=== PATIENT | male | born 1940 | race Caucasian/White ===

== ENCOUNTER → 2016-10-07 | Outpatient (CLI) | payer MEDICARE, OTHER | END | disposition home or self-care (01) | LOC: LAB.O 12:03 | PROVIDERS: ATTEND Internal Medicine Nephrology | DX: N18.4 Chronic kidney disease, stage 4 (severe) (principal) ==

== ENCOUNTER → 2016-12-08 | Outpatient (CLI) | payer MEDICARE, OTHER | END | disposition home or self-care (01) | LOC: GMAB 10:22 | PROVIDERS: ATTEND Family Medicine | DX: Z12.5 Encounter for screening for malignant neoplasm of prostate (principal); I10 Essential (primary) hypertension; E11.8 Type 2 diabetes mellitus with unspecified complications | CPT/HCPCS: 84443; G0103 ==

== ENCOUNTER → 2017-02-24 | Outpatient (CLI) | payer MEDICARE, OTHER | END | disposition home or self-care (01) | LOC: LAB.O 09:24 | PROVIDERS: ATTEND Internal Medicine Nephrology | DX: N18.4 Chronic kidney disease, stage 4 (severe) (principal) ==

== ENCOUNTER → 2017-10-14 | Outpatient (CLI) | payer MEDICARE, OTHER | LOC: LAB.O 08:26 | PROVIDERS: ATTEND Internal Medicine Nephrology | DX: N18.4 Chronic kidney disease, stage 4 (severe) (principal) ==

== ENCOUNTER → 2017-10-15 | Outpatient (CLI) | payer MEDICARE, OTHER ==
--- NOTE | 2017-10-15 13:51 | US ---
EXAM DESCRIPTION: Carotid Duplex CLINICAL HISTORY: CAROTID ARTERY STENOSIS history of prior right carotid surgery COMPARISON: November 08, 2014 TECHNIQUE: Bilateral duplex carotid sonography with grayscale, spectral, and color Doppler imaging. FINDINGS: On the right, intimal thickening in the common carotid artery with either postsurgical or poststenting changes in the distal common carotid artery and origin of the ICA is present without significant stenosis. The peak right CCA velocities are 105/13 cm/s with peak ICA velocities present proximally at 99/14 cm/s. Antegrade flow in the external carotid and vertebral is demonstrated with an ICA/CCA ratio of 0.9. On the left, intimal thickening in the common carotid artery is present with patent ECA origin and modest echogenic plaque at the origin of the ICA. Peak left CCA velocities are 112/17 cm/s and peak ICA velocities are 121/25 cm/s. The ICA/CCA ratio is 1.1 and antegrade flow in the external carotid and vertebral artery is present. IMPRESSION: Postsurgical changes at with widely patent vessel in the right carotid bifurcation region and modest plaque estimated at 30-40% stenotic at the origin of the left ICA without significant flow changes. Antegrade flow both vertebral arteries. Electronically signed by: Von Bustos MD 10/15/2017 1:50 PM CDT
== END ==
LOC: US 09:00
PROVIDERS: ATTEND Family Medicine
DX: I65.23 Occlusion and stenosis of bilateral carotid arteries (principal)

== ENCOUNTER → 2018-02-28 | Outpatient (CLI) | payer MEDICARE, OTHER | LOC: LAB.O 07:51 | PROVIDERS: ATTEND Internal Medicine Nephrology | DX: E11.21 Type 2 diabetes mellitus with diabetic nephropathy (principal); N18.4 Chronic kidney disease, stage 4 (severe); I12.9 Hypertensive chronic kidney disease with stage 1 through stage 4 chronic kidney disease, or unspecified chronic kidney disease; D64.9 Anemia, unspecified ==

== ENCOUNTER → 2018-04-13 | Outpatient (CLI) | payer MEDICARE, OTHER | LOC: GMAE 14:48 | PROVIDERS: ATTEND Family Medicine | DX: G60.3 Idiopathic progressive neuropathy (principal); E83.52 Hypercalcemia; R53.82 Chronic fatigue, unspecified ==

== ENCOUNTER → 2018-07-11 | Outpatient (CLI) | payer MEDICARE, OTHER | LOC: GMAE 10:59 | PROVIDERS: ATTEND Family Medicine | DX: N18.4 Chronic kidney disease, stage 4 (severe) (principal) ==

== ENCOUNTER 2018-09-16 14:10 | Emergency (ER) | payer MEDICARE, OTHER ==
--- NOTE | 2018-09-16 14:29 | ED.PDOC ---
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 PHYSICAL ALERT ORIENTED X 3 PAIN IS BETTER AFTER THE NARCOTIC HIS LEFT KNEE EDEMA AND BRUISING NOTED ON THE PATELLA THERE IS TENDERNESS AND SWELLING OVER THE DISTAL FEMUR NO OPEN WOUNDS NO DISTAL NEURO VASCULAR DEFICIT - History of Present Illness Timing/Duration: 1 hour Severity: moderate Improving Factors: immobilization, medication Worsening Factors: movement Associated Symptoms: denies symptoms Allergies/Adverse Reactions: Allergies Morphine Allergy (Verified 03/24/16 16:19) Home Medications: Ambulatory Orders Duloxetine HCl [Cymbalta] 60 mg PO BID #0 05/01/13 Cetirizine HCl [Zyrtec] 10 mg PO BEDTIME 08/28/14 Clopidogrel Bisulfate [Plavix] 75 mg PO QD 06/25/15 Furosemide [Lasix] 40 mg PO DAILY #10 tab 06/25/15 Magnesium Oxide 800 mg PO BID 06/25/15 Metoprolol Tartrate [Lopressor] 12.5 mg PO QAM 06/25/15 Nitroglycerin 0.4 mg Tab [Nitrostat] 1 ea SL .Q5M PRN 06/25/15 Tamsulosin [Flomax] 0.4 mg PO QD 06/25/15 Dulaglutide [Trulicity] 0.75 mg SC WKLY 09/22/15 HYDROcodone 10MG/APAP 325MG [[place] 10/325] 1 tab PO Q6HR PRN 12/23/15 Insulin Lispro [Humalog] 4 unit SC .QAC/HS 12/23/15 Insulin Glargine [Toujeo Solostar] 60 unit SC DAILY #0 12/24/15 Clonazepam 1 mg PO BID PRN #6 tab 03/24/16 Pregabalin [Lyrica] 75 mg PO BID 03/24/16 Review of Systems - Review of Systems Constitutional: States: no symptoms reported EENTM: States: no symptoms reported Respiratory: States: no symptoms reported Cardiology: States: no symptoms reported Gastrointestinal/Abdominal: States: no symptoms reported Genitourinary: States: no symptoms reported Musculoskeletal: States: no symptoms reported, see HPI Skin: States: no symptoms reported Neurological: States: no symptoms reported Endocrine: States: no symptoms reported Hematologic/Lymphatic: States: no symptoms reported Past Medical History (General) - Patient Medical History Hx Seizures: No Hx Stroke: Yes - "mini" Hx Dementia: No Hx Asthma: No Hx of COPD: No Hx Cardiac Disorders: Yes Hx Congestive Heart Failure: Yes Hx Pacemaker: No Hx Hypertension: Yes Hx Thyroid Disease: No Hx Diabetes: Yes Hx Gastroesophageal Reflux: Yes Hx Renal Disease: Yes Hx Cancer: No Hx of HIV: No Hx Hepatitis C: No Hx MRSA: No - Vaccination History Hx Tetanus, Diphtheria Vaccination: Yes Hx Influenza Vaccination: Yes Hx Pneumococcal Vaccination: Yes - Social History Hx Tobacco Use: No Hx Chewing Tobacco Use: No Hx Alcohol Use: No Hx Substance Use: No Hx Substance Use Treatment: No Hx Depression: Yes Hx Physical Abuse: No Hx Emotional Abuse: No Hx Suspected Abuse: No - Female History Patient : No Family Medical History - Family History Father Family History: Unknown Living Status: Hx Family Hypertension: Yes Hx Cardiac Disease: Yes Physical Exam - Physical Exam General Appearance: Alert, Comfortable Eye Exam: bilateral normal, bilateral abnormal EOM Ears, Nose, Throat: hearing grossly normal, normal ENT inspection, normal pharynx Neck: non-tender, full range of motion, supple Respiratory: chest non-tender, lungs clear, normal breath sounds, no respiratory distress Cardiovascular/Chest: normal peripheral pulses, regular rate, rhythm, no edema, no gallop Peripheral Pulses: femoral,right: 2+, femoral,left: 2+, popliteal,right: 2+, popliteal,left: 2+ Gastrointestinal/Abdominal: normal bowel sounds, non tender, soft, no organomegaly, no pulsatile mass, abnormal bowel sounds 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 Copy, Patient Portal Self Enrollment Instructions: DI for Trauma Referrals: MANASA REES MD [Primary Care Provider] - 1-2 Weeks Home Medications: Ambulatory Orders Duloxetine HCl [Cymbalta] 60 mg PO BID #0 05/01/13 Cetirizine HCl [Zyrtec] 10 mg PO BEDTIME 08/28/14 Clopidogrel Bisulfate [Plavix] 75 mg PO QD 06/25/15 Furosemide [Lasix] 40 mg PO DAILY #10 tab 06/25/15 Magnesium Oxide 800 mg PO BID 06/25/15 Metoprolol Tartrate [Lopressor] 12.5 mg PO QAM 06/25/15 Nitroglycerin 0.4 mg Tab [Nitrostat] 1 ea SL .Q5M PRN 06/25/15 Tamsulosin [Flomax] 0.4 mg PO QD 06/25/15 Dulaglutide [Trulicity] 0.75 mg SC WKLY 09/22/15 HYDROcodone 10MG/APAP 325MG [[place] 10/325] 1 tab PO Q6HR PRN 12/23/15 Insulin Lispro [Humalog] 4 unit SC .QAC/HS 12/23/15 Insulin Glargine [Toujeo Solostar] 60 unit SC DAILY #0 12/24/15 Clonazepam 1 mg PO BID PRN #6 tab 03/24/16 Pregabalin [Lyrica] 75 mg PO BID 03/24/16 Transfer to Outside Facility - Transfer Information Accepting Provider:: DR JANETTE NICHOLS MD Accepting Facility: [facility]
[2018-09-16] MEDS ORDERED: fentaNYL CITRATE INJ 50 MCG/ML AMP ONE (15:47)
[2018-09-16] MEDS ORDERED: fentaNYL CITRATE INJ 50 MCG/ML AMP IV ONE ×2 (15:49→17:25)
[2018-09-16 17:03] VITALS: BP 100/59; O2SAT 93
--- NOTE | 2018-09-16 17:07 | RAD ---
EXAM DESCRIPTION: Knee,Left 2 or More Views CLINICAL HISTORY: injury, fall, pain COMPARISON: None. TECHNIQUE: 2 views left FINDINGS: A comminuted fracture of the distal shaft of the left femur is observed. There is slight impaction. There is one shaft width of posterior displacement of the distal fracture fragment. 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 No significant joint effusion is detected. Marked loss of medial joint space is observed in the knee. IMPRESSION: 1. A comminuted fracture of the distal shaft of the left femur is observed. 2. Degenerative changes are observed in the left knee most pronounced the medial joint compartment. Electronically signed by: Oleg Jean MD 09/16/2018 5:05 PM [facility]
[2018-09-16 17:34] VITALS: TEMP 97.8
== END 2018-09-16 17:35 | disposition short-term general hospital (02) ==
LOC: ER 14:10
DX: S72.452A Displaced supracondylar fracture without intracondylar extension of lower end of left femur, initial encounter for closed fracture (principal); I25.10 Atherosclerotic heart disease of native coronary artery without angina pectoris; N18.9 Chronic kidney disease, unspecified; I13.0 Hypertensive heart and chronic kidney disease with heart failure and stage 1 through stage 4 chronic kidney disease, or unspecified chronic kidney disease; F32.9 Major depressive disorder, single episode, unspecified; I50.9 Heart failure, unspecified; E11.22 Type 2 diabetes mellitus with diabetic chronic kidney disease; K21.9 Gastro-esophageal reflux disease without esophagitis; Z79.02 Long term (current) use of antithrombotics/antiplatelets; Z95.5 Presence of coronary angioplasty implant and graft; Z88.5 Allergy status to narcotic agent; Z86.73 Personal history of transient ischemic attack (TIA), and cerebral infarction without residual deficits; Z79.899 Other long term (current) drug therapy; Z79.4 Long term (current) use of insulin; W19.XXXA Unspecified fall, initial encounter; Y92.000 Kitchen of unspecified non-institutional (private) residence as the place of occurrence of the external cause
CPT/HCPCS: 36415; 73560; 80053; 85025; 85610; 85730; J3010

== ENCOUNTER 2018-10-12 13:48 | Emergency (ER) | payer MEDICARE, OTHER ==
--- NOTE | 2018-10-12 14:22 | ED.PDOC ---
History of Present Illness - General Chief Complaint: Syncope/Near Syncope Stated Complaint: Pt had near syncopal event while at PT Time Seen by Provider: 10/12/18 14:13 Source: patient, family, EMS Exam Limitations: clinical condition - History of Present Illness Initial Comments: Patient presents after being found unresponsive at [facility]. He is there for rehabilitation for a left femur fracture one week ago that was surgically repaired. He was on Plavix before that because he has two cardiac stents but was taken off for the surgery. He has been on Lovenox for post-surgical DVT prophylaxis. He presents to the E.D. alert to name and place. His GCS is 15. His says that he is at his baseline. No history of dementia. Has IDDM and has had renal insufficiency due to that. Denies dyspnea or chest pain. His systolic blood pressure was in the 60s when EMS arrived but it went to the low 100s after 250 ml IV NS. No history of DVT or PE. No other complaints. Timing/Duration: unsure Severity: moderate Improving Factors: nothing, eating Associated Symptoms: denies symptoms Allergies/Adverse Reactions: Allergies Morphine Allergy (Verified 10/12/18 14:22) Home Medications: Ambulatory Orders Duloxetine HCl [Cymbalta] 60 mg PO BID #0 05/01/13 Clopidogrel Bisulfate [Plavix] 75 mg PO QD 06/25/15 Furosemide [Lasix] 40 mg PO DAILY #10 tab 06/25/15 Magnesium Oxide 800 mg PO BID 06/25/15 Metoprolol Tartrate [Lopressor] 12.5 mg PO QAM 06/25/15 Nitroglycerin 0.4 mg Tab [Nitrostat] 1 ea SL .Q5M PRN 06/25/15 Tamsulosin [Flomax] 0.4 mg PO QD 06/25/15 Dulaglutide [Trulicity] 0.75 mg SC WKLY 09/22/15 HYDROcodone 10MG/APAP 325MG [[place] [address]] 1 tab PO Q6HR PRN 12/23/15 Insulin Glargine [Toujeo Solostar] 60 unit SC DAILY #0 12/24/15 Pregabalin [Lyrica] 75 mg PO BID 03/24/16 Review of Systems - Review of Systems Constitutional: States: see HPI EENTM: States: no symptoms reported Respiratory: States: no symptoms reported Cardiology: States: no symptoms reported Gastrointestinal/Abdominal: States: no symptoms reported Genitourinary: States: no symptoms reported Musculoskeletal: States: no symptoms reported Skin: States: no symptoms reported Neurological: States: see HPI Endocrine: States: see HPI Hematologic/Lymphatic: States: no symptoms reported Past Medical History (General) - Patient Medical History Hx Seizures: No Hx Stroke: Yes - "mini" Hx Dementia: No Hx Asthma: No Hx of COPD: No Hx Cardiac Disorders: Yes Hx Congestive Heart Failure: Yes Hx Pacemaker: No Hx Hypertension: Yes Hx Thyroid Disease: No Hx Diabetes: Yes Hx Gastroesophageal Reflux: Yes Hx Renal Disease: Yes Hx Cancer: No Hx of HIV: No Hx Hepatitis C: No Hx MRSA: No - Vaccination History Hx Tetanus, Diphtheria Vaccination: Yes Hx Influenza Vaccination: Yes Hx Pneumococcal Vaccination: Yes - Social History Hx Tobacco Use: No Hx Chewing Tobacco Use: No Hx Alcohol Use: No Hx Substance Use: No Hx Substance Use Treatment: No Hx Depression: Yes Hx Physical Abuse: No Hx Emotional Abuse: No Hx Suspected Abuse: No - Female History Patient : No Family Medical History - Family History Father Family History: Unknown Living Status: Hx Family Hypertension: Yes Hx Cardiac Disease: Yes Physical Exam - Physical Exam General Appearance: Alert Eye Exam: bilateral normal Ears, Nose, Throat: normal ENT inspection Neck: non-tender, full range of motion, supple Respiratory: lungs clear, normal breath sounds Cardiovascular/Chest: normal peripheral pulses, regular rate, rhythm, no edema Gastrointestinal/Abdominal: normal bowel sounds, non tender, soft Back Exam: normal inspection, no CVA tenderness Extremity: normal range of motion, non-tender, normal inspection 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, no motor/sensory deficits, alert, normal mood/affect, oriented x 3 Skin Exam: normal color Lymphatic: no adenopathy Progress - Progress Progress: 10/12/18 18:25 Laboratory Tests 10/12/18 10/12/18 10/12/18 14:26 14:26 14:26 WBC 7.2 RBC 3.34 L Hgb 9.8 L Hct 30.3 L MCV 90.9 MCH 29.3 MCHC 32.3 L RDW 16.4 H Plt Count 187 MPV 8.7 Absolute Neuts (auto) 4.20 Absolute Lymphs (auto) 1.80 Absolute Monos (auto) 0.60 Absolute Eos (auto) 0.60 H Absolute Basos (auto) 0.00 Neutrophils % 58.0 Lymphocytes % 25.1 Monocytes % 8.2 Eosinophils % 8.2 H Basophils % 0.5 PT 10.2 INR 1.02 PTT (SP) 24.7 D-Dimer, Quantitative Sodium 141 Potassium 5.0 Chloride 105 Carbon Dioxide 23 Anion Gap 18.0 BUN 70 H Creatinine 4.09 H BUN/Creatinine Ratio 17.1 Random Glucose 243 H Serum Osmolality 309.8 H Calcium 7.7 L Total Bilirubin 0.7 AST 21 ALT 15 Alkaline Phosphatase 164 H Creatine Kinase 33 L CK-MB (CK-2) 2.8 CK-MB (CK-2) % 8.48 H Troponin I 0.04 B-Natriuretic Peptide 490.0 H* Serum Total Protein 6.0 L Albumin 2.7 L Globulin 3.3 Albumin/Globulin Ratio 0.8 L 10/12/18 14:26 WBC RBC Hgb Hct MCV MCH MCHC RDW Plt Count MPV Absolute Neuts (auto) Absolute Lymphs (auto) Absolute Monos (auto) Absolute Eos (auto) Absolute Basos (auto) Neutrophils % Lymphocytes % Monocytes % Eosinophils % Basophils % PT INR PTT (SP) D-Dimer, Quantitative 7.96 H* Sodium Potassium Chloride Carbon Dioxide Anion Gap BUN Creatinine BUN/Creatinine Ratio Random Glucose Serum Osmolality Calcium Total Bilirubin AST ALT Alkaline Phosphatase Creatine Kinase CK-MB (CK-2) CK-MB (CK-2) % Troponin I B-Natriuretic Peptide Serum Total Protein Albumin Globulin Albumin/Globulin Ratio CT head showed an area of left parietal and posterior frontal low density but nothing clearly acute. D-dimer was 7.96 which is not suprising considering the patient's CRI. However, the recent LLE orthopedic surgery and the sudden drop in blood pressure were risk factors for PE. CTA chest was attempted but was non-diagnostic due to the low amount of contrast used because of the CRI. The patient responded well to fluid therapy but a PE could still not be ruled out. I discussed this with the and it was agreed to transfer the patient to [facility] for a V/Q scan. 10/12/18 18:26 10/12/18 18:27 Departure - Departure Clinical Impression: Hypovolemia, Elevated d-dimer, Unresponsive episode Disposition: Transfer to Hospital Condition: Fair Departure Forms: ED Discharge - Pt. Copy, Patient Portal Self Enrollment Diet: other - NPO Activity: other - as per hospitalist Referrals: MANASA REES MD [Primary Care Provider] - 1-2 Weeks Home Medications: Ambulatory Orders Duloxetine HCl [Cymbalta] 60 mg PO BID #0 05/01/13 Clopidogrel Bisulfate [Plavix] 75 mg PO QD 06/25/15 Furosemide [Lasix] 40 mg PO DAILY #10 tab 06/25/15 Magnesium Oxide 800 mg PO BID 06/25/15 Metoprolol Tartrate [Lopressor] 12.5 mg PO QAM 06/25/15 Nitroglycerin 0.4 mg Tab [Nitrostat] 1 ea SL .Q5M PRN 06/25/15 Tamsulosin [Flomax] 0.4 mg PO QD 06/25/15 Dulaglutide [Trulicity] 0.75 mg SC WKLY 09/22/15 HYDROcodone 10MG/APAP 325MG [[place] 10/325] 1 tab PO Q6HR PRN 12/23/15 Insulin Glargine [Toujeo Solostar] 60 unit SC DAILY #0 12/24/15 Pregabalin [Lyrica] 75 mg PO BID 03/24/16 Critical Care Note - Critical Care Note Total Time (mins): 90 Transfer to Outside Facility - Transfer Information Accepting Facility: [facility] Reason for Transfer: specialized care not available - V/Q scan
--- NOTE | 2018-10-12 14:52 | CT ---
EXAM DESCRIPTION: Head CT without contrast CLINICAL HISTORY: unresponsive episode COMPARISON: Previous CT head September 18, 2015 TECHNIQUE: Noncontrast head CT was performed with routine protocol. FINDINGS: There is moderate motion degradation. Low density of the white matter of the left posterior frontal and left parietal lobe is seen with sparing of the greer matter. Vasogenic edema surrounding nonvisualized brain lesion must be considered with this finding. However there is minimal evidence of sulcal effacement. If the patient has a primary malignancy, occult metastasis might be considered. Otherwise, infarct of a nonacute nature would be more likely than an acute infarct. This finding is new compared to the previous study. MRI of the brain without and with contrast or postcontrast CT imaging of the brain may be helpful. In other areas there is normal greer-white matter differentiation. Ventricles and sulci are prominent consistent with age-related cerebral volume loss. No high density hemorrhage or shift of the midline. No significant sulcal effacement. Normal orbital contents. Basilar cisterns appear clear. Intact calvarium with no fracture or lytic lesion. Normal aeration of tympanic cavities and mastoid air cells. No fluid levels in the paranasal sinuses. Skull base appears intact. Symmetrical internal auditory canals. IMPRESSION: Low density left parietal and posterior frontal white matter with differential considerations including vasogenic edema or nonacute infarction. Further evaluation is recommended as discussed above. This exam was performed according to our departmental dose-optimization program, which includes automated exposure control, adjustment of the mA and/or kV according to patient size and/or use of iterative reconstruction technique. Total DLP equals 752.48 mGycm. Electronically signed by: Edwin Guerra MD 10/12/2018 2:49 PM CDT
--- NOTE | 2018-10-12 14:53 | RAD ---
EXAM DESCRIPTION: Chest,1 View CLINICAL HISTORY: 78 years Male, unresponsive COMPARISON: None. TECHNIQUE: AP portable chest. FINDINGS: Heart size is large with prominent pulmonary vascularity. Wide mediastinum may be vascular although mass or adenopathy cannot be excluded. Upright PA and lateral x-ray is recommended for further evaluation when patient is stable. Otherwise chest CT could be performed. No consolidating infiltrate. TENS unit electrode leads in the lower T-spine. No pulmonary mass or worrisome nodule. No pneumothorax or pleural effusion. Bones are unremarkable. IMPRESSION: Large heart with mild vascular congestion. Widened mediastinum. See above. Electronically signed by: Edwin Guerra MD 10/12/2018 2:50 PM CDT
[2018-10-12] MEDS ORDERED: SODIUM CHLORIDE 0.9% 1000ML 1,000 ML IVS PRN (15:13)
--- NOTE | 2018-10-12 17:47 | CT ---
EXAM: CTA chest with contrast CLINICAL INDICATION: Syncope, abnormal D-dimer test COMPARISON: None. TECHNIQUE: CTA of the chest was performed using contiguous axial 2.5mm postcontrast sections through the chest including IV contrast with 3-D reconstructions. This exam was performed according to our departmental dose-optimization program, which includes automated exposure control, adjustment of the mA and/or kV according to patient size and/or use of iterative reconstruction technique. FINDINGS: This exam is nondiagnostic for PE evaluation due to poor contrast opacification of the pulmonary arteries. There are no findings to suggest aortic dissection. There are no enlarged mediastinal or hilar lymph nodes. The visualized portions of the upper abdominal structures are unremarkable. Mild areas of subsegmental atelectasis are noted in both lung bases. The lungs are otherwise clear. There is no pneumothorax or pleural effusion. IMPRESSION: 1. Nondiagnostic for PE evaluation due to suboptimal contrast opacification of the pulmonary arteries. Repeat CTA versus VQ scan is recommended for further evaluation. 2. Otherwise unremarkable CT appearance of the chest. Electronically signed by: Chintan Dave MD 10/12/2018 5:44 PM CDT
[2018-10-12 17:59] VITALS: TEMP 97.4
[2018-10-12 18:42] VITALS: BP 128/82
[2018-10-12 18:47] VITALS: O2SAT 94
== END 2018-10-12 18:47 | disposition short-term general hospital (02) ==
LOC: ER 13:48
DX: R55 Syncope and collapse (principal); R79.89 Other specified abnormal findings of blood chemistry; E86.1 Hypovolemia; I50.9 Heart failure, unspecified; N18.9 Chronic kidney disease, unspecified; I13.10 Hypertensive heart and chronic kidney disease without heart failure, with stage 1 through stage 4 chronic kidney disease, or unspecified chronic kidney disease; E11.22 Type 2 diabetes mellitus with diabetic chronic kidney disease; F32.9 Major depressive disorder, single episode, unspecified; K21.9 Gastro-esophageal reflux disease without esophagitis; Z86.73 Personal history of transient ischemic attack (TIA), and cerebral infarction without residual deficits; Z79.4 Long term (current) use of insulin; Z79.899 Other long term (current) drug therapy; Z88.5 Allergy status to narcotic agent; Z87.81 Personal history of (healed) traumatic fracture; Z98.890 Other specified postprocedural states; Z95.5 Presence of coronary angioplasty implant and graft
CPT/HCPCS: 36415; 70450; 71045; 71275; 80048; 80053; 82550; 82553; 83880; 84484; 85025; 85379; 85610; 85730; 93005; J7030

== ENCOUNTER 2018-12-05 14:35 | Observation (INO) | payer MEDICARE, OTHER ==
--- NOTE | 2018-12-05 15:19 | RAD ---
EXAM DESCRIPTION: Chest,1 View CLINICAL HISTORY: 78 years Male, shortness of breath COMPARISON: October 12, 2018 TECHNIQUE: AP portable chest. FINDINGS: A fair inspiration is noted with clear lung weller. Moderate cardiomegaly is little changed from prior study. Vascularity is slightly prominent but felt to be within the upper range of normal. No effusions or alveolar edema or masses noted. IMPRESSION: Cardiomegaly without congestive failure. Electronically signed by: Von Bustos MD 12/05/2018 3:17 PM CDT
[2018-12-05] MEDS: cloNIDine HCL 0.1 MG TAB PO ONE (16:10)
[2018-12-05] MEDS: SODIUM CHLORIDE 0.9% 500ML 500 ML IVS ONE (16:57)
--- NOTE | 2018-12-05 16:59 | ED.PDOC ---
History of Present Illness - General Chief Complaint: Respiratory Problem Stated Complaint: shortness of breath prior to arrival Time Seen by Provider: 12/05/18 16:42 Source: patient Exam Limitations: no limitations - History of Present Illness Initial Comments: Angel Sung 78 y/o male brought by EMS with worsening SOB started this morning;Denies chest pains,N/V,cough. Timing/Duration: 1-3 hours Severity: moderate Activities at Onset: rest Possible Cause: occasional episodes Improving Factors: nothing Worsening Factors: nothing Associated Symptoms: other - see hpi Respiratory Risk Factors: no cause identified Allergies/Adverse Reactions: Allergies Morphine Allergy (Verified 12/05/18 15:00) Home Medications: Ambulatory Orders Duloxetine HCl [Cymbalta] 60 mg PO BID #0 05/01/13 Clopidogrel Bisulfate [Plavix] 75 mg PO QD 06/25/15 Furosemide [Lasix] 40 mg PO DAILY #10 tab 06/25/15 Magnesium Oxide 800 mg PO BID 06/25/15 Metoprolol Tartrate [Lopressor] 12.5 mg PO QAM 06/25/15 Nitroglycerin 0.4 mg Tab [Nitrostat] 1 ea SL .Q5M PRN 06/25/15 Tamsulosin [Flomax] 0.4 mg PO QD 06/25/15 Dulaglutide [Trulicity] 0.75 mg SC WKLY 09/22/15 HYDROcodone 10MG/APAP 325MG [Odin 10/325] 1 tab PO Q6HR PRN 12/23/15 Insulin Glargine [Toujeo Solostar] 60 unit SC DAILY #0 12/24/15 Pregabalin [Lyrica] 75 mg PO BID 03/24/16 Review of Systems - Review of Systems Constitutional: States: no symptoms reported EENTM: States: no symptoms reported Respiratory: States: see HPI Cardiology: States: no symptoms reported Gastrointestinal/Abdominal: States: no symptoms reported Genitourinary: States: no symptoms reported Musculoskeletal: States: no symptoms reported Skin: States: no symptoms reported Neurological: States: no symptoms reported All other Systems: Reviewed and Negative, No Change from Baseline Past Medical History (General) - Patient Medical History Hx Seizures: No Hx Stroke: No Hx Dementia: No Hx Asthma: No Hx of COPD: Yes Hx Cardiac Disorders: Yes Hx Congestive Heart Failure: Yes Hx Pacemaker: No Hx Hypertension: Yes Hx Thyroid Disease: No Hx Diabetes: Yes Hx Gastroesophageal Reflux: No Hx Renal Disease: No Hx Cancer: No Hx of HIV: No Hx Hepatitis C: No Hx MRSA: No Surgical History: angioplasty, cholecystectomy, pacemaker, other - cardiac stent;left knee surgery - Vaccination History Hx Tetanus, Diphtheria Vaccination: Yes Hx Influenza Vaccination: Yes Hx Pneumococcal Vaccination: Yes Immunizations Up to Date: Yes - Social History Hx Tobacco Use: No Hx Chewing Tobacco Use: No Hx Alcohol Use: No Hx Substance Use: No Hx Substance Use Treatment: No Hx Depression: No Feels Threatened In Home Enviroment: No Feels Threatened In a Relationship: No Hx Physical Abuse: No Hx Emotional Abuse: No Hx Suspected Abuse: No - Female History Patient is a Female of Child Bearing Age (10 -59 yrs old): No Patient : No Family Medical History - Family History Father Family History: Unknown Living Status: Hx Family Asthma: No Hx Family Congestive Heart Failure: No Hx Family Hypertension: Yes Hx Cardiac Disease: Yes Physical Exam - Physical Exam General Appearance: Alert, Comfortable, No apparent distress Neck: supple, normal inspection Respiratory: decreased breath sounds Cardiovascular/Chest: normal peripheral pulses, regular rate, rhythm, no murmur Peripheral Pulses: radial,right: 2+, radial,left: 2+ Gastrointestinal/Abdominal: normal bowel sounds, non tender, soft Extremity: no pedal edema, no calf tenderness Neurologic: alert Skin Exam: normal color, warm/dry Progress - Progress Progress: 12/05/18 17:01 Vital Signs - 8 hr 12/05/18 12/05/18 12/05/18 14:40 15:01 16:00 Temperature 98.1 F 97.9 F Pulse Rate [ 61 68 Left Radial] Respiratory 20 20 164 H Rate Blood Pressure 165/97 191/94 [Left Arm] O2 Sat by Pulse 98 97 Oximetry - Results/Orders Results/Orders: 12/05/18 14:55 CARDIAC PANEL,ER Stat 12/05/18 15:00 EKG STAT Laboratory Results - last 24 hr 12/05/18 14:55 WBC 8.3 RBC 4.03 L Hgb 11.7 L Hct 35.8 L MCV 88.9 MCH 28.9 MCHC 32.5 L RDW 16.7 H Plt Count 207 MPV 8.3 Absolute Neuts (auto) 5.30 Absolute Lymphs (auto) 1.70 Absolute Monos (auto) 0.70 Absolute Eos (auto) 0.50 H Absolute Basos (auto) 0.10 Neutrophils % 63.6 Lymphocytes % 21.0 Monocytes % 8.8 Eosinophils % 5.8 H Basophils % 0.8 PT 9.4 INR 0.94 PTT (SP) 23.0 Sodium 138 Potassium 5.4 H Chloride 99 L Carbon Dioxide 27 Anion Gap 17.4 BUN 58 H Creatinine 3.29 H BUN/Creatinine Ratio 17.6 Random Glucose 125 H Serum Osmolality 293.3 Calcium 8.6 Magnesium 2.9 H Creatine Kinase 40 CK-MB (CK-2) 2.0 Troponin I 0.02 Given oral Clonidine 0.1 mg andHydralazine 10 mg but unable to get blood pressure down so D/W Carlitos Graves ANP/Hospitalist for admit Departure - Departure Clinical Impression: Hypertension, uncontrolled, CKD (chronic kidney disease) stage 4, GFR 15-29 ml/min Time of Disposition: 19:05 Disposition: Admit Patient Condition: Fair Departure Forms: Patient Portal Self Enrollment Referrals: MANASA REES MD [Primary Care Provider] - 1-2 Weeks Home Medications: Ambulatory Orders Duloxetine HCl [Cymbalta] 60 mg PO BID #0 05/01/13 Clopidogrel Bisulfate [Plavix] 75 mg PO QD 06/25/15 Furosemide [Lasix] 40 mg PO DAILY #10 tab 06/25/15 Magnesium Oxide 800 mg PO BID 06/25/15 Metoprolol Tartrate [Lopressor] 12.5 mg PO QAM 06/25/15 Nitroglycerin 0.4 mg Tab [Nitrostat] 1 ea SL .Q5M PRN 06/25/15 Tamsulosin [Flomax] 0.4 mg PO QD 06/25/15 Dulaglutide [Trulicity] 0.75 mg SC WKLY 09/22/15 HYDROcodone 10MG/APAP 325MG [Odin 10] 1 tab PO Q6HR PRN 12/23/15 Insulin Glargine [Toujeo Solostar] 60 unit SC DAILY #0 12/24/15 Pregabalin [Lyrica] 75 mg PO BID 03/24/16 Decision To Admit - Decistion To Admit Decision to Admit Reason: Admit from ER Decision to Admit Date: 12/05/18 - D/W Carlitos Graves-ANP/Hospitalist Decision to Admit Time: 19:02
[2018-12-05] MEDS: SOD POLYSTYRENE SULFONATE 15 GM/60 ML BTTL PO ONE (17:28)
[2018-12-05] MEDS: hydrALAZINE HCl 20 MG/ML VIAL IV ONE (17:28)
[2018-12-05] MEDS: SODIUM CHLORIDE 0.9% 250ML 250 ML IVS ONE (18:52)
[2018-12-05] MEDS ORDERED: MAGNESIUM HYDROXIDE 30 ML UD PO PRN (20:26)
[2018-12-05] MEDS ORDERED: SODIUM CHLORIDE 0.9% (FLUSH) 10 ML SYG IV PRN (20:26)
[2018-12-05] MEDS ORDERED: ACETAMINOPHEN 325 MG TAB PO PRN (20:26)
[2018-12-05] MEDS ORDERED: ALUM & MAG HYDROX-SIMETHICONE 30 ML UD PO PRN (20:26)
[2018-12-05] MEDS ORDERED: GLUCAGON INJ 1 MG VIAL SUBCU PRN (20:28)
[2018-12-05] MEDS ORDERED: DEXTROSE 50% 25 GM/50 ML SYG IV PRN (20:28)
[2018-12-05] MEDS ORDERED: IV SET AND CAP CHANGE INJ INJ SCH (20:30)
[2018-12-05 20:52] VITALS: BP 191/89; TEMP 98.2; O2SAT 94
[2018-12-05] MEDS ORDERED: INSULIN LISPRO 100 UNITS/ML PEN SUBCU SCH (21:00)
--- NOTE | 2018-12-06 08:13 | SSS ---
SUPERVISING PHYSICIAN: Leslie Fernandez MD CHIEF COMPLAINT: Uncontrolled hypertension. HISTORY OF PRESENT ILLNESS: Mr. Sorto is a 78-year-old, male patient that presented to the Emergency Department on 12/05/18 complaining of some mild shortness of breath and anxiety. He was seen in the Emergency Room and found to be hypertensive with initial vital signs showing a blood pressure of maximum of 203/97. He was treated with clonidine and hydralazine. He denied any chest pains, vision changes, nausea or vomiting. He does have a history of chronic renal failure and hypertension which is normally controlled. He also has some issues of anxiety and felt that maybe he was having a panic attack and had taken some Xanax several hours prior to presenting to the Emergency Department. His laboratory studies showed he had a normal white count of 8,300 with hemoglobin 11.7, hematocrit 35.8, platelet count 207,000. Differential was without a left shift. Chemistries showed potassium 5.4, BUN 58, creatinine 3.29. Troponin was less than 0.02. He was given a dose of Kayexalate in the Emergency Room for the hyperkalemia. His blood pressure was fairly well controlled at 182/[address] Woods, Emergency Room physician, requested the patient be placed in observation for further monitoring of his blood pressure overnight to ensure it stabilizes. The patient was placed in observation in stable condition. His blood pressure at time of admission was 154/70, heart rate 82, saturation 97% on room air. Shortly after admission, within less than probably an hour, the patient became very upset, expressed that he was not going to stay overnight and that he wanted to go home. Therefore, warnings were given after being told it would be beneficial for him to stay at least overnight. Again, the patient refused to stay and requested to leave and agreed to leave against medical advice. PAST MEDICAL HISTORY: 1. Hyperlipidemia. 2. Hypertension, normally controlled. 3. Osteoarthritis. 4. Renal insufficiency. 5. Benign prostatic hypertrophy. 6. Type 2 diabetes mellitus, poorly controlled. 7. Anxiety and depression on Cymbalta. PAST SURGICAL HISTORY: 1. Cholecystectomy. 2. Right total hip replacement. 3. Bilateral knee arthroscopies. 4. Bilateral shoulder arthroscopies. 5. Pain stimulator for pain control which is not working and is not currently in service. 6. Low back surgery. 7. Bilateral cataracts. 8. Open reduction and internal fixation of a closed femur fracture of the left femur in 2018. HOME MEDICATIONS: Please list of updated and verified medications by nurses in electronic medical record. ALLERGIES: MORPHINE. FAMILY HISTORY: Noncontributory. SOCIAL HISTORY: The patient is retired and lives in [place]. He is . He did smoke cigars, but quit 30 yeas previously. He does not drink alcohol or use illicit drugs. REVIEW OF SYSTEMS: CONSTITUTIONAL: Denied fevers, chills, general malaise, body aches, unintentional weight loss or weight gain. HEENT: Negative for headaches, sore throats, earaches, nasal congestion, vision changes. RESPIRATORY: As noted in history of present illness, some mild shortness of breath. CARDIOVASCULAR: Negative for chest pain, palpitations or syncopal episodes. GASTROINTESTINAL: Negative for nausea, vomiting, diarrhea, constipation or abdominal pain. GENITOURINARY: Negative for dysuria, hematuria, polyuria. MUSCULOSKELETAL: As noted, recent left femur fracture with open reduction and internal fixation ongoing therapy. No other complaints. SKIN: Positive for candidal rash to the groin. NEUROLOGIC: Negative for any vision changes, ataxia, syncopal episodes, headaches, migraines or any other acute neurologic symptoms. PHYSICAL EXAMINATION: VITAL SIGNS: Blood pressure 203/97. Heart rate 73. Temperature 97.6. Respirations 22. Saturation 99% on room air. After clonidine and hydralazine and on admission to the Medical/Surgical Floor, blood pressure was 154/70. Prior to discharge, blood pressure was 162/89 with heart rate 79, saturation 97% on room air, respirations 18, temperature 99.1. GENERAL: The patient appeared to be in no acute distress, but was quite upset, anxious and voiced to go home. HEENT: Tympanic membranes clear bilaterally. Oropharynx is pink, moist without any lesions. NECK: Supple, nontender with full range of motion. No jugular venous distention noted. RESPIRATORY: Lungs clear to auscultation bilaterally without any rhonchi, wheezes or rales. CARDIOVASCULAR: Regular rate and rhythm without any appreciable murmurs, gallops, or rubs. ABDOMEN: Soft, obese, but nontender. Positive bowel sounds. GENITOURINARY: Candidal intertrigo to the groin area and scrotum. No other lesions or rashes. RECTAL: Deferred. BACK: Nontender. No CVA tenderness. EXTREMITIES: There is no cyanosis, clubbing or edema. There is an old surgical scar on the left leg which appears to be healing without any complications. NEUROLOGIC: The patient is alert and oriented times three. Cranial nerves II- XII are grossly intact. Facial features are symmetrical. There is no nystagmus noted. LABORATORY: White count 8,300, hemoglobin 11.7, hematocrit 35.8, platelet count 207,000, differential without a left shift. Coagulation studies showed a normal PT and PTT. Chemistries showed a mildly elevated potassium at 5.4, sodium 138, BUN 58, creatinine 3.29, glucose 125, magnesium 2.9. Liver functions within normal limits. CPK normal at 40. Troponin 0.02. EKG: Normal sinus rhythm with left fascicular block with no acute changes compared to previous EKG on 06/15/18. RADIOLOGY: Chest x-ray of single-view chest per radiologic interpretation shows cardiomegaly without congestive failure. ADMISSION DIAGNOSIS: 1. Uncontrolled hypertension with urgency, showing good control with clonidine and hydralazine. 2. Acute on chronic renal failure with creatinine appearing to be at baseline levels compared to labs on past medical records. 3. Diabetes mellitus, type 2, poorly controlled. DISCHARGE DIAGNOSIS: 1. Uncontrolled hypertension with urgency, showing good control with clonidine and hydralazine. 2. Acute on chronic renal failure with creatinine appearing to be at baseline levels compared to labs on past medical records. 3. Diabetes mellitus, type 2, poorly controlled. HOSPITAL COURSE: Mr. Sorto was placed in observation initially from the Emergency Room for further monitoring of his blood pressure for the treatment of hypertensive urgency. His blood pressure had good control prior to admission to the Medical/Surgical Floor as noted above. On admission to the Medical/Surgical Floor, the patient became very angry and upset and expressed that he was not going to stay overnight and told his to go get his wheelchair. After explaining at length to the patient the possible bad outcomes, the patient still refused to stay and was given advice that he was going to be discharged leaving against medical advice. The patient agreed to sign paperwork. Again, he was given warnings to return to the Emergency Room or call 911 should he have any worsening symptoms. It was also explained to his that if she had any concerns, she should call 911 and have the patient return to the Emergency Room. He was advised to go see Dr. Fernandez in the morning or at minimum to call his office. I did touch base with Dr. Fernandez to let him know that the patient had opted to leave against medical advice and Dr. Fernandez agreed that he would have his nurse call in the morning to check on the patient. PLAN: The patient was discharged against medical advice. He was given instructions to followup with Dr. Fernandez in the morning. He was told to take his home medications once he got home tonight and, again, to return to the Emergency Room should he have any worsening of his symptoms to include anything concerning such as shortness of breath, chest pain, headaches, vision problems, dizziness or other worsening symptoms. All medications prior to hospitalization were continued as is. Diet was diabetic diet as tolerated. Activity as per physical therapy and per Dr. Fernandez. CONDITION AT DISCHARGE: Stable and improved. DISPOSITION: The patient was discharged against medical advice to the care of his and to home. #[id number] MTDD
== END 2018-12-05 21:30 | disposition left against medical advice (07) ==
LOC: ER 14:35 → UNDOADMOB 19:45 → MS 19:45
PROVIDERS: ADMIT Nurse Practitioner Family; ATTEND Nurse Practitioner Family
DX: I16.0 Hypertensive urgency (principal); I13.10 Hypertensive heart and chronic kidney disease without heart failure, with stage 1 through stage 4 chronic kidney disease, or unspecified chronic kidney disease; E11.22 Type 2 diabetes mellitus with diabetic chronic kidney disease; N18.4 Chronic kidney disease, stage 4 (severe); N17.9 Acute kidney failure, unspecified; F41.9 Anxiety disorder, unspecified; F32.9 Major depressive disorder, single episode, unspecified; E78.5 Hyperlipidemia, unspecified; N40.0 Benign prostatic hyperplasia without lower urinary tract symptoms; M19.90 Unspecified osteoarthritis, unspecified site; I44.60 Unspecified fascicular block; Z79.4 Long term (current) use of insulin; Z79.02 Long term (current) use of antithrombotics/antiplatelets; Z79.899 Other long term (current) drug therapy; Z88.6 Allergy status to analgesic agent; Z87.891 Personal history of nicotine dependence; Z96.641 Presence of right artificial hip joint; Z95.0 Presence of cardiac pacemaker; Z95.5 Presence of coronary angioplasty implant and graft
CPT/HCPCS: 96374; J0360; J7040; J7050; 82948; 82550; 80048; 82553; 85025; 85730; 85610; 84484; 36416; 71045; 99285; 93005

== ENCOUNTER 2019-02-27 15:21 | Emergency (ER) | payer MEDICARE, OTHER ==
--- NOTE | 2019-02-27 17:01 | RAD ---
EXAM DESCRIPTION: Chest,1 View CLINICAL HISTORY: 78 years Male, cough, low O2 sat COMPARISON: Previous study December 05, 2018 TECHNIQUE: AP portable chest. FINDINGS: Heart size is large with normal pulmonary vascularity. Correlate with echocardiographic findings. No consolidating infiltrate. No pulmonary mass or worrisome nodule. No pneumothorax or pleural effusion. Bones are unremarkable. IMPRESSION: Large heart without congestive failure. Electronically signed by: Edwin Guerra MD 02/27/2019 5:00 PM CDT
[2019-02-27 18:55] VITALS: TEMP 97.9
--- NOTE | 2019-02-27 18:59 | ED.PDOC ---
History of Present Illness - General Chief Complaint: Respiratory Problem Stated Complaint: SOB Time Seen by Provider: 02/27/19 18:33 Source: patient, EMS Exam Limitations: no limitations - History of Present Illness Initial Comments: Angel Sorto 78 y/o male brought to [facility] with SOB after HHN caled up that patient had low SAO2.patient stated that he uses home 02 as needed.Denies chest pains,dizziness or headaches. Timing/Duration: 1-3 hours Severity: moderate Activities at Onset: activity Possible Cause: occasional episodes Improving Factors: rest Worsening Factors: movement Associated Symptoms: denies symptoms Respiratory Risk Factors: other - history of CHF Allergies/Adverse Reactions: Allergies Morphine Allergy (Verified 12/05/18 15:00) Home Medications: Ambulatory Orders Duloxetine HCl [Cymbalta] 60 mg PO BID #0 05/01/13 Clopidogrel Bisulfate [Plavix] 75 mg PO QD 06/25/15 Furosemide [Lasix] 40 mg PO DAILY #10 tab 06/25/15 Magnesium Oxide 800 mg PO BID 06/25/15 Metoprolol Tartrate [Lopressor] 12.5 mg PO QAM 06/25/15 Nitroglycerin 0.4 mg Tab [Nitrostat] 1 ea SL .Q5M PRN 06/25/15 Tamsulosin [Flomax] 0.4 mg PO QD 06/25/15 Dulaglutide [Trulicity] 0.75 mg SC WKLY 09/22/15 HYDROcodone 10MG/APAP 325MG [[place] 10/325] 1 tab PO Q6HR PRN 12/23/15 Insulin Glargine [Toujeo Solostar] 60 unit SC DAILY #0 12/24/15 Pregabalin [Lyrica] 75 mg PO BID 03/24/16 Review of Systems - Review of Systems Constitutional: States: no symptoms reported EENTM: States: no symptoms reported Respiratory: States: see HPI Cardiology: States: no symptoms reported Gastrointestinal/Abdominal: States: no symptoms reported Genitourinary: States: no symptoms reported Musculoskeletal: States: no symptoms reported Skin: States: no symptoms reported Neurological: States: no symptoms reported All other Systems: Reviewed and Negative, No Change from Baseline Past Medical History (General) - Patient Medical History Hx Seizures: No Hx Stroke: No Hx Dementia: No Hx Asthma: No Hx of COPD: Yes Hx Cardiac Disorders: Yes Hx Congestive Heart Failure: Yes Hx Pacemaker: No Hx Hypertension: Yes Hx Thyroid Disease: No Hx Diabetes: Yes Hx Gastroesophageal Reflux: No Hx Renal Disease: No Hx Cancer: No Hx of HIV: No Hx Hepatitis C: No Hx MRSA: No Surgical History: appendectomy, cholecystectomy, pacemaker, other - cardiac stent,left knee - Vaccination History Hx Tetanus, Diphtheria Vaccination: Yes Hx Influenza Vaccination: Yes Hx Pneumococcal Vaccination: Yes - Social History Hx Tobacco Use: No Hx Chewing Tobacco Use: No Hx Alcohol Use: No Hx Substance Use: No Hx Substance Use Treatment: No Hx Depression: No Hx Physical Abuse: No Hx Emotional Abuse: No Hx Suspected Abuse: No - Female History Patient : No Family Medical History - Family History Father Family History: Unknown Living Status: Hx Family Asthma: No Hx Family Congestive Heart Failure: No Hx Family Hypertension: Yes Hx Cardiac Disease: Yes Physical Exam - Physical Exam General Appearance: Alert, Comfortable, No apparent distress Eyes, Ears, Nose, Throat Exam: normal ENT inspection Neck: normal inspection Respiratory: chest non-tender, lungs clear, normal breath sounds Cardiovascular/Chest: normal peripheral pulses, regular rate, rhythm, no murmur Peripheral Pulses: radial,right: 2+, radial,left: 2+, dorsalis pedis,right: 1+, dorsalis pedis,left: 1+ Gastrointestinal/Abdominal: soft, no organomegaly Extremity: no pedal edema, no calf tenderness Neurologic: alert, oriented x 3 Skin Exam: normal color, warm/dry Progress - Progress Progress: 02/27/19 19:14 Vital Signs - 8 hr 02/27/19 02/27/19 02/27/19 15:40 16:32 17:40 Temperature 97.9 F 97.9 F Pulse Rate [ 92 H 92 H 82 Pulse Ox] Respiratory 20 20 18 Rate Blood Pressure 169/79 165/90 160/60 [R Arm] O2 Sat by Pulse 92 L 95 92 L Oximetry 02/27/19 18:45 Temperature Pulse Rate [ 97 H Pulse Ox] Respiratory 18 Rate Blood Pressure 148/63 [R Arm] O2 Sat by Pulse 98 Oximetry - Results/Orders Results/Orders: Laboratory Results - last 24 hr 02/27/19 02/27/19 02/27/19 17:00 17:08 17:08 WBC 9.0 RBC 4.30 L Hgb 12.6 L Hct 37.9 L MCV 88.0 MCH 29.3 MCHC 33.3 RDW 16.7 H Plt Count 142 MPV 8.1 Absolute Neuts (auto) 8.00 H Absolute Lymphs (auto) 0.60 L Absolute Monos (auto) 0.20 Absolute Eos (auto) 0.10 Absolute Basos (auto) 0.10 Neutrophils % 89.1 H Lymphocytes % 6.9 L Monocytes % 2.7 Eosinophils % 0.6 L Basophils % 0.7 Sodium 136 Potassium 4.5 Chloride 95 L Carbon Dioxide 28 Anion Gap 17.5 BUN 45 H Creatinine 3.68 H BUN/Creatinine Ratio 12.2 Random Glucose 113 H Serum Osmolality 284.3 Calcium 8.3 L Total Bilirubin 1.1 H AST 18 ALT 13 Alkaline Phosphatase 111 Serum Total Protein 7.9 Albumin 4.0 Globulin 3.9 H Albumin/Globulin Ratio 1.0 L Urine Color Yellow Urine Appearance Clear Urine pH 8.0 H Ur Specific [place] 1.020 Urine Protein 100 H Urine Glucose (UA) Negative Urine Ketones Negative Urine Blood Small H Urine Nitrite Negative Urine Bilirubin Negative Urine Urobilinogen 0.2 Ur Leukocyte Esterase Negative Urine RBC 1-3 Urine WBC 0-1 Ur Epithelial Cells 0 Urine Bacteria 0 - EKG/XRAY/CT XRAY: chest - cardiomegaly no CHF Departure - Departure Clinical Impression: CKD (chronic kidney disease) stage 4, GFR 15-29 ml/min, Diabetes 1.5, managed as type 1 Dyspnea Qualifiers: Dyspnea type: unspecified Qualified Code(s): R06.00 - Dyspnea, unspecified Hypertensive heart disease Qualifiers: Heart failure presence: unspecified whether heart failure present Qualified Code(s): I11.9 - Hypertensive heart disease without heart failure Time of Disposition: 19:35 Disposition: Discharge to Home or Self Care Condition: Fair Departure Forms: ED Discharge - Pt. Copy, Patient Portal Self Enrollment Referrals: MANASA REES MD [Primary Care Provider] - 1-2 Weeks Home Medications: Ambulatory Orders Duloxetine HCl [Cymbalta] 60 mg PO BID #0 05/01/13 Clopidogrel Bisulfate [Plavix] 75 mg PO QD 06/25/15 Furosemide [Lasix] 40 mg PO DAILY #10 tab 06/25/15 Magnesium Oxide 800 mg PO BID 06/25/15 Metoprolol Tartrate [Lopressor] 12.5 mg PO QAM 06/25/15 Nitroglycerin 0.4 mg Tab [Nitrostat] 1 ea SL .Q5M PRN 06/25/15 Tamsulosin [Flomax] 0.4 mg PO QD 06/25/15 Dulaglutide [Trulicity] 0.75 mg SC WKLY 09/22/15 HYDROcodone 10MG/APAP 325MG [[place]el 10/325] 1 tab PO Q6HR PRN 12/23/15 Insulin Glargine [Toujeo Solostar] 60 unit SC DAILY #0 12/24/15 Pregabalin [Lyrica] 75 mg PO BID 03/24/16 Additional Instructions: continue with home O2 at 2-21/2 L/NC and all home medications;Return to Emergency room as needed
[2019-02-27 19:43] VITALS: BP 167/62; O2SAT 96
== END 2019-02-27 19:55 | disposition home or self-care (01) ==
LOC: ER 15:21
DX: R06.02 Shortness of breath (principal); N18.4 Chronic kidney disease, stage 4 (severe); E10.22 Type 1 diabetes mellitus with diabetic chronic kidney disease; I13.0 Hypertensive heart and chronic kidney disease with heart failure and stage 1 through stage 4 chronic kidney disease, or unspecified chronic kidney disease; I50.9 Heart failure, unspecified; J44.9 Chronic obstructive pulmonary disease, unspecified; Z99.81 Dependence on supplemental oxygen; Z95.0 Presence of cardiac pacemaker; Z95.5 Presence of coronary angioplasty implant and graft; Z79.899 Other long term (current) drug therapy; Z79.4 Long term (current) use of insulin; Z88.5 Allergy status to narcotic agent

== ENCOUNTER 2019-03-25 09:20 | Emergency (ER) | payer MEDICARE, OTHER ==
[2019-03-25] MEDS ORDERED: SODIUM CHLORIDE 0.9% 1000ML 1,000 ML IVS ONE (10:32)
--- NOTE | 2019-03-25 10:57 | ED.PDOC ---
History of Present Illness - General Chief Complaint: Neuro Symptoms/Deficits Stated Complaint: hallucination,confusion Time Seen by Provider: 03/25/19 10:31 Source: patient, family Exam Limitations: no limitations - History of Present Illness Initial Comments: Patient presents after waking up with "hallucinations" this morning. They are auditory and visual. He cannot describe them. He has had tremors for about one year that consist of his limbs twitching or extending intermittently. Also has an area of red tenderness in his right axilla for an unknown length of time. He has a history of IDDM. No other complaints. Timing/Duration: intermittent Severity: moderate Improving Factors: nothing Worsening Factors: nothing Associated Symptoms: denies symptoms Allergies/Adverse Reactions: Allergies Morphine Allergy (Verified 12/05/18 15:00) Home Medications: Ambulatory Orders Duloxetine HCl [Cymbalta] 60 mg PO BID #0 05/01/13 Clopidogrel Bisulfate [Plavix] 75 mg PO QD 06/25/15 Furosemide [Lasix] 40 mg PO DAILY #10 tab 06/25/15 Metoprolol Tartrate [Lopressor] 25 mg PO BID 06/25/15 Tamsulosin [Flomax] 0.4 mg PO BEDTIME 06/25/15 Dulaglutide [Trulicity] 0.75 mg SC WKLY 09/22/15 HYDROcodone 10MG/APAP 325MG [[place] 10/325] 1 tab PO Q6HR PRN 12/23/15 Pregabalin [Lyrica] 75 mg PO BEDTIME 03/24/16 Atorvastatin Calcium [Lipitor] 40 mg PO BEDTIME 03/25/19 Insulin Glargine [Toujeo Solostar] 80 unit SC DAILY 03/25/19 Review of Systems - Review of Systems Constitutional: States: no symptoms reported EENTM: States: no symptoms reported Respiratory: States: no symptoms reported Cardiology: States: no symptoms reported Gastrointestinal/Abdominal: States: no symptoms reported Genitourinary: States: no symptoms reported Musculoskeletal: States: see HPI Skin: States: no symptoms reported Neurological: States: see HPI Endocrine: States: no symptoms reported Hematologic/Lymphatic: States: no symptoms reported Past Medical History (General) - Patient Medical History Hx Seizures: No Hx Stroke: No Hx Dementia: No Hx Asthma: No Hx of COPD: Yes Hx Cardiac Disorders: Yes - [place] Hx Congestive Heart Failure: Yes Hx Pacemaker: No Hx Hypertension: Yes Hx Thyroid Disease: No Hx Diabetes: Yes Hx Gastroesophageal Reflux: No Hx Renal Disease: No Hx Cancer: No Hx of HIV: No Hx Hepatitis C: No Hx MRSA: No Surgical History: cholecystectomy - Vaccination History Hx Tetanus, Diphtheria Vaccination: Yes Hx Influenza Vaccination: No Hx Pneumococcal Vaccination: Yes - Social History Hx Tobacco Use: Yes Hx Chewing Tobacco Use: No Hx Alcohol Use: No Hx Substance Use: No Hx Substance Use Treatment: No Hx Depression: No Hx Physical Abuse: No Hx Emotional Abuse: No Hx Suspected Abuse: No - Female History Patient : No Family Medical History - Family History Father Family History: Unknown Living Status: Hx Family Asthma: No Hx Family Congestive Heart Failure: No Hx Family Hypertension: Yes Hx Cardiac Disease: Yes Physical Exam - Physical Exam General Appearance: Alert Eye Exam: bilateral normal Ears, Nose, Throat: normal ENT inspection Neck: non-tender, full range of motion, supple Respiratory: lungs clear, normal breath sounds Cardiovascular/Chest: normal peripheral pulses, regular rate, rhythm, no edema Gastrointestinal/Abdominal: normal bowel sounds, non tender, soft Back Exam: normal inspection, no CVA tenderness Extremity: normal range of motion, non-tender, normal inspection Neurologic: handle turner II-XII nml as tested, no motor/sensory deficits, other - intermittent tremors of upper extremities Skin Exam: other - erythmatic, tender, blanching, raised rash under right axilla. No exudates. Lymphatic: no adenopathy Progress - Progress Progress: 03/25/19 12:49 Laboratory Tests 03/25/19 03/25/19 09:49 09:49 WBC 11.7 H RBC 3.70 L Hgb 11.0 L Hct 33.0 L MCV 89.3 MCH 29.6 MCHC 33.2 RDW 16.6 H Plt Count 184 MPV 8.2 Absolute Neuts (auto) 8.90 H Absolute Lymphs (auto) 1.30 Absolute Monos (auto) 1.30 H Absolute Eos (auto) 0.10 Absolute Basos (auto) 0.10 Neutrophils % 76.3 Lymphocytes % 11.2 L Monocytes % 10.7 H Eosinophils % 1.0 Basophils % 0.8 Sodium 138 Potassium 4.5 Chloride 97 L Carbon Dioxide 30 Anion Gap 15.5 BUN 54 H Creatinine 3.50 H BUN/Creatinine Ratio 15.4 Random Glucose 92 Serum Osmolality 290.1 Calcium 8.5 Total Bilirubin 1.0 AST 15 ALT 12 Alkaline Phosphatase 111 Serum Total Protein 7.8 Albumin 3.9 Globulin 3.9 H Albumin/Globulin Ratio 1.[address] head showed 1.5 to 2 cm area of hypoattenuation in the left parietal lobe. It was there previously but the edema has improved. Question metastasis. Patient transferred to inpatient at [facility] to Dr. Palmer. Departure - Departure Clinical Impression: Tremor, Hallucinations Disposition: Transfer to Hospital Condition: Good Departure Forms: ED Discharge - Pt. Copy, Patient Portal Self Enrollment Diet: other - NPO Activity: as per physical therapy Referrals: MANASA REES MD [Primary Care Provider] - 1-2 Weeks Home Medications: Ambulatory Orders Duloxetine HCl [Cymbalta] 60 mg PO BID #0 05/01/13 Clopidogrel Bisulfate [Plavix] 75 mg PO QD 06/25/15 Furosemide [Lasix] 40 mg PO DAILY #10 tab 06/25/15 Metoprolol Tartrate [Lopressor] 25 mg PO BID 06/25/15 Tamsulosin [Flomax] 0.4 mg PO BEDTIME 06/25/15 Dulaglutide [Trulicity] 0.75 mg SC WKLY 09/22/15 HYDROcodone 10MG/APAP 325MG [[place] 10/325] 1 tab PO Q6HR PRN 12/23/15 Pregabalin [Lyrica] 75 mg PO BEDTIME 03/24/16 Atorvastatin Calcium [Lipitor] 40 mg PO BEDTIME 03/25/19 Insulin Glargine [Toujeo Solostar] 80 unit SC DAILY 03/25/19 Critical Care Note - Critical Care Note Total Time (mins): 60 Transfer to Outside Facility - Transfer Information [facility]
--- NOTE | 2019-03-25 11:58 | CT ---
EXAM DESCRIPTION: CT Head CLINICAL HISTORY: 78 years Male hallucinations, confusion COMPARISON: October 12, 2018. TECHNIQUE: Noncontrast axial scans of the brain were obtained. Sagittal and coronal reformatted images were performed. There are scanning artifacts on mid-level and lower slices and slight positional asymmetry. This exam was performed according to our departmental dose-optimization program, which includes automated exposure control, adjustment of the mA and/or kV according to patient size and/or use of iterative reconstruction technique. FINDINGS: There is no evidence of acute intracranial hemorrhage, extracerebral fluid collection, significant hydrocephalus, midline shift, or major territorial infarction. Ventricular size is in keeping with the patient's age, as is slight prominence of the sylvian fissures and some of the cortical sulci. There is a small area of hypodensity in the region of the head of the right caudate nucleus, consistent with an old lacunar infarct. This has been present previously. Another slightly larger area of hypoattenuation measuring 1.5-2 cm is seen in the left parietal lobe. This is smaller than on the last examination, presumably due to decreased edema. It could represent evolution of a small white matter infarct or possibly reduced edema about a small space-occupying lesion, either a treated small primary neoplasm or metastatic lesion. The possibility of the latter should be apparent by clinical history. There are vascular calcifications at the base of the brain. The bony calvarium appears intact. Questionable minimal posterior right parietal scalp swelling. The paranasal sinuses and mastoid air cells appear clear except for minimal mucosal thickening in the maxillary and sphenoid sinuses and left frontal sinus. IMPRESSION: 1. No evidence of acute intracranial hemorrhage. 2. 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 3. Small hypodense area in the left parietal white matter, consistent with evolution of a small infarct or possibly reduced edema about a space-occupying lesion, if there is a clinical history of such. Please see comments above. Electronically signed by: López Nettles MD 03/25/2019 11:56 AM CDT
[2019-03-25 12:22] VITALS: BP 151/76
[2019-03-25 13:42] VITALS: TEMP 99.9; O2SAT 96
== END 2019-03-25 13:46 | disposition short-term general hospital (02) ==
LOC: ER 09:20
DX: R44.0 Auditory hallucinations (principal); R44.1 Visual hallucinations; R25.1 Tremor, unspecified; J44.9 Chronic obstructive pulmonary disease, unspecified; I25.2 Old myocardial infarction; I50.9 Heart failure, unspecified; I11.0 Hypertensive heart disease with heart failure; E11.9 Type 2 diabetes mellitus without complications; Z79.4 Long term (current) use of insulin; Z79.899 Other long term (current) drug therapy; Z88.5 Allergy status to narcotic agent
CPT/HCPCS: 36415; 70450; 80053; 81001; 85025; J2060; J7030

== ENCOUNTER 2019-04-19 05:23 | Emergency (ER) | payer MEDICARE, OTHER ==
[2019-04-19] MEDS ORDERED: ACETAMINOPHEN 325 MG TAB PO ONE (05:58)
--- NOTE | 2019-04-19 06:06 | ED.PDOC ---
History of Present Illness - History of Present Illness Initial Comments: 78 yo M PMH CAD [place] Stents x 2 HTN DM on Plavix presents to ED c/o chest pain and left leg pain tonight. Chest pain free in ED but h/o left femur fracture and 'brain lesions' per at bedside. Per pt had some jerks this morning causing him to fall out of bed. Pt. and are generally poor historians and patient appears to have fragmented care. Denies chest pain sob at this time. Denies fever chills nausea vomiting diarrhea. Not diaphoretic, reports he is resting poorly denies urinary complaints. Reports only left leg pain at this time, but offers not much more. Follows commands and oriented. No other c/o today. <Amadou Sandoval - Last Filed: 04/19/19 05:59> - General Source: patient, RN notes reviewed, Vital Signs reviewed, family - - History of Present Illness Severity/Quality: moderate, aching Location: substernal Chest Pain Radiation: no radiation Activities at Onset: sleep - Pt was sleeping in bed when he started jerking, per the , and then fell out of bed. Pt was c/o cp. Improving Factors: medication - ntg x1 Worsening Factors: nothing Nitro Today/Relief: 0.4 mg x 1, complete relief Aspirin Treatment Today: unknown Associated Symptoms: denies symptoms <Ming Smith - Last Filed: 04/19/19 09:47> - General Chief Complaint: Chest Pain/[place] Stated Complaint: chest pain, [employer]ING Time Seen by Provider: 04/19/19 05:55 - History of Present Illness Allergies/Adverse Reactions: Allergies Morphine Allergy (Verified 12/05/18 15:00) Home Medications: Ambulatory Orders Duloxetine HCl [Cymbalta] 60 mg PO BID #0 05/01/13 Clopidogrel Bisulfate [Plavix] 75 mg PO QD 06/25/15 Furosemide [Lasix] 40 mg PO DAILY #10 tab 06/25/15 Metoprolol Tartrate [Lopressor] 25 mg PO BID 06/25/15 Tamsulosin [Flomax] 0.4 mg PO BEDTIME 06/25/15 Dulaglutide [Trulicity] 0.75 mg SC WKLY 09/22/15 HYDROcodone 10MG/APAP 325MG [[place] 10/325] 1 tab PO Q6HR PRN 12/23/15 Pregabalin [Lyrica] 75 mg PO BEDTIME 03/24/16 Atorvastatin Calcium [Lipitor] 40 mg PO BEDTIME 03/25/19 Insulin Glargine [Toujeo Solostar] 80 unit SC DAILY 03/25/19 Review of Systems - Review of Systems Constitutional: States: see HPI EENTM: States: see HPI Respiratory: States: see HPI Cardiology: States: chest pain Gastrointestinal/Abdominal: States: see HPI Genitourinary: States: see HPI Musculoskeletal: States: other - left thigh pain Skin: States: other - bruising at insulin injection site Neurological: States: seizure Endocrine: States: no symptoms reported All other Systems: Reviewed and Negative <Amadou Sandoval - Last Filed: 04/19/19 05:59> Past Medical History (General) - Patient Medical History Hx Seizures: No Hx Stroke: No Hx Dementia: No Hx Asthma: No Hx of COPD: Yes Hx Cardiac Disorders: Yes - [place] Hx Congestive Heart Failure: Yes Hx Pacemaker: No Hx Hypertension: Yes Hx Thyroid Disease: No Hx Diabetes: Yes Hx Gastroesophageal Reflux: No Hx Renal Disease: No Hx Cancer: No Hx of HIV: No Hx Hepatitis C: No Hx MRSA: No Surgical History: appendectomy, cholecystectomy - Vaccination History Hx Tetanus, Diphtheria Vaccination: Yes Hx Influenza Vaccination: No Hx Pneumococcal Vaccination: Yes Immunizations Up to Date: Yes - Social History Hx Tobacco Use: Yes Hx Chewing Tobacco Use: No Hx Alcohol Use: No Hx Substance Use: No Hx Substance Use Treatment: No Hx Depression: No Hx Physical Abuse: No Hx Emotional Abuse: No Hx Suspected Abuse: No - Female History Patient : No <Amadou Sandoval - Last Filed: 04/19/19 05:59> Family Medical History - Family History Father Family History: Unknown Living Status: Hx Family Asthma: No Hx Family Congestive Heart Failure: No Hx Family Hypertension: Yes Hx Cardiac Disease: Yes <Amadou Sandoval - Last Filed: 04/19/19 05:59> Physical Exam - Physical Exam General Appearance: Comfortable Eyes, Ears, Nose, Throat Exam: normal ENT inspection Neck: non-tender Respiratory: no respiratory distress Cardiovascular/Chest: regular rate, rhythm Gastrointestinal/Abdominal: non tender, soft, hernia Extremity: normal range of motion Neurologic: normal mood/affect Skin Exam: normal color <Amadou Sandoval - Last Filed: 04/19/19 05:59> - Physical Exam Neck: full range of motion Respiratory: chest non-tender, normal breath sounds Cardiovascular/Chest: no murmur Neurologic: oriented x 3 Skin Exam: warm/dry Lymphatic: no adenopathy <Ming Smith - Last Filed: 04/19/19 09:47> Progress - Progress Progress: 04/19/19 06:08 A/P-Chest Pain, Fall 1.fall precautions IV cbc cmp trop cxr xr l femur pelvis urinalysis ct head ct c spine tylenol reassess, signed out to oncoming physician <Amadou Sandoval - Last Filed: 04/19/19 05:59> - Progress Progress: 04/19/19 09:41 Pt w/o cp. Negative w/u. Plan d/c home. D/w /pt and they voice understanding and agreement with poc. Ming Smith M.D. #[id number] - Results/Orders Results/Orders: 04/19/19 05:56 Fall Prevention ONCE IV:Start .ONCE 04/19/19 06:00 EKG STAT Laboratory Results - last 24 hr 04/19/19 04/19/19 04/19/19 06:00 06:00 06:00 WBC 7.3 RBC 3.08 L Hgb 8.9 L Hct 27.5 L MCV 89.2 MCH 28.9 MCHC 32.4 L RDW 16.9 H Plt Count 148 MPV 9.4 Absolute Neuts (auto) 4.30 Absolute Lymphs (auto) 1.50 Absolute Monos (auto) 0.60 Absolute Eos (auto) 0.90 H Absolute Basos (auto) 0.10 Neutrophils % 57.9 Lymphocytes % 20.8 Monocytes % 8.4 Eosinophils % 12.1 H Basophils % 0.8 Sodium 139 Potassium 4.9 Chloride 97 L Carbon Dioxide 29 Anion Gap 17.9 BUN 72 H Creatinine 3.67 H BUN/Creatinine Ratio 19.6 Random Glucose 68 L Serum Osmolality 297.0 H Calcium 8.1 L Total Bilirubin 0.6 AST 18 ALT 13 Alkaline Phosphatase 108 Troponin I 0.02 Serum Total Protein 7.1 Albumin 3.5 Globulin 3.6 H Albumin/Globulin Ratio 1.0 L Urine Color Urine Appearance Urine pH Ur Specific [place] Urine Protein Urine Glucose (UA) Urine Ketones Urine Blood Urine Nitrite Urine Bilirubin Urine Urobilinogen Ur Leukocyte Esterase Urine RBC Urine WBC Ur Epithelial Cells Urine Bacteria 04/19/19 04/19/19 07:15 09:00 WBC RBC Hgb Hct MCV MCH MCHC RDW Plt Count MPV Absolute Neuts (auto) Absolute Lymphs (auto) Absolute Monos (auto) Absolute Eos (auto) Absolute Basos (auto) Neutrophils % Lymphocytes % Monocytes % Eosinophils % Basophils % Sodium Potassium Chloride Carbon Dioxide Anion Gap BUN Creatinine BUN/Creatinine Ratio Random Glucose Serum Osmolality Calcium Total Bilirubin AST ALT Alkaline Phosphatase Troponin I 0.02 Serum Total Protein Albumin Globulin Albumin/Globulin Ratio Urine Color Yellow Urine Appearance Clear Urine pH 7.5 Ur Specific [place] 1.015 Urine Protein 100 H Urine Glucose (UA) Negative Urine Ketones Negative Urine Blood Negative Urine Nitrite Negative Urine Bilirubin Negative Urine Urobilinogen 0.2 Ur Leukocyte Esterase Negative Urine RBC 0 Urine WBC 0-1 Ur Epithelial Cells 0 Urine Bacteria 0 - EKG/XRAY/CT Comments: NSR @ 62 bpm, LAD, RBBB, LVH, abnormal ekg. No acute ischemia <Ming Smith - Last Filed: 04/19/19 09:47> Departure <Amadou Sandoval - Last Filed: 04/19/19 05:59> - Departure Time of Disposition: 09:46 <Ming Smith - Last Filed: 04/19/19 09:47> - Departure Clinical Impression: Chest pain Qualifiers: Chest pain type: unspecified Qualified Code(s): R07.9 - Chest pain, unspecified Chronic kidney disease (CKD) Qualifiers: Chronic kidney disease stage: unspecified stage Qualified Code(s): N18.9 - Chronic kidney disease, unspecified Abrasion of left arm Qualifiers: Encounter type: initial encounter Qualified Code(s): S40.812A - Abrasion of left upper arm, initial encounter Disposition: Discharge to Home or Self Care Condition: Good Departure Forms: ED Discharge - Pt. Copy, Patient Portal Self Enrollment Instructions: DI for Chest Pain Referrals: MANASA REES MD [Primary Care Provider] - 1-2 Weeks Home Medications: Ambulatory Orders Duloxetine HCl [Cymbalta] 60 mg PO BID #0 05/01/13 Clopidogrel Bisulfate [Plavix] 75 mg PO QD 06/25/15 Furosemide [Lasix] 40 mg PO DAILY #10 tab 06/25/15 Metoprolol Tartrate [Lopressor] 25 mg PO BID 06/25/15 Tamsulosin [Flomax] 0.4 mg PO BEDTIME 06/25/15 Dulaglutide [Trulicity] 0.75 mg SC WKLY 09/22/15 HYDROcodone 10MG/APAP 325MG [[place] 10/325] 1 tab PO Q6HR PRN 12/23/15 Pregabalin [Lyrica] 75 mg PO BEDTIME 03/24/16 Atorvastatin Calcium [Lipitor] 40 mg PO BEDTIME 03/25/19 Insulin Glargine [Toujeo Solostar] 80 unit SC DAILY 03/25/19 Addendum entered and electronically signed by Ming Smith MD 04/19/19 10:23: ED Addendum - ED Addendum Addendum: Pt d/c home Departure - Departure Clinical Impression: Chest pain Qualifiers: Chest pain type: unspecified Qualified Code(s): R07.9 - Chest pain, unspecified Chronic kidney disease (CKD) Qualifiers: Chronic kidney disease stage: unspecified stage Qualified Code(s): N18.9 - Chronic kidney disease, unspecified Abrasion of left arm Qualifiers: Encounter type: initial encounter Qualified Code(s): S40.812A - Abrasion of left upper arm, initial encounter Disposition: Discharge to Home or Self Care Condition: Good Departure Forms: ED Discharge - Pt. Copy, Patient Portal Self Enrollment Instructions: DI for Chest Pain Referrals: MANASA REES MD [Primary Care Provider] - 1-2 Weeks Home Medications: Ambulatory Orders Duloxetine HCl [Cymbalta] 60 mg PO BID #0 05/01/13 Clopidogrel Bisulfate [Plavix] 75 mg PO QD 06/25/15 Furosemide [Lasix] 40 mg PO DAILY #10 tab 06/25/15 Metoprolol Tartrate [Lopressor] 25 mg PO BID 06/25/15 Tamsulosin [Flomax] 0.4 mg PO BEDTIME 06/25/15 Dulaglutide [Trulicity] 0.75 mg SC WKLY 09/22/15 HYDROcodone 10MG/APAP 325MG [[place] 10/325] 1 tab PO Q6HR PRN 12/23/15 Pregabalin [Lyrica] 75 mg PO BEDTIME 03/24/16 Atorvastatin Calcium [Lipitor] 40 mg PO BEDTIME 03/25/19 Insulin Glargine [Toujeo Solostar] 80 unit SC DAILY 03/25/19 Addendum entered and electronically signed by Ming Smith MD 04/19/19 10:29: Departure - Departure Clinical Impression: Chest pain Qualifiers: Chest pain type: unspecified Qualified Code(s): R07.9 - Chest pain, unspecified Chronic kidney disease (CKD) Qualifiers: Chronic kidney disease stage: unspecified stage Qualified Code(s): N18.9 - Chronic kidney disease, unspecified Abrasion of left arm Qualifiers: Encounter type: initial encounter Qualified Code(s): S40.812A - Abrasion of left upper arm, initial encounter Disposition: Discharge to Home or Self Care Condition: Good Departure Forms: ED Discharge - Pt. Copy, Patient Portal Self Enrollment Instructions: DI for Chest Pain Referrals: MANASA REES MD [Primary Care Provider] - 1-2 Weeks Home Medications: Ambulatory Orders Duloxetine HCl [Cymbalta] 60 mg PO BID #0 05/01/13 Clopidogrel Bisulfate [Plavix] 75 mg PO QD 06/25/15 Furosemide [Lasix] 40 mg PO DAILY #10 tab 06/25/15 Metoprolol Tartrate [Lopressor] 25 mg PO BID 06/25/15 Tamsulosin [Flomax] 0.4 mg PO BEDTIME 06/25/15 Dulaglutide [Trulicity] 0.75 mg SC WKLY 09/22/15 HYDROcodone 10MG/APAP 325MG [[place] 10/325] 1 tab PO Q6HR PRN 12/23/15 Pregabalin [Lyrica] 75 mg PO BEDTIME 03/24/16 Atorvastatin Calcium [Lipitor] 40 mg PO BEDTIME 03/25/19 Insulin Glargine [Toujeo Solostar] 80 unit SC DAILY 03/25/19
--- NOTE | 2019-04-19 06:54 | RAD ---
PROCEDURE: XR Left Femur, 2 Views CLINICAL INDICATION: The patient is 78 years old and is Male; fall h/o fracture MAIN TECHNIQUE: Frontal and lateral views of the left femur. COMPARISON: Prior study from 08/17/2018. Prior knee x-ray from 09/16/2018 FINDINGS: BONES/JOINTS: In the interim, there has been placement of a long plate with interlocking screws transfixing a distal femoral comminuted fracture which appears to be subacute and healing. The long plate is not apposed against the bony interface. Femoral head is well seated in its respective acetabulum. SOFT TISSUES: Unremarkable.No radiopaque foreign body. No significant soft tissue swelling noted. OTHER FINDINGS: There is an old proximal 2nd screw tract. IMPRESSION: 1. In the interim, there has been placement of a long plate with interlocking screws transfixing a distal femoral comminuted fracture which appears to be subacute and healing. 2. The long plate is not apposed against the bony interface. Electronically signed by: Rian Fung MD 04/19/2019 6:52 AM CDT
--- NOTE | 2019-04-19 06:57 | CT ---
PROCEDURE: CT Cervical Spine Without Intravenous Contrast CLINICAL INDICATION: The patient is 78 years old and is Male; fall MAIN TECHNIQUE: Axial computed tomography images of the cervical spine without intravenous contrast. Sagittal and coronal reformatted images were created and reviewed. This CT exam was performed using one or more of the following dose reduction techniques: automated exposure control, adjustment of the mA and/or kV according to patient size, and/or use of iterative reconstruction technique. COMPARISON: No relevant prior studies available. FINDINGS: VERTEBRAE: No fracture identified in the cervical spine. There is multilevel cervical spondylosis and discogenic degenerative change. The lateral masses of C1 are normal with respect to C2. There is grade 1 anterolisthesis of C4 on C5. It appears to be degenerative in nature. There is minimal anterolisthesis of C6 on C7. There is minimal anterolisthesis of C7 on T1. These areas also appear to be degenerative in nature. The dens is intact. DISCS/SPINAL CANAL/NEURAL FORAMINA: Cervical straightening is present, which may be due to degenerative changes, cervical collar placement, positioning, muscular spasm or ligamentous injury. There is degenerative zygoapophyseal and uncovertebral hypertrophy at multiple levels. There is marked disc space narrowing at C5-C6 with posterior osteophytosis. OTHER BONES/JOINTS: The visualized skull base is without fracture. SOFT TISSUES: No prevertebral soft tissue hematoma identified. MASTOID AIR CELLS: The inferior mastoid air cells are clear. LUNG APICES: The lung apices are clear. IMPRESSION: No fracture identified in the cervical spine. Multilevel spondylolisthesis appears to be degenerative in nature. Spondylotic changes and degenerative changes as noted. Electronically signed by: Rian Fung MD 04/19/2019 6:55 AM CDT
--- NOTE | 2019-04-19 07:04 | CT ---
PROCEDURE: CT Head Without Intravenous Contrast CLINICAL INDICATION: The patient is 78 years old and is Male; fall MAIN TECHNIQUE: Axial computed tomography images of the head/brain without intravenous contrast. Sagittal and coronal reformatted images were created and reviewed. This CT exam was performed using one or more of the following dose reduction techniques: automated exposure control, adjustment of the mA and/or kV according to patient size, and/or use of iterative reconstruction technique. COMPARISON: Prior study from 03/25/2019 FINDINGS: Artifacts: The study is mildly compromised by image degradation from motion artifact.. BRAIN: There are mild stable areas of hypodensity in the periventricular white matter, extending into the centrum semiovale and ellis radiata bilaterally, which are felt to represent the sequela of small vessel ischemic disease (microangiopathy). Early infarcts within the first 12 hours may not be visible on noncontrast CT. The greer/white matter differentiation is intact. NO intra-or extra-axial fluid collections are seen. There is a stable old focal region of hypodensity in the LEFT posterior parietal white matter on image 42. It is not typical for infarction. Etiology is unknown. There is stable encephalomalacia in the RIGHT occipital lobe from prior infarct. There is an old lacunar infarct in the head of the RIGHT caudate nucleus. No hemorrhage. MIDLINE SHIFT: There is NO midline shift. VENTRICLES: There is mild global atrophy with prominence of the ventricles, sulci and basilar cisterns. BONES/JOINTS: There is hyperostosis frontalis interna. No acute fracture. SOFT TISSUES: The soft tissues of the scalp are unremarkable. There is an area of stable scarring in the high RIGHT posterior parietal scalp. VASCULATURE: Intracranial vascular calcifications are noted. SINUSES: The visualized paranasal sinuses are clear. MASTOID AIR CELLS: Unremarkable as visualized. No mastoid effusion. ORBITS: There has been bilateral cataract surgery. IMPRESSION: No acute intracranial abnormality is identified. Electronically signed by: Rian Fung MD 04/19/2019 7:03 AM CDT
--- NOTE | 2019-04-19 07:06 | RAD ---
PROCEDURE: XR Chest, 1 View CLINICAL INDICATION: The patient is 78 years old and is Male; pain MAIN TECHNIQUE: Frontal view of the chest. COMPARISON: Prior study from 02/27/2019 FINDINGS: LIMITATIONS: The study is compromised by patient body habitus. The patient's chin overlies the lung apices causing partial obscuration. LUNGS: There are mild diffusely prominent interstitial markings. This could be related to interstitial edema. No focal pulmonary consolidation. PLEURAL SPACE: There is NO pneumothorax. There are no pleural effusions noted. HEART: The heart size is enlarged. MEDIASTINUM: The mediastinal contour is unremarkable. BONES/JOINTS: No acute abnormality. TUBES, LINES AND DEVICES: There are electrocardiogram leads present. IMPRESSION: There are mild diffusely prominent interstitial markings. This could be related to interstitial edema. Electronically signed by: Rian Fung MD 04/19/2019 7:04 AM CDT
--- NOTE | 2019-04-19 07:09 | RAD ---
PROCEDURE: XR Pelvis, 1 or 2 Views CLINICAL INDICATION: The patient is 78 years old and is Male; fall MAIN TECHNIQUE: Frontal view of the pelvis. COMPARISON: Prior study from 05/12/2013 and 08/17/2018. FINDINGS: BONES/JOINTS: There is NO fracture or dislocation the pelvis. The sacral neural arches are intact. The sacroiliac joints are unremarkable. Both femoral heads are well-seated in their respective acetabula. There are postsurgical changes in the lower lumbar spine. Bone mineral density is normal. The pubic symphysis is intact. There is a total RIGHT hip arthroplasty in place. SOFT TISSUES: Unremarkable. TUBES, LINES AND DEVICES: Hardware is noted over the RIGHT lower quadrant. This is probably a spinal stimulator. OTHER FINDINGS: The pelvic brim is smooth. IMPRESSION: No acute findings. No change from the prior studies. Electronically signed by: Rian Fung MD 04/19/2019 7:08 AM CDT
[2019-04-19 10:57] VITALS: BP 161/67; TEMP 96; O2SAT 99
== END 2019-04-19 10:33 | disposition home or self-care (01) ==
LOC: ER 05:23
DX: R07.9 Chest pain, unspecified (principal); N18.9 Chronic kidney disease, unspecified; S40.812A Abrasion of left upper arm, initial encounter; M79.605 Pain in left leg; I45.10 Unspecified right bundle-branch block; I25.10 Atherosclerotic heart disease of native coronary artery without angina pectoris; I25.2 Old myocardial infarction; E11.22 Type 2 diabetes mellitus with diabetic chronic kidney disease; I13.0 Hypertensive heart and chronic kidney disease with heart failure and stage 1 through stage 4 chronic kidney disease, or unspecified chronic kidney disease; I50.9 Heart failure, unspecified; J44.9 Chronic obstructive pulmonary disease, unspecified; Z79.02 Long term (current) use of antithrombotics/antiplatelets; Z95.5 Presence of coronary angioplasty implant and graft; Z87.81 Personal history of (healed) traumatic fracture; W06.XXXA Fall from bed, initial encounter; Y92.9 Unspecified place or not applicable; Z87.891 Personal history of nicotine dependence

== ENCOUNTER 2019-04-22 09:58 | Emergency (ER) | payer MEDICARE, OTHER ==
[2019-04-22] MEDS ORDERED: ASPIRIN (CHEWABLE) 81 MG TAB PO ONE (10:12)
[2019-04-22] MEDS ORDERED: FUROSEMIDE INJ 40 MG/4 ML VIAL IV ONE (10:12)
[2019-04-22] MEDS ORDERED: PIPERACILLIN/TAZOBACTAM 3.375 GM in SODIUM CHLORIDE 0.9% 100ML 100 ML IVPB ONE (10:12)
[2019-04-22] MEDS ORDERED: VANCOMYCIN HCL INJ 1,000 MG in SODIUM CHLORIDE 0.9% 250ML 250 ML IVPB ONE (10:12)
[2019-04-22] MEDS ORDERED: DEXAMETHASONE INJ 10 MG/ML VIAL IV ONE (10:17)
[2019-04-22] MEDS ORDERED: IPRATROPIUM/ALBUTEROL 3 ML VIAL NEB ONE (10:17)
[2019-04-22] MEDS ORDERED: PIPERACILLIN/TAZOBACTAM 3.375 GM VIAL IVPB ONE (10:22)
[2019-04-22] MEDS ORDERED: SODIUM CHLORIDE 0.9% 100ML 100 ML IVPB ONE ×2 (10:22→10:30)
--- NOTE | 2019-04-22 10:22 | ED.PDOC ---
History of Present Illness - General Chief Complaint: Respiratory Problem Stated Complaint: shortness of breath Time Seen by Provider: 04/22/19 10:00 - History of Present Illness Initial Comments: 78 yo M PMH COPD CT with Stents x 2 on Plavix presents to ED by EMS after call was made to home for complaint of tremors vs frequent jerks today. On arrival EMS found patient in acute respiratory distress hypoxic to 76% with signs of fluid overload at which point he was placed on BiPap and rushed to ED. Pt. on BiPap is ill appearing and tired appearing but oxygen saturation 96%. at bedside, pt was seen and examined by MD for similar complaints on Wednesday. PMD is Dr. De Souza. Pt. denies fever chills nausea vomiting diarrhea chest pain but admits sob no h/o diaphoresis. Reports appetite and rest are decreased by these symptoms. No change in bowel or bladder. Denies drinking or smoking admits FH HTN DM. No other c/o today. Allergies/Adverse Reactions: Allergies Morphine Allergy (Verified 12/05/18 15:00) Home Medications: Ambulatory Orders Duloxetine HCl [Cymbalta] 60 mg PO BID #0 05/01/13 Clopidogrel Bisulfate [Plavix] 75 mg PO QD 06/25/15 Furosemide [Lasix] 40 mg PO DAILY #10 tab 06/25/15 Metoprolol Tartrate [Lopressor] 25 mg PO BID 06/25/15 Tamsulosin [Flomax] 0.4 mg PO BEDTIME 06/25/15 Dulaglutide [Trulicity] 0.75 mg SC WKLY 09/22/15 HYDROcodone 10MG/APAP 325MG [[place] 10/325] 1 tab PO Q6HR PRN 12/23/15 Pregabalin [Lyrica] 75 mg PO BEDTIME 03/24/16 Atorvastatin Calcium [Lipitor] 40 mg PO BEDTIME 03/25/19 Insulin Glargine [Toujeo Solostar] 80 unit SC DAILY 03/25/19 ALPRAZolam [Xanax] 0.5 mg PO PRN 04/22/19 Diphenhydramine HCl 50 mg PO BID 04/22/19 Magnesium [Chelated Magnesium] 200 mg PO BID 04/22/19 Review of Systems - Review of Systems Constitutional: States: see HPI EENTM: States: see HPI Respiratory: States: short of breath Cardiology: States: see HPI Gastrointestinal/Abdominal: States: see HPI Genitourinary: States: see HPI Musculoskeletal: States: see HPI Skin: States: see HPI Neurological: States: tremors Endocrine: States: see HPI Hematologic/Lymphatic: States: see HPI All other Systems: Reviewed and Negative Past Medical History (General) - Patient Medical History Hx Seizures: No Hx Stroke: No Hx Dementia: Yes Hx Asthma: No Hx of COPD: Yes Hx Cardiac Disorders: Yes - CT Hx Congestive Heart Failure: Yes Hx Pacemaker: No Hx Hypertension: Yes Hx Thyroid Disease: No Hx Diabetes: Yes Hx Gastroesophageal Reflux: No Hx Renal Disease: No Hx Cancer: No Hx of HIV: No Hx Hepatitis C: No Hx MRSA: No Surgical History: cholecystectomy - Vaccination History Hx Tetanus, Diphtheria Vaccination: Yes Hx Influenza Vaccination: No Hx Pneumococcal Vaccination: Yes - Social History Hx Tobacco Use: Yes Hx Chewing Tobacco Use: No Hx Alcohol Use: No Hx Substance Use: No Hx Substance Use Treatment: No Hx Depression: No Hx Physical Abuse: No Hx Emotional Abuse: No Hx Suspected Abuse: No - Female History Patient : No Family Medical History - Family History Father Family History: Unknown Living Status: Hx Family Asthma: No Hx Family Congestive Heart Failure: No Hx Family Hypertension: Yes Hx Cardiac Disease: Yes Physical Exam - Physical Exam General Appearance: Ill Appearing Eye Exam: bilateral normal ENT Exam: normal ENT inspection Neck: non-tender, full range of motion Respiratory: rhonchi, wheezing Cardiovascular/Chest: bradycardia Gastrointestinal/Abdominal: non tender, soft Extremity: normal range of motion Neurologic: no motor/sensory deficits Skin Exam: other - ecchymosis on belly from insulin administration Progress - Progress Progress: 04/22/19 10:25 A/P-COPD Exacerbation, Hypoxia, Respiratory Distress, Hypercapnea 1.iv decadron duoneb telemetry pulse ox abg cbc cmp trop bnp cxr blood cultures zosyn vancomycin lasix Admission Monitored Setting EKG-non specific TW changes No STEMI Sinus Bradycardia RBBB 04/22/19 11:50 CXR reveals cardiomegaly, grossly unchanged Will repeat ABG and Trop, likely ADMIT 04/22/19 10:10 IV:Start .ONCE Chest,1 View [RAD] Stat URINALYSIS Stat 04/22/19 10:12 Telemetry Q4H Vancomycin HCl Inj 1,000 mg Sodium Chloride 0.9% 250Ml [NS 250ml] 250 ml IVPB ONCE 04/22/19 10:15 EKG STAT 04/22/19 10:35 BLOOD CULTURE Stat 04/22/19 11:46 TROPONIN-I Stat Arterial Blood Gas Stat Laboratory Results - last 24 hr 04/22/19 04/22/19 04/22/19 10:00 10:35 10:35 WBC 6.8 RBC 2.69 L Hgb 7.8 L* Hct 24.2 L MCV 89.9 MCH 29.1 MCHC 32.4 L RDW 17.1 H Plt Count 142 MPV 9.1 Absolute Neuts (auto) 4.30 Absolute Lymphs (auto) 0.90 L Absolute Monos (auto) 0.70 Absolute Eos (auto) 0.90 H Absolute Basos (auto) 0.10 Neutrophils % 62.4 Lymphocytes % 12.9 L Monocytes % 9.7 H Eosinophils % 13.9 H Basophils % 1.1 pCO2 69 H pO2 67 L HCO3 36.2 ABG pH 7.340 L ABG O2 Saturation 94.2 L ABG Base Excess 9.4 ABG Deoxyhemoglobin 5.6 H Oxyhemoglobin % 91.5 L Carboxyhemoglobin % 0.5 Methemoglobin % Sat 2.4 H Calc Total Hemoglobin 8.4 L Sodium 138 Potassium 5.1 H Chloride 96 L Carbon Dioxide 32 H Anion Gap 15.1 BUN 69 H Creatinine 3.60 H BUN/Creatinine Ratio 19.2 Random Glucose 113 H Serum Osmolality 296.6 H Lactic Acid Calcium 7.4 L Total Bilirubin 0.6 AST 19 ALT 13 Alkaline Phosphatase 104 Troponin I B-Natriuretic Peptide Serum Total Protein 6.5 Albumin 3.2 Globulin 3.3 Albumin/Globulin Ratio 1.0 L 04/22/19 04/22/19 04/22/19 10:35 10:35 10:35 WBC RBC Hgb Hct MCV MCH MCHC RDW Plt Count MPV Absolute Neuts (auto) Absolute Lymphs (auto) Absolute Monos (auto) Absolute Eos (auto) Absolute Basos (auto) Neutrophils % Lymphocytes % Monocytes % Eosinophils % Basophils % pCO2 pO2 HCO3 ABG pH ABG O2 Saturation ABG Base Excess ABG Deoxyhemoglobin Oxyhemoglobin % Carboxyhemoglobin % Methemoglobin % Sat Calc Total Hemoglobin Sodium Potassium Chloride Carbon Dioxide Anion Gap BUN Creatinine BUN/Creatinine Ratio Random Glucose Serum Osmolality Lactic Acid 0.8 Calcium Total Bilirubin AST ALT Alkaline Phosphatase Troponin I 0.02 B-Natriuretic Peptide 485.0 H* Serum Total Protein Albumin Globulin Albumin/Globulin Ratio Will add symptomatic Anemia to diagnosis 04/22/19 12:[address] more alert and responsive repeat ABG still shows hypercarbia respiratory will adjust vent settings in attempt to improve hypercarbia and gas exchange. Pt. denies blood in stool stool occult blood sent to lab rectal exam shows good tone brown stool no blood 04/22/19 15:54 Laboratory Tests 04/22/19 04/22/19 04/22/19 10:00 10:35 10:35 WBC 6.8 RBC 2.69 L Hgb 7.8 L* Hct 24.2 L MCV 89.9 MCH 29.1 MCHC 32.4 L RDW 17.1 H Plt Count 142 MPV 9.1 Absolute Neuts (auto) 4.30 Absolute Lymphs (auto) 0.90 L Absolute Monos (auto) 0.70 Absolute Eos (auto) 0.90 H Absolute Basos (auto) 0.10 Neutrophils % 62.4 Lymphocytes % 12.9 L Monocytes % 9.7 H Eosinophils % 13.9 H Basophils % 1.1 pCO2 69 H pO2 67 L HCO3 36.2 ABG pH 7.340 L ABG O2 Saturation 94.2 L ABG Base Excess 9.4 ABG Deoxyhemoglobin 5.6 H Oxyhemoglobin % 91.5 L Carboxyhemoglobin % 0.5 Methemoglobin % Sat 2.4 H Calc Total Hemoglobin 8.4 L Sodium 138 Potassium 5.1 H Chloride 96 L Carbon Dioxide 32 H Anion Gap 15.1 BUN 69 H Creatinine 3.60 H BUN/Creatinine Ratio 19.2 Random Glucose 113 H Serum Osmolality 296.6 H Lactic Acid Calcium 7.4 L Total Bilirubin 0.6 AST 19 ALT 13 Alkaline Phosphatase 104 Troponin I B-Natriuretic Peptide Serum Total Protein 6.5 Albumin 3.2 Globulin 3.3 Albumin/Globulin Ratio 1.0 L Urine Color Urine Appearance Urine pH Ur Specific [place] Urine Protein Urine Glucose (UA) Urine Ketones Urine Blood Urine Nitrite Urine Bilirubin Urine Urobilinogen Ur Leukocyte Esterase Urine RBC Urine WBC Ur Epithelial Cells Urine Bacteria Stool Occult Blood 04/22/19 04/22/19 04/22/19 10:35 10:35 10:35 WBC RBC Hgb Hct MCV MCH MCHC RDW Plt Count MPV Absolute Neuts (auto) Absolute Lymphs (auto) Absolute Monos (auto) Absolute Eos (auto) Absolute Basos (auto) Neutrophils % Lymphocytes % Monocytes % Eosinophils % Basophils % pCO2 pO2 HCO3 ABG pH ABG O2 Saturation ABG Base Excess ABG Deoxyhemoglobin Oxyhemoglobin % Carboxyhemoglobin % Methemoglobin % Sat Calc Total Hemoglobin Sodium Potassium Chloride Carbon Dioxide Anion Gap BUN Creatinine BUN/Creatinine Ratio Random Glucose Serum Osmolality Lactic Acid 0.8 Calcium Total Bilirubin AST ALT Alkaline Phosphatase Troponin I 0.02 B-Natriuretic Peptide 485.0 H* Serum Total Protein Albumin Globulin Albumin/Globulin Ratio Urine Color Urine Appearance Urine pH Ur Specific [place] Urine Protein Urine Glucose (UA) Urine Ketones Urine Blood Urine Nitrite Urine Bilirubin Urine Urobilinogen Ur Leukocyte Esterase Urine RBC Urine WBC Ur Epithelial Cells Urine Bacteria Stool Occult Blood 04/22/19 04/22/19 04/22/19 11:46 12:01 12:26 WBC RBC Hgb Hct MCV MCH MCHC RDW Plt Count MPV Absolute Neuts (auto) Absolute Lymphs (auto) Absolute Monos (auto) Absolute Eos (auto) Absolute Basos (auto) Neutrophils % Lymphocytes % Monocytes % Eosinophils % Basophils % pCO2 67 H pO2 57 L HCO3 35.6 ABG pH 7.350 ABG O2 Saturation 89.5 L ABG Base Excess 9.1 ABG Deoxyhemoglobin 10.2 H Oxyhemoglobin % 86.4 L Carboxyhemoglobin % 0.2 L Methemoglobin % Sat 3.2 H Calc Total Hemoglobin 7.9 L Sodium Potassium Chloride Carbon Dioxide Anion Gap BUN Creatinine BUN/Creatinine Ratio Random Glucose Serum Osmolality Lactic Acid Calcium Total Bilirubin AST ALT Alkaline Phosphatase Troponin I < 0.02 B-Natriuretic Peptide Serum Total Protein Albumin Globulin Albumin/Globulin Ratio Urine Color Yellow Urine Appearance Clear Urine pH 7.0 Ur Specific [place] 1.020 Urine Protein 100 H Urine Glucose (UA) Negative Urine Ketones Negative Urine Blood Small H Urine Nitrite Negative Urine Bilirubin Negative Urine Urobilinogen 0.2 Ur Leukocyte Esterase Negative Urine RBC 0-1 Urine WBC 0 Ur Epithelial Cells 0 Urine Bacteria 0 Stool Occult Blood 04/22/19 12:26 WBC RBC Hgb Hct MCV MCH MCHC RDW Plt Count MPV Absolute Neuts (auto) Absolute Lymphs (auto) Absolute Monos (auto) Absolute Eos (auto) Absolute Basos (auto) Neutrophils % Lymphocytes % Monocytes % Eosinophils % Basophils % pCO2 pO2 HCO3 ABG pH ABG O2 Saturation ABG Base Excess ABG Deoxyhemoglobin Oxyhemoglobin % Carboxyhemoglobin % Methemoglobin % Sat Calc Total Hemoglobin Sodium Potassium Chloride Carbon Dioxide Anion Gap BUN Creatinine BUN/Creatinine Ratio Random Glucose Serum Osmolality Lactic Acid Calcium Total Bilirubin AST ALT Alkaline Phosphatase Troponin I B-Natriuretic Peptide Serum Total Protein Albumin Globulin Albumin/Globulin Ratio Urine Color Urine Appearance Urine pH Ur Specific [place] Urine Protein Urine Glucose (UA) Urine Ketones Urine Blood Urine Nitrite Urine Bilirubin Urine Urobilinogen Ur Leukocyte Esterase Urine RBC Urine WBC Ur Epithelial Cells Urine Bacteria Stool Occult Blood Positive Spoke with Dr. Camarena who accepts pt for admission and is familiar with him will ADMIT Departure - Departure Clinical Impression: COPD with exacerbation, Hypoxia, Respiratory distress, Hypercarbia Time of Disposition: 15:57 Disposition: Discharge to Home or Self Care Departure Forms: ED Discharge - Pt. Copy, Patient Portal Self Enrollment Referrals: MANASA REES MD [Primary Care Provider] - 1-2 Weeks Home Medications: Ambulatory Orders Duloxetine HCl [Cymbalta] 60 mg PO BID #0 05/01/13 Clopidogrel Bisulfate [Plavix] 75 mg PO QD 06/25/15 Furosemide [Lasix] 40 mg PO DAILY #10 tab 06/25/15 Metoprolol Tartrate [Lopressor] 25 mg PO BID 06/25/15 Tamsulosin [Flomax] 0.4 mg PO BEDTIME 06/25/15 Dulaglutide [Trulicity] 0.75 mg SC WKLY 09/22/15 HYDROcodone 10MG/APAP 325MG [[place] 10/325] 1 tab PO Q6HR PRN 12/23/15 Pregabalin [Lyrica] 75 mg PO BEDTIME 03/24/16 Atorvastatin Calcium [Lipitor] 40 mg PO BEDTIME 03/25/19 Insulin Glargine [Toujeo Solostar] 80 unit SC DAILY 03/25/19 ALPRAZolam [Xanax] 0.5 mg PO PRN 04/22/19 Diphenhydramine HCl 50 mg PO BID 04/22/19 Magnesium [Chelated Magnesium] 200 mg PO BID 04/22/19 Decision To Admit - Decistion To Admit Decision to Admit Reason: Admit from ER Decision to Admit Date: 04/22/19 Decision to Admit Time: 15:56
[2019-04-22] MEDS ORDERED: VANCOMYCIN HCL INJ 1,000 MG VIAL IVPB ONE (11:52)
[2019-04-22] MEDS ORDERED: SODIUM CHLORIDE 0.9% 250ML 250 ML ONE (11:52)
[2019-04-22 18:42] VITALS: BP 182/91; TEMP 96.8; O2SAT 100
== END 2019-04-22 18:42 | disposition short-term general hospital (02) ==
LOC: ER 09:58 → MS 16:26 → UNDOADMOB 16:26 → ER 18:42
DX: J44.1 Chronic obstructive pulmonary disease with (acute) exacerbation (principal); R09.02 Hypoxemia; R06.89 Other abnormalities of breathing; R06.03 Acute respiratory distress; R00.1 Bradycardia, unspecified; I25.2 Old myocardial infarction; I45.10 Unspecified right bundle-branch block; F03.90 Unspecified dementia, unspecified severity, without behavioral disturbance, psychotic disturbance, mood disturbance, and anxiety; I50.9 Heart failure, unspecified; I11.0 Hypertensive heart disease with heart failure; E11.9 Type 2 diabetes mellitus without complications; Z87.891 Personal history of nicotine dependence; Z95.5 Presence of coronary angioplasty implant and graft; Z79.02 Long term (current) use of antithrombotics/antiplatelets; Z79.4 Long term (current) use of insulin; Z79.899 Other long term (current) drug therapy; Z88.5 Allergy status to narcotic agent
CPT/HCPCS: 36415; 36600; 71045; 80053; 81001; 82270; 82803; 82805; 83605; 83880; 84484; 85025; 87040; 93005; 94640; 94660; J1100; J1940; J2543; J3370; J7050; J7620

== ENCOUNTER 2019-05-21 00:44 | Emergency (ER) | payer MEDICARE, OTHER ==
--- NOTE | 2019-05-21 00:56 | ED.PDOC ---
History of Present Illness - General Chief Complaint: Respiratory Problem Stated Complaint: Shortness of breath Time Seen by Provider: 05/21/19 00:49 Source: patient, RN notes reviewed, Vital Signs reviewed, EMS notes reviewed, family - History of Present Illness Initial Comments: 78 yo male with PMH of COPD, CKD, HTN, DM, on 2L O2 NC continuously at home presents via EMS for 1 day h/o shortness of breath. States he is always SOB, but has been worse past 12 hours. Had subjective fever at home tonight. Denies cough, sore throat, CP, nausea or abdominal pain. States he does not have neb or inhaler at home. Per EMS, O2 sat was 95% on 2L NC upon their arrival. Pt also reports chronic left hip pain and has had left posterior hip pain tonight. Denies fall, trauma or recent injury. Allergies/Adverse Reactions: Allergies Morphine Allergy (Verified 12/05/18 15:00) Home Medications: Ambulatory Orders Duloxetine HCl [Cymbalta] 60 mg PO BID #0 05/01/13 Clopidogrel Bisulfate [Plavix] 75 mg PO QD 06/25/15 Furosemide [Lasix] 40 mg PO DAILY #10 tab 06/25/15 Metoprolol Tartrate [Lopressor] 25 mg PO BID 06/25/15 Tamsulosin [Flomax] 0.4 mg PO BEDTIME 06/25/15 Dulaglutide [Trulicity] 0.75 mg SC WKLY 09/22/15 HYDROcodone 10MG/APAP 325MG [[place] 10/325] 1 tab PO Q6HR PRN 12/23/15 Pregabalin [Lyrica] 75 mg PO BEDTIME 03/24/16 Atorvastatin Calcium [Lipitor] 40 mg PO BEDTIME 03/25/19 Insulin Glargine [Toujeo Solostar] 80 unit SC DAILY 03/25/19 ALPRAZolam [Xanax] 0.5 mg PO PRN 04/22/19 Diphenhydramine HCl 50 mg PO BID 04/22/19 Magnesium [Chelated Magnesium] 200 mg PO BID 04/22/19 Albuterol Inhaler [Ventolin Hfa Inhaler] 2 puff INH Q6H PRN #1 inh 05/21/19 Prednisone 60 mg PO DAILY 5 Days #15 tab 05/21/19 levoFLOXacin [Levaquin] 500 mg PO DAILY #10 tab 05/21/19 Review of Systems - Review of Systems Constitutional: States: other - subjective fever. Denies: chills, weakness EENTM: Denies: ear pain, nose congestion, throat pain Respiratory: States: short of breath, wheezing. Denies: cough Cardiology: Denies: chest pain, edema, palpitations, syncope Gastrointestinal/Abdominal: Denies: abdominal pain, diarrhea, nausea, vomiting Genitourinary: Denies: dysuria, frequency, hematuria Musculoskeletal: States: other - left hip pain. Denies: back pain Skin: Denies: rash Neurological: Denies: headache, paresthesia, weakness Hematologic/Lymphatic: Denies: easy bleeding, easy bruising All other Systems: Reviewed and Negative Past Medical History (General) - Patient Medical History Hx Seizures: No Hx Stroke: No Hx Dementia: Yes Hx Asthma: No Hx of COPD: Yes Hx Cardiac Disorders: Yes - [place] Hx Congestive Heart Failure: Yes Hx Pacemaker: No Hx Hypertension: Yes Hx Thyroid Disease: No Hx Diabetes: Yes Hx Gastroesophageal Reflux: No Hx Renal Disease: No Hx Cancer: No Hx of HIV: No Hx Hepatitis C: No Hx MRSA: No - Vaccination History Hx Tetanus, Diphtheria Vaccination: Yes Hx Influenza Vaccination: No Hx Pneumococcal Vaccination: Yes - Social History Hx Tobacco Use: Yes Hx Chewing Tobacco Use: No Hx Alcohol Use: No Hx Substance Use: No Hx Substance Use Treatment: No Hx Depression: No Hx Physical Abuse: No Hx Emotional Abuse: No Hx Suspected Abuse: No - Female History Patient : No Family Medical History - Family History Father Family History: Unknown Living Status: Hx Family Asthma: No Hx Family Congestive Heart Failure: No Hx Family Hypertension: Yes Hx Cardiac Disease: Yes Physical Exam - Physical Exam General Appearance: Alert, Comfortable, No apparent distress, Obese Ears, Nose, Throat: normal ENT inspection, normal pharynx Neck: non-tender, full range of motion, supple Respiratory: chest non-tender, other - good air movement with mild expiratory wheezes Cardiovascular/Chest: normal peripheral pulses, regular rate, rhythm, no edema, no JVD Gastrointestinal/Abdominal: non tender, soft, other - ND, no guarding or rigidity Back Exam: normal inspection, no CVA tenderness, no vertebral tenderness Extremity: normal range of motion, no pedal edema, other - Mild TTP left posterior hip and left SI area. Has FROM in all extremities. 5/5 strength in BLE Neurologic: no motor/sensory deficits, alert, normal mood/affect Skin Exam: normal color, warm/dry Progress - Progress Progress: 05/21/19 01:58 EKG NSR, rate 73, RBBB, nonspecific ST abnormality 05/21/19 02:20 Pt presents with SOB that is worse past 12 hours. WBC and lactic normal. CXR s hows cardiomegaly that is unchanged from previous. Troponin and EKG show no sign of ischemia. Baseline creatinine is 3.6 per previous records and is slightly improved today. Pt has no hypoxia or respiratory distress. Will treat with steroids and Levaquin for acute COPD exacerbation. No sign of acute fracture or dislocation to left hip. Will treat COPD exacerbation and close f/u with pcp in 1-2 days for continued evluation. srp given - Results/Orders Results/Orders: 05/21/19 00:51 URINALYSIS Stat 05/21/19 00:52 EKG Assessment ONCE 05/21/19 01:00 EKG .ONCE Laboratory Results - last 24 hr 05/21/19 05/21/19 05/21/19 00:50 00:50 00:50 WBC 6.6 RBC 3.18 L Hgb 9.1 L Hct 27.8 L MCV 87.4 MCH 28.5 MCHC 32.6 L RDW 16.5 H Plt Count 163 MPV 8.0 Absolute Neuts (auto) 4.70 Absolute Lymphs (auto) 0.80 L Absolute Monos (auto) 0.90 H Absolute Eos (auto) 0.20 Absolute Basos (auto) 0.00 Neutrophils % 71.6 Lymphocytes % 12.7 L Monocytes % 12.9 H Eosinophils % 2.3 Basophils % 0.5 Sodium 138 Potassium 5.6 H Chloride 95 L Carbon Dioxide 31 Anion Gap 17.6 BUN 50 H Creatinine 3.17 H BUN/Creatinine Ratio 15.8 Random Glucose 136 H Serum Osmolality 291.1 Lactic Acid Calcium 8.4 Total Bilirubin 1.3 H AST 14 ALT 14 Alkaline Phosphatase 97 Troponin I 0.04 B-Natriuretic Peptide 771.0 H* Serum Total Protein 6.2 L Albumin 3.1 L Globulin 3.1 Albumin/Globulin Ratio 1.0 L 05/21/19 01:08 WBC RBC Hgb Hct MCV MCH MCHC RDW Plt Count MPV Absolute Neuts (auto) Absolute Lymphs (auto) Absolute Monos (auto) Absolute Eos (auto) Absolute Basos (auto) Neutrophils % Lymphocytes % Monocytes % Eosinophils % Basophils % Sodium Potassium Chloride Carbon Dioxide Anion Gap BUN Creatinine BUN/Creatinine Ratio Random Glucose Serum Osmolality Lactic Acid 0.8 Calcium Total Bilirubin AST ALT Alkaline Phosphatase Troponin I B-Natriuretic Peptide Serum Total Protein Albumin Globulin Albumin/Globulin Ratio No acute fracture or dislocation. There are changes of a right hip arthroplasty in satisfactory alignment without evidence of hardware complication. Postsurgical changes involving the left femoral diaphysis are partially visualized. There are postsurgical changes to the lumbar spine. No large soft tissue swelling. IMPRESSION: 1. No acute fracture. CLINICAL HISTORY: short of breath COMPARISON: April 22, 2019. TECHNIQUE: XR CHEST 1 VIEW 05/21/2019 12:50 AM CDT FINDINGS: The heart is enlarged. Lungs are clear without consolidation, atelectasis, mass or edema. There is a small right pleural effusion There is no pneumothorax. There are no acute osseous findings. IMPRESSION: No significant change. Departure - Departure Clinical Impression: Chronic left hip pain Chronic kidney disease (CKD) Qualifiers: Chronic kidney disease stage: unspecified stage Qualified Code(s): N18.9 - Chronic kidney disease, unspecified Disposition: Discharge to Home or Self Care Condition: Good Departure Forms: ED Discharge - Pt. Copy, Patient Portal Self Enrollment Instructions: COPD Including Emphysema (DC) Activity: increase activity as tolerated Referrals: MANASA REES MD [Primary Care Provider] - 1-2 Days Prescriptions: Albuterol Inhaler [Ventolin Hfa Inhaler] 2 puff INH Q6H PRN #1 inh PRN Reason: Wheezing levoFLOXacin [Levaquin] 500 mg PO DAILY #10 tab Prednisone 60 mg PO DAILY 5 Days #15 tab Home Medications: Ambulatory Orders Duloxetine HCl [Cymbalta] 60 mg PO BID #0 05/01/13 Clopidogrel Bisulfate [Plavix] 75 mg PO QD 06/25/15 Furosemide [Lasix] 40 mg PO DAILY #10 tab 06/25/15 Metoprolol Tartrate [Lopressor] 25 mg PO BID 06/25/15 Tamsulosin [Flomax] 0.4 mg PO BEDTIME 06/25/15 Dulaglutide [Trulicity] 0.75 mg SC WKLY 09/22/15 HYDROcodone 10MG/APAP 325MG [[place] 325] 1 tab PO Q6HR PRN 12/23/15 Pregabalin [Lyrica] 75 mg PO BEDTIME 03/24/16 Atorvastatin Calcium [Lipitor] 40 mg PO BEDTIME 03/25/19 Insulin Glargine [Toujeo Solostar] 80 unit SC DAILY 03/25/19 ALPRAZolam [Xanax] 0.5 mg PO PRN 04/22/19 Diphenhydramine HCl 50 mg PO BID 04/22/19 Magnesium [Chelated Magnesium] 200 mg PO BID 04/22/19 Albuterol Inhaler [Ventolin Hfa Inhaler] 2 puff INH Q6H PRN #1 inh 05/21/19 Prednisone 60 mg PO DAILY 5 Days #15 tab 05/21/19 levoFLOXacin [Levaquin] 500 mg PO DAILY #10 tab 05/21/19
[2019-05-21] MEDS: IPRATROPIUM/ALBUTEROL 3 ML VIAL NEB ONE (00:57)
[2019-05-21] MEDS: methylPREDNISolone SODIUM SUC 125 MG/2 ML VIAL IV ONE (01:11)
[2019-05-21] MEDS: IBUPROFEN 200 MG TAB PO ONE (02:08)
--- NOTE | 2019-05-21 02:12 | RAD ---
CLINICAL HISTORY: short of breath COMPARISON: April 22, 2019. TECHNIQUE: XR CHEST 1 VIEW 05/21/2019 12:50 AM CDT FINDINGS: The heart is enlarged. Lungs are clear without consolidation, atelectasis, mass or edema. There is a small right pleural effusion There is no pneumothorax. There are no acute osseous findings. IMPRESSION: No significant change. Electronically signed by: Eliecer Stock MD 05/21/2019 2:11 AM CDT
--- NOTE | 2019-05-21 02:13 | RAD ---
EXAM: AP view(s) of the pelvis. INDICATION: Left hip pain. COMPARISON: None. FINDINGS: No acute fracture or dislocation. There are changes of a right hip arthroplasty in satisfactory alignment without evidence of hardware complication. Postsurgical changes involving the left femoral diaphysis are partially visualized. There are postsurgical changes to the lumbar spine. No large soft tissue swelling. IMPRESSION: 1. No acute fracture. Electronically signed by: Hugh De Santiago MD 05/21/2019 2:12 AM CDT
[2019-05-21 02:43] VITALS: BP 145/81; TEMP 99.1; O2SAT 98
== END 2019-05-21 02:35 | disposition home or self-care (01) ==
LOC: ER 00:44
DX: N18.9 Chronic kidney disease, unspecified (principal); M25.552 Pain in left hip; G89.29 Other chronic pain; R06.02 Shortness of breath; I45.10 Unspecified right bundle-branch block; I50.9 Heart failure, unspecified; I13.0 Hypertensive heart and chronic kidney disease with heart failure and stage 1 through stage 4 chronic kidney disease, or unspecified chronic kidney disease; E11.22 Type 2 diabetes mellitus with diabetic chronic kidney disease; F03.90 Unspecified dementia, unspecified severity, without behavioral disturbance, psychotic disturbance, mood disturbance, and anxiety; J44.9 Chronic obstructive pulmonary disease, unspecified; I25.2 Old myocardial infarction; Z96.641 Presence of right artificial hip joint; Z79.899 Other long term (current) drug therapy; Z79.4 Long term (current) use of insulin; Z88.5 Allergy status to narcotic agent; Z99.81 Dependence on supplemental oxygen
CPT/HCPCS: 71045; 72170; 80053; 83605; 83880; 84484; 85025; J2930; J7620

== ENCOUNTER 2019-05-27 14:13 | Emergency (ER) | payer MEDICARE, OTHER ==
[2019-05-27] MEDS ORDERED: IPRATROPIUM BROMIDE NEBS 0.5 MG/2.5 ML VIAL NEB ONE (14:33)
[2019-05-27] MEDS ORDERED: SODIUM CHL 0.9% 50ML VIAL 3 ML, ALBUTEROL SULFATE NEBS 15 MG NEB ONE ×2 (14:33)
[2019-05-27] MEDS ORDERED: LORazepam 0.5 MG TAB PO ONE (14:35)
--- NOTE | 2019-05-27 14:40 | ED.PDOC ---
History of Present Illness - General Chief Complaint: Respiratory Problem Stated Complaint: Trouble catching his breath Time Seen by Provider: 05/27/19 14:16 - History of Present Illness Initial Comments: Pt is a 78 y.o. M w/ pmh of CAD, COPD, CKD who presents c/o shortness of breath. Says he is always short of breath, believes that his symptoms today are related to anxiety, for which he takes Xanax. Shortness of breath is primarily with exertion. Reports being seen in the ED recently with similar symptoms. He was prescribed prednisone and levaquin for which he has been compliant but denies any significant improvement of symptoms. reports he has not been using albuterol since he has been out of his medications. Denies chest pain, cough, fevers or chills. Allergies/Adverse Reactions: Allergies Morphine Adverse Reaction (Verified 05/27/19 14:40) Other Causes patient to be "Wild" Home Medications: Ambulatory Orders Duloxetine HCl [Cymbalta] 60 mg PO BID #0 05/01/13 Clopidogrel Bisulfate [Plavix] 75 mg PO QD 06/25/15 Furosemide [Lasix] 40 mg PO DAILY #10 tab 06/25/15 Metoprolol Tartrate [Lopressor] 25 mg PO BID 06/25/15 Tamsulosin [Flomax] 0.4 mg PO BEDTIME 06/25/15 Dulaglutide [Trulicity] 0.75 mg SC WKLY 09/22/15 HYDROcodone 10MG/APAP 325MG [[place] 10/325] 1 tab PO Q6HR PRN 12/23/15 Pregabalin [Lyrica] 75 mg PO BEDTIME 03/24/16 Atorvastatin Calcium [Lipitor] 40 mg PO BEDTIME 03/25/19 Insulin Glargine [Toujeo Solostar] 80 unit SC DAILY 03/25/19 ALPRAZolam [Xanax] 0.5 mg PO PRN 04/22/19 Diphenhydramine HCl 50 mg PO BID 04/22/19 Magnesium [Chelated Magnesium] 200 mg PO BID 04/22/19 Albuterol Inhaler [Ventolin Hfa Inhaler] 2 puff INH Q6H PRN #1 inh 05/21/19 levoFLOXacin [Levaquin] 500 mg PO DAILY #10 tab 10/20/19 Albuterol Sulfate Nebs [Proventil Nebs] 3 ml INH Q6HRS PRN #30 vial 05/27/19 Review of Systems - Review of Systems Constitutional: States: no symptoms reported EENTM: States: no symptoms reported Respiratory: States: short of breath. Denies: cough Cardiology: States: edema. Denies: palpitations Gastrointestinal/Abdominal: States: no symptoms reported Genitourinary: States: no symptoms reported Musculoskeletal: States: no symptoms reported Skin: States: no symptoms reported Neurological: States: no symptoms reported Endocrine: States: no symptoms reported Hematologic/Lymphatic: States: no symptoms reported All other Systems: Reviewed and Negative Past Medical History (General) - Patient Medical History Hx Seizures: No Hx Stroke: No Hx Dementia: Yes Hx Asthma: No Hx of COPD: Yes Hx Cardiac Disorders: Yes - [place] Hx Congestive Heart Failure: Yes Hx Pacemaker: No Hx Hypertension: Yes Hx Thyroid Disease: No Hx Diabetes: Yes Hx Gastroesophageal Reflux: No Hx Renal Disease: No Hx Cancer: No Hx of HIV: No Hx Hepatitis C: No Hx MRSA: No - Vaccination History Hx Tetanus, Diphtheria Vaccination: Yes Hx Influenza Vaccination: No Hx Pneumococcal Vaccination: Yes - Social History Hx Tobacco Use: Yes Hx Chewing Tobacco Use: No Hx Alcohol Use: No Hx Substance Use: No Hx Substance Use Treatment: No Hx Depression: No Hx Physical Abuse: No Hx Emotional Abuse: No Hx Suspected Abuse: No - Female History Patient : No Family Medical History - Family History Father Family History: Unknown Living Status: Hx Family Asthma: No Hx Family Congestive Heart Failure: No Hx Family Hypertension: Yes Hx Cardiac Disease: Yes Physical Exam - Physical Exam General Appearance: Alert, Comfortable Eyes, Ears, Nose, Throat Exam: PERRL/EOMI, normal ENT inspection Neck: non-tender, supple Respiratory: chest non-tender, lungs clear, normal breath sounds Cardiovascular/Chest: normal peripheral pulses, bradycardia, other - 1+ LE edema Gastrointestinal/Abdominal: non tender, soft Extremity: normal range of motion, non-tender Neurologic: no motor/sensory deficits, alert, normal mood/affect Skin Exam: normal color, warm/dry Progress - Progress Progress: 05/27/19 16:10 MDM patient w/ multiple coomorbidities including chf, copd, ckd, andxiety presenting c/o dyspnea and panic attacks. Was seen one week prior and treated for copd exacerbation with prednisone and levaquin with some improvement but then symptoms returned this AM. Believes that he had a panic attack that caused his SOB. patient was treated with duoneb and ativan and reports he feels much better. Cardiac w/u was obtained and was unremarkable except for elevated d- dimer. He had a postive d-dimer in september and unfortunately inconclusive CTA. Was transferred to [facility] at that time and per , had negative VQ scan. Through shared decision making, decision was made not to obtain CTA due to risk of NOEMÍ and as PE is felt to be very unlikely. Patient reports he prefers to go home and f/u with his PCP. He reports he has been out of albuterol and needs refills as well for his nebulizer. Strong return precautions given. - Results/Orders Results/Orders: 05/27/19 14:45 EKG .ONCE 05/27/19 15:45 SVN [SVN/Updraft Therapy] .PRN Laboratory Results - last 24 hr 05/27/19 05/27/19 05/27/19 15:09 15:09 15:09 WBC 14.3 H RBC 3.78 L Hgb 10.5 L Hct 32.1 L MCV 85.1 MCH 27.8 MCHC 32.7 L RDW 16.5 H Plt Count 241 MPV 8.4 Absolute Neuts (auto) Not Reportable Absolute Lymphs (auto) Not Reportable Absolute Monos (auto) Not Reportable Absolute Eos (auto) Not Reportable Neutrophils % Not Reportable Neutrophils % (Manual) 70.0 Lymphocytes % Not Reportable Lymphocytes % (Manual) 17.0 Monocytes % Not Reportable Monocytes % (Manual) 9.0 Eosinophils % Not Reportable Basophils % Not Reportable Eosinophils 1.0 Metamyelocytes 1.0 H Myelocytes 1.0 H Promyelocytes 1.0 H Toxic Granulation 1+ Platelet Estimate Normal Anisocytosis 1+ D-Dimer, Quantitative Sodium 140 Potassium 4.3 Chloride 97 L Carbon Dioxide 30 Anion Gap 17.3 BUN 67 H Creatinine 3.14 H BUN/Creatinine Ratio 21.3 H Random Glucose 62 L Serum Osmolality 296.8 H Calcium 8.6 Total Bilirubin 0.6 AST 23 ALT 26 Alkaline Phosphatase 120 Troponin I 0.05 B-Natriuretic Peptide Serum Total Protein 6.8 Albumin 3.5 Globulin 3.3 Albumin/Globulin Ratio 1.1 05/27/19 05/27/19 15:09 15:09 WBC RBC Hgb Hct MCV MCH MCHC RDW Plt Count MPV Absolute Neuts (auto) Absolute Lymphs (auto) Absolute Monos (auto) Absolute Eos (auto) Neutrophils % Neutrophils % (Manual) Lymphocytes % Lymphocytes % (Manual) Monocytes % Monocytes % (Manual) Eosinophils % Basophils % Eosinophils Metamyelocytes Myelocytes Promyelocytes Toxic Granulation Platelet Estimate Anisocytosis D-Dimer, Quantitative 1.09 H* Sodium Potassium Chloride Carbon Dioxide Anion Gap BUN Creatinine BUN/Creatinine Ratio Random Glucose Serum Osmolality Calcium Total Bilirubin AST ALT Alkaline Phosphatase Troponin I B-Natriuretic Peptide 319.0 H* Serum Total Protein Albumin Globulin Albumin/Globulin Ratio - EKG/XRAY/CT Comments: Sinus raisa @ 58, left axis, RBBB, no STEMI XRAY: chest Xray Comments: No acute findings, my read Departure - Departure Clinical Impression: Anxiety Dyspnea Qualifiers: Dyspnea type: other forms of dyspnea Qualified Code(s): R06.09 - Other forms of dyspnea Disposition: Discharge to Home or Self Care Departure Forms: ED Discharge - Pt. Copy, Patient Portal Self Enrollment Instructions: Shortness of Breath (Dyspnea) (DC) Referrals: MANASA REES MD [Primary Care Provider] - 1-2 Weeks Prescriptions: Albuterol Sulfate Nebs [Proventil Nebs] 3 ml INH Q6HRS PRN #30 vial PRN Reason: Shortness Of Breath Home Medications: Ambulatory Orders Duloxetine HCl [Cymbalta] 60 mg PO BID #0 05/01/13 Clopidogrel Bisulfate [Plavix] 75 mg PO QD 06/25/15 Furosemide [Lasix] 40 mg PO DAILY #10 tab 06/25/15 Metoprolol Tartrate [Lopressor] 25 mg PO BID 06/25/15 Tamsulosin [Flomax] 0.4 mg PO BEDTIME 06/25/15 Dulaglutide [Trulicity] 0.75 mg SC WKLY 09/22/15 HYDROcodone 10MG/APAP 325MG [[place] 10/325] 1 tab PO Q6HR PRN 12/23/15 Pregabalin [Lyrica] 75 mg PO BEDTIME 03/24/16 Atorvastatin Calcium [Lipitor] 40 mg PO BEDTIME 03/25/19 Insulin Glargine [Toujeo Solostar] 80 unit SC DAILY 03/25/19 ALPRAZolam [Xanax] 0.5 mg PO PRN 04/22/19 Diphenhydramine HCl 50 mg PO BID 04/22/19 Magnesium [Chelated Magnesium] 200 mg PO BID 04/22/19 Albuterol Inhaler [Ventolin Hfa Inhaler] 2 puff INH Q6H PRN #1 inh 05/21/19 levoFLOXacin [Levaquin] 500 mg PO DAILY #10 tab 05/21/19 Albuterol Sulfate Nebs [Proventil Nebs] 3 ml INH Q6HRS PRN #30 vial 05/27/19
[2019-05-27] MEDS ORDERED: IPRATROPIUM/ALBUTEROL 3 ML VIAL NEB ONE ×3 (14:42→15:03)
[2019-05-27 16:09] VITALS: BP 151/69; TEMP 97; O2SAT 97
--- NOTE | 2019-05-27 16:11 | RAD ---
EXAM: Chest,1 View CLINICAL INDICATION: Shortness of breath COMPARISON: 05/21/2019 FINDINGS: A single view of the chest was obtained. The heart size is mildly enlarged. The pulmonary vascularity is unremarkable. The lungs are clear. There is no consolidation, infiltrate, pleural effusion, or pneumothorax. IMPRESSION: No evidence of active pulmonary disease. Mild cardiomegaly. Electronically signed by: Chintan Dave MD 05/27/2019 4:09 PM CDT
== END 2019-05-27 16:09 | disposition home or self-care (01) ==
LOC: ER 14:13
DX: R06.09 Other forms of dyspnea (principal); F41.9 Anxiety disorder, unspecified; I45.10 Unspecified right bundle-branch block; I25.2 Old myocardial infarction; E11.22 Type 2 diabetes mellitus with diabetic chronic kidney disease; I13.0 Hypertensive heart and chronic kidney disease with heart failure and stage 1 through stage 4 chronic kidney disease, or unspecified chronic kidney disease; N18.9 Chronic kidney disease, unspecified; I50.9 Heart failure, unspecified; Z79.02 Long term (current) use of antithrombotics/antiplatelets; Z79.899 Other long term (current) drug therapy; Z88.6 Allergy status to analgesic agent
CPT/HCPCS: 36415; 71045; 80053; 83880; 84484; 85025; 85379; 93005; 94640; J7620

== ENCOUNTER 2019-06-26 08:55 | Observation (INO) | payer MEDICARE, OTHER ==
--- NOTE | 2019-06-26 09:34 | ED.PDOC ---
History of Present Illness - General Chief Complaint: Respiratory Problem Stated Complaint: anxiety, shortness of breath Time Seen by Provider: 06/26/19 09:00 Source: patient, RN notes reviewed, Vital Signs reviewed, family Exam Limitations: no limitations Additional Information: this is a 78-year-old gentleman who presents with history of coronary artery disease, COPD, and CK D. This is his 10th visit this year and fifth visit for shortness of breath. His last visit was 05/27/19. He believes that his shortness of breath is caused from his anxiety. His states that she forgot to give him his Cymbalta last night and whenever he heard of that he began to panic. She is given him to 0.25 Xanax this morning the last being given about an hour ago without any improvement in his condition. He denies having any chest pain at this time. He states that he has not been coughing or running fever. His amount of swelling is as usual. He denies any worsening of swelling or orthopnea. No nausea or vomiting has occurred. He has not been diaphoretic. He does have a history of cardiac stents and last saw his nremt Dr. Orta last month. - History of Present Illness Allergies/Adverse Reactions: Allergies Morphine Adverse Reaction (Verified 05/27/19 14:40) Other Causes patient to be "Wild" Home Medications: Ambulatory Orders Duloxetine HCl [Cymbalta] 60 mg PO BID #0 05/01/13 Clopidogrel Bisulfate [Plavix] 75 mg PO BEDTIME 06/25/15 Metoprolol Tartrate [Lopressor] 25 mg PO BID 06/25/15 Tamsulosin [Flomax] 0.4 mg PO BEDTIME 06/25/15 Dulaglutide [Trulicity] 0.75 mg SC WKLY 09/22/15 Atorvastatin Calcium [Lipitor] 40 mg PO BEDTIME 03/25/19 Insulin Glargine [Toujeo Solostar] 80 unit SC DAILY 03/25/19 ALPRAZolam [Xanax] 0.5 mg PO PRN 04/22/19 Magnesium [Chelated Magnesium] 2 capsule PO BID 04/22/19 Furosemide [Lasix] 20 mg PO DAILY 06/26/19 Memantine HCl [Namenda] 5 mg PO BEDTIME 06/26/19 Review of Systems - Review of Systems Constitutional: States: no symptoms reported. Denies: chills, fever, malaise EENTM: States: no symptoms reported Respiratory: States: short of breath. Denies: cough, orthopnea, stridor, wheezing Cardiology: States: edema. Denies: chest pain, palpitations, syncope Gastrointestinal/Abdominal: States: no symptoms reported Genitourinary: States: no symptoms reported Musculoskeletal: States: no symptoms reported Skin: States: no symptoms reported Neurological: States: anxiety, emotional problems Endocrine: States: no symptoms reported Hematologic/Lymphatic: States: no symptoms reported All other Systems: Reviewed and Negative Past Medical History (General) - Patient Medical History Hx Seizures: No Hx Stroke: No Hx Dementia: Yes Hx Asthma: No Hx of COPD: Yes Hx Cardiac Disorders: Yes - [place] Hx Congestive Heart Failure: Yes Hx Pacemaker: No Hx Hypertension: Yes Hx Thyroid Disease: No Hx Diabetes: Yes Hx Gastroesophageal Reflux: No Hx Renal Disease: No Hx Cancer: No Hx of HIV: No Hx Hepatitis C: No Hx MRSA: No - Vaccination History Hx Tetanus, Diphtheria Vaccination: Yes Hx Influenza Vaccination: No Hx Pneumococcal Vaccination: Yes - Social History Hx Tobacco Use: Yes Hx Chewing Tobacco Use: No Hx Alcohol Use: No Hx Substance Use: No Hx Substance Use Treatment: No Hx Depression: No Hx Physical Abuse: No Hx Emotional Abuse: No Hx Suspected Abuse: No - Female History Patient : No Family Medical History - Family History Father Family History: Unknown Living Status: Hx Family Asthma: No Hx Family Congestive Heart Failure: No Hx Family Hypertension: Yes Hx Cardiac Disease: Yes Physical Exam - Physical Exam General Appearance: Agitated, Anxious, Obvious distress, Other - refuses to recline Eyes, Ears, Nose, Throat Exam: PERRL/EOMI, normal ENT inspection, TMs normal, pharynx normal Neck: non-tender, full range of motion, supple, normal inspection Respiratory: chest non-tender, lungs clear, normal breath sounds, no respiratory distress, no accessory muscle use Cardiovascular/Chest: normal peripheral pulses, regular rate, rhythm, other - edema 2+ bilaterally to the lower extremities Peripheral Pulses: radial,right: 2+, radial,left: 2+ Gastrointestinal/Abdominal: normal bowel sounds, non tender, soft, no organomegaly, no pulsatile mass Rectal Exam: deferred Extremity: normal range of motion, non-tender, normal inspection, pedal edema Neurologic: nuclear technologist II-XII nml as tested, no motor/sensory deficits, alert, oriented x 3 Skin Exam: normal color, warm/dry Lymphatic: no adenopathy Progress - Progress Progress: 06/26/19 10:04 patient w/ multiple coomorbidities including chf, copd, ckd, andxiety presenting c/o dyspnea and panic attacks. Was seen last on 05/27/19. one week prior and treated for copd exacerbation with prednisone and levaquin.Believes that he had a panic attack that caused his SOB. Pt has been treated with ativan Cardiac w/u was obtained and is remarkable for trop of 0.06 and elevated bnp. He had a postive d-dimer in september and unfortunately inconclusive CTA. Was transferred to [facility] at that time and per , had negative VQ scan. His bun/cr on 05/27 was 67/3.14. Today it is increased to 63/3.45. 06/26/19 10:15 06/26/19 12:10 I spoke with the family to discuss transfer for further care. Nursing staff asked that I run it by the hospitalist first to make sure they are not comfortable keeping it here. I spoke with nurse practitioner Carlitos Graves and he suggests that we contact Dr. Celis first and if Dr. Celis were comfortable with the patient being diuresed here he would be fine admitting. Dr. Celis states that he is fine with the patient being diuresed here. He has an appointment with him on Wednesday. - Results/Orders Results/Orders: IMPRESSION: Single AP portable upright view of the chest shows enlargement of the cardiac silhouette without pulmonary vascular congestion.. Lungs are hypoaerated without acute appearing infiltrate or consolidation.. No obvious pleural effusion or pneumothorax is seen. Dorsal column stimulator in the lower thoracic region is seen. 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 Laboratory Tests 06/26/19 06/26/19 06/26/19 09:26 09:26 09:26 WBC 9.8 RBC 3.78 L Hgb 10.7 L Hct 33.0 L MCV 87.3 MCH 28.3 MCHC 32.5 L RDW 17.2 H Plt Count 191 MPV 8.6 Absolute Neuts (auto) 5.50 Absolute Lymphs (auto) 2.70 Absolute Monos (auto) 1.10 H Absolute Eos (auto) 0.40 Absolute Basos (auto) 0.00 Neutrophils % 56.3 Lymphocytes % 27.6 Monocytes % 11.2 H Eosinophils % 4.5 Basophils % 0.4 Sodium 141 Potassium 4.3 Chloride 99 L Carbon Dioxide 28 Anion Gap 18.3 H BUN 63 H Creatinine 3.45 H BUN/Creatinine Ratio 18.3 Random Glucose 100 Serum Osmolality 299.3 H Calcium 8.3 L Total Bilirubin 0.7 AST 29 ALT 26 Alkaline Phosphatase 92 Troponin I 0.06 H B-Natriuretic Peptide Serum Total Protein 6.8 Albumin 3.8 Globulin 3.0 Albumin/Globulin Ratio 1.3 06/26/19 06/26/19 09:26 11:26 WBC RBC Hgb Hct MCV MCH MCHC RDW Plt Count MPV Absolute Neuts (auto) Absolute Lymphs (auto) Absolute Monos (auto) Absolute Eos (auto) Absolute Basos (auto) Neutrophils % Lymphocytes % Monocytes % Eosinophils % Basophils % Sodium Potassium Chloride Carbon Dioxide Anion Gap BUN Creatinine BUN/Creatinine Ratio Random Glucose Serum Osmolality Calcium Total Bilirubin AST ALT Alkaline Phosphatase Troponin I 0.05 B-Natriuretic Peptide 636.0 H* Serum Total Protein Albumin Globulin Albumin/Globulin Ratio - EKG/XRAY/CT EKG: Mike, Sinus, LVH, RBBB Comments: left axis deviation, T-wave inversions noted in V1 and aVR Departure - Departure Clinical Impression: CKD (chronic kidney disease) stage 3, GFR 30-59 ml/min, Panic attack, Dyspnea Congestive heart failure Qualifiers: Heart failure type: unspecified Heart failure chronicity: acute on chronic Qualified Code(s): I50.9 - Heart failure, unspecified Disposition: Admit Patient Condition: Fair Departure Forms: ED Discharge - Pt. Copy, Patient Portal Self Enrollment Referrals: MANASA REES MD [Primary Care Provider] - 1-2 Weeks Home Medications: Ambulatory Orders Duloxetine HCl [Cymbalta] 60 mg PO BID #0 05/01/13 Clopidogrel Bisulfate [Plavix] 75 mg PO BEDTIME 06/25/15 Metoprolol Tartrate [Lopressor] 25 mg PO BID 06/25/15 Tamsulosin [Flomax] 0.4 mg PO BEDTIME 06/25/15 Dulaglutide [Trulicity] 0.75 mg SC WKLY 09/22/15 Atorvastatin Calcium [Lipitor] 40 mg PO BEDTIME 03/25/19 Insulin Glargine [Toujeo Solostar] 80 unit SC DAILY 03/25/19 ALPRAZolam [Xanax] 0.5 mg PO PRN 04/22/19 Magnesium [Chelated Magnesium] 2 capsule PO BID 04/22/19 Furosemide [Lasix] 20 mg PO DAILY 06/26/19 Memantine HCl [Namenda] 5 mg PO BEDTIME 06/26/19 Decision To Admit - Decistion To Admit Decision to Admit Date: 06/26/19 Decision to Admit Time: 12:13
[2019-06-26] MEDS ORDERED: ASPIRIN (CHEWABLE) 81 MG TAB PO ONE (09:50)
[2019-06-26] MEDS ORDERED: FUROSEMIDE INJ 40 MG/4 ML VIAL IV ONE (09:51)
--- NOTE | 2019-06-26 10:18 | RAD ---
EXAM DESCRIPTION: Chest,1 View CLINICAL HISTORY: sob COMPARISON: May 27, 2019 IMPRESSION: Single AP portable upright view of the chest shows enlargement of the cardiac silhouette without pulmonary vascular congestion.. Lungs are hypoaerated without acute appearing infiltrate or consolidation.. No obvious pleural effusion or pneumothorax is seen. Dorsal column stimulator in the lower thoracic region is seen. 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
--- NOTE | 2019-06-26 12:40 | HP ---
SUPERVISING PHYSICIAN: Dedrick Fernandez MD CHIEF COMPLAINT: Shortness of breath, anxiety attack. HISTORY OF PRESENT ILLNESS: Mr. Sorto is a 78-year-old male patient that presented to the Emergency Room with a history of coronary artery disease, chronic obstructive pulmonary disease and chronic kidney disease along with some severe anxiety issues. He has been in the Emergency Room and hospitalized multiple times in the last year. He has had up to 5 visits in the last several months with shortness of breath. His last visit was 05/27/19 at which time he was seen for anxiety. I think he was sent at that time to [facility] but ended up leaving up against medical advice. He is admitted here for similar symptoms back in November and actually left against medical advice when he started feeling better. He does take Cymbalta and Xanax, he felt like he had a panic attack this morning. He does have a significant kidney disease and is followed by Dr. Celis. He denied he had been having any coughing or fever or any other symptoms. He is followed by Dr. Orta, cardiology, and has had several cardiac stents placed. Initially in the Emergency Room, his laboratory studies showed he had a normal white count with a stable hemoglobin at 10 and hematocrit at 33. A left shift was not noted. His chemistries showed a creatinine of 3.45 which is actually better than his baseline, in which his review of medical records showed to be around 3.6. His potassium was normal at 4.3. BNP was elevated at 636, he did have an initial troponin of 0.06. This was repeated 2 hours post admission to the Emergency Room and normalized at 0.05. His 12-lead EKG showed a bradycardic rhythm with a right bundle branch block. There were some T-wave inversions noted in V1 and AVR but no acute changes compared to previous. He was given some Lasix along with some Ativan and had improvement in his symptoms. He had a fairly good response to diuresis with the Lasix. Dr. Celis, his ski edge painter, was called in regards to the patient's presentation and he recommended the patient could stay at [place] at this point for diuresis. It was expected he would do well, however, if he was to have any acute deterioration he would probably take the patient in transfer. The patient agreed to admission for acute anxiety and further treatment of some questionable exacerbation of congestive heart failure. There was question of fluid overload with elevated BNP. At the time of admission in the Emergency Room, review of his records failed to reveal any recent echocardiogram. The patient is noted to be dependent on home 02 via nasal cannula. He is now going to be placed in observation. He is in stable condition at time of admission. PAST MEDICAL HISTORY: 1. Hyperlipidemia. 2. Hypertension, normally controlled. 3. Chronic kidney disease followed by Dr. Celis with baseline creatinine of 3.6. 4. Benign prostatic hypertrophy. 5. Type 2 diabetes mellitus, poorly controlled. 6. Severe anxiety and depression on Cymbalta and Xanax. PAST SURGICAL HISTORY: 1. Cholecystectomy. 2. Right total hip replacement. 3. Bilateral knee arthroscopies. 4. Bilateral shoulder arthroscopies. 5. Pain stimulator for pain control reportedly not working and not in service. 6. Lower back surgery. 7. Bilateral cataracts. 8. Open reduction and internal fixation of a closed femur fracture of the left femur in 2018. HOME MEDICATIONS: 1. Flomax 0.4 mg at bedtime. 2. Lopressor 25 mg b.i.d. 3. Namenda 5 mg at bedtime. 4. Magnesium 3 capsules daily b.i.d. 5. Toujeo Solostar 80 units subcutaneous daily. 6. Lasix 20 mg daily. 7. Cymbalta 60 mg b.i.d. 8. Trulicity 0.75 mg subcutaneous weekly. 9. Plavix 75 mg daily. 10. Lipitor 40 mg at bedtime. 11. Xanax 0.25 mg every 6 hours. ALLERGIES: MORPHINE. FAMILY HISTORY: Noncontributory. SOCIAL HISTORY: The patient is retired and lives in [place]. He is . He did smoke cigars, but quit 30 yeas previously. He does not drink alcohol or use illicit drugs. REVIEW OF SYSTEMS: CONSTITUTIONAL: Denied fevers, chills, general malaise, body aches, unintentional weight loss or weight gain. HEENT: Negative for headaches, sore throats, earaches, nasal congestion, vision changes. RESPIRATORY: As noted in history of present illness, some mild shortness of breath. CARDIOVASCULAR: Negative for chest pain, palpitations or syncopal episodes. GASTROINTESTINAL: Negative for nausea, vomiting, diarrhea, constipation or abdominal pain. GENITOURINARY: Negative for dysuria, hematuria, polyuria. MUSCULOSKELETAL: A left femur fracture within the last year with open reduction and chronic hip pain. SKIN: Negative for lesions, rashes, moles or unexplained changes. . NEUROLOGIC: Negative for any vision changes, ataxia, syncopal episodes, headaches, migraines or any other neurologic focal deficits. PHYSICAL EXAMINATION: VITAL SIGNS: Temperature 98, pulse 68. Blood pressure 181/82. Respirations 18, oxygen saturation 84% on room air but is 02 dependent on nasal cannula at 2 liters showing 95%. GENERAL: The patient on admission to the medical/surgical floor is resting comfortably. He is a little anxious at time when he wakes up but appears to be in no acute distress. HEENT: Tympanic membranes clear bilaterally. Oropharynx is pink, moist without any lesions. NECK: Supple, nontender with full range of motion. No jugular venous distention noted. RESPIRATORY: Lungs clear to auscultation bilaterally without any rhonchi, wheezes or rales noted. CARDIOVASCULAR: Regular rate and rhythm without any appreciable murmurs, gallops, or rubs. ABDOMEN: Nontender to palpation. Positive bowel sounds. RECTAL: Deferred. EXTREMITIES: 2+ bilateral lower extremity edema. NEUROLOGIC: Cranial nerves II-XII are grossly intact. He is alert and oriented x 3. Facial features are symmetrical. Extraocular movement were within normal limits. There is no notable nystagmus. SKIN: Warm, pink and dry. LABORATORY: White count 9,800, hemoglobin 10.7, hematocrit 33.0, platelet count 191,000, differential shows to be without a left shift. Chemistries shows a creatinine of 3.45 which is better than his baseline of 3.6 previously. BUN 63, potassium normal at 4.3, anion gap 18.5. Liver functions showing to be within normal limits. He did have one elevated troponin barely at 0.06. Repeat at 2 hours was normalized at 0.05. He did have an elevated BNP at 636. RADIOLOGY: Chest x-ray, single-view chest per radiologic showed enlargement of the cardiac silhouette without pulmonary vascular congestion. Lungs were hyperaerated without acute appearing infiltrate or consolidation. There are no obvious pleural effusions or pneumothorax seen. ADMISSION DIAGNOSIS: 1. Acute anxiety attack probably due to some mild dyspnea with patient being dependent on 02. 2. Chronic kidney failure with baseline creatinine of 3.6, followed by Dr. Celis, possibly contributing to some of the symptoms of #1. 3. Severe anxiety and depression on both Xanax and Cymbalta. 4. Hypertension, poorly controlled. 5. Diabetes mellitus, type 2, on insulin therapy. 6. Chronic low back pain. 7. Bilateral pedal edema with concerns for acute congestive heart failure with no current echocardiogram available at time of review, with some mild exacerbation likely with elevated BNP on admission requiring diuretics for symptom control. PLAN: Mr. Sorto is going to be admitted for close cardiac monitoring and further treatment. He was given Ativan in the Emergency Room and some Xanax and showing good resolution of his current panic attack. I have ordered an echocardiogram for in the morning as I could not find one that was current. He was given a dose of Lasix in the Emergency Room and showed good response to diuresis. Dr. Celis was notified of the patient's admission to the Emergency Room and requested the patient be admitted here for some mild diuresis and close monitoring but should he show any decline, certainly he will accept the patient in transfer. I would anticipate his length of stay to be at least 1 to 2 days. We will go ahead and start him on Lovenox for DVT prophylaxis. We will resume his medications once those are updated and verified. Certainly, we will need to touch base with Dr. Celis in the morning with a followup on the patient's clinical and laboratory results. Until we can transition him to outpatient management, we will continue to monitor and treat as needed. #[id number] [facility]
[2019-06-26] MEDS ORDERED: METOPROLOL TARTRATE INJ 5 MG/5 ML VIAL IV ONE ×2 (12:48→12:49)
[2019-06-26] MEDS ORDERED: SODIUM CHLORIDE 0.9% (FLUSH) 10 ML SYG IV PRN (14:47)
[2019-06-26] MEDS ORDERED: ACETAMINOPHEN 325 MG TAB PO PRN (14:47)
[2019-06-26] MEDS ORDERED: IV SET AND CAP CHANGE INJ INJ SCH (15:00)
[2019-06-26] MEDS: FUROSEMIDE INJ 40 MG/4 ML VIAL IV SCH (17:41)
[2019-06-26] MEDS ORDERED: MEMANTINE 10 MG TAB ONE (20:39)
[2019-06-26] MEDS ORDERED: DULoxetine HCL 30 MG CAP PO ONE (20:40)
[2019-06-26] MEDS ORDERED: ATORVASTATIN 20 MG TAB PO ONE (20:40)
[2019-06-26] MEDS ORDERED: NON-FORMULARY MEDICATION 1 EA MIS (Memantine Hcl [Namenda] 5 MG) PO SCH (21:00)
[2019-06-26] MEDS ORDERED: NON-FORMULARY MEDICATION 1 EA MIS (Atorvastatin Calcium [Lipitor] 40 MG) PO SCH (21:00)
[2019-06-26] MEDS ORDERED: NON-FORMULARY MEDICATION 1 EA MIS (Duloxetine Hcl [Cymbalta] 60 MG) PO SCH (21:00)
[2019-06-26] MEDS ORDERED: ENOXAPARIN SODIUM 40 MG/0.4 ML SYG SUBCU SCH (21:00)
[2019-06-26] MEDS ORDERED: TAMSULOSIN 0.4 MG CAP PO SCH (21:00)
[2019-06-26] MEDS ORDERED: CLOPIDOGREL 75 MG TAB PO SCH (21:00)
[2019-06-26] MEDS ORDERED: DEXTROSE 50% 25 GM/50 ML SYG IV PRN (21:03)
[2019-06-26] MEDS ORDERED: GLUCAGON INJ 1 MG VIAL SUBCU PRN (21:03)
[2019-06-26] MEDS: METOPROLOL TARTRATE 25 MG TAB PO SCH (21:18)
[2019-06-26] MEDS: MAGNESIUM PO SCH (21:38)
[2019-06-26] MEDS: HYDROcodone 10MG/APAP 325MG 1 EA TAB PO PRN (22:44)
[2019-06-26] MEDS ORDERED: ALPRAZolam 0.25 MG TAB ONE (23:44)
[2019-06-26] MEDS: ALPRAZolam 0.5 MG TAB PO SCH (23:54)
[2019-06-27] MEDS ORDERED: ALPRAZolam 0.25 MG TAB ONE (05:16)
[2019-06-27] MEDS: ALPRAZolam 0.5 MG TAB PO SCH ×2 (06:09→06:25)
[2019-06-27] MEDS: HYDROcodone 10MG/APAP 325MG 1 EA TAB PO PRN (06:10)
[2019-06-27] MEDS ORDERED: INSULIN LISPRO 100 UNITS/ML PEN SUBCU SCH (07:00)
[2019-06-27] MEDS ORDERED: FUROSEMIDE 40 MG TAB PO SCH (09:00)
[2019-06-27] MEDS ORDERED: INSULIN GLARGINE 80 UNIT SC SCH (09:00)
[2019-06-27] MEDS ORDERED: DULoxetine HCL 30 MG CAP PO SCH (09:00)
[2019-06-27] MEDS: MAGNESIUM PO SCH (10:40)
[2019-06-27] MEDS: FUROSEMIDE INJ 40 MG/4 ML VIAL IV SCH (10:40)
[2019-06-27] MEDS: METOPROLOL TARTRATE 25 MG TAB PO SCH (10:40)
--- NOTE | 2019-06-27 10:59 | DS ---
SUPERVISING PHYSICIAN: Leslie Fernandez MD DISCHARGE DIAGNOSIS: 1. Acute anxiety attack probably due to some mild dyspnea with patient being dependent on O2. 2. Chronic kidney failure with baseline creatinine of 3.6, followed by Dr. Celis, possibly contributing to some of the symptoms of #1. 3. Severe anxiety and depression on both Xanax and Cymbalta. 4. Hypertension, poorly controlled. 5. Diabetes mellitus, type 2, on insulin therapy. 6. Chronic low back pain. 7. Bilateral pedal edema with concerns for acute congestive heart failure with no current echocardiogram available at time of review, with some mild exacerbation likely with elevated BNP on admission requiring diuretics for symptom control. HISTORY OF PRESENT ILLNESS: This is a 78-year-old male patient that presented to the Emergency Room with a history of coronary artery disease, chronic obstructive pulmonary disease and chronic kidney disease along with some severe anxiety. He has been in the Emergency Room and hospitalized multiple times in the last year. He has had up to 5 visits in the last several months with shortness of breath. His last visit was 05/27/19 at which time he was seen for anxiety. He was sent to [facility] but ended up leaving up against medical advice. He was admitted here for similar symptoms back in November and actually left against medical advice when he started feeling better. He does take Cymbalta and Xanax. He felt like he had a panic attack the morning of admission. He does have significant kidney disease and is followed by Dr. Celis. He denied any coughing or fever or any other symptoms. He is followed by Dr. Orta, nut roaster helper, and has had several cardiac stents placed. Initially in the Emergency Room, his laboratory studies showed he had a normal white count with a stable hemoglobin at 10 and hematocrit at 33. A left shift was not noted. His chemistries showed a creatinine of 3.45 which is actually better than his baseline. His baseline from previous medical appears to be 3.6. His potassium was normal at 4.3. BNP was elevated at 636. He did have an initial troponin of 0.06 and then normalized to 0.05. His 12-lead EKG showed a bradycardia with a right bundle branch block. There were some T-wave inversions noted in V1 and AVR, but no acute changes compared to previous. He was given Lasix along as well as Ativan in the ER and his symptoms improved. He had good response to diuresis with the Lasix. Dr. Celis, his activated sludge attendant, was called in regards to the patient's presentation and he recommended the patient could stay at [place] at this point for diuresis. He was treated for anxiety as well as questionable exacerbation of congestive heart failure. He is O2 dependent at home and was placed in observation in the hospital for diuresis as well as treat his anxiety. HOSPITAL COURSE: An echocardiogram was ordered. He was given additional IV Lasix. Anxiety was controlled. He was started on Lovenox for DVT prophylaxis. He lost 2.6 pounds overnight. His lab is stable this morning. He will be discharged in stable condition today. LABORATORY: Lab and films are as per the history of present illness as well as his electrolytes are basically within normal limits. Today, his creatinine is 3.57, calcium slightly low at 8.3. DISCHARGE PLAN: The patient will be discharged home in stable condition. He is to resume his previous diet and activity as well as his home medications. He is to followup with Dr. Fernandez next week and call his office for an appointment. He has an appointment with Dr. Celis tomorrow at [facility]. He is to followup with Dr. Fernandez for any problems or complications. DISCHARGE MEDICATIONS: 1. Duloxetine. 2. Tamsulosin. 3. Plavix. 4. Metoprolol. 5. Trulicity. 6. Atorvastatin. 7. Toujeo insulin. 8. Magnesium. 9. Alprazolam. 10. Memantine. 11. Furosemide. #[id number]
[2019-06-27 11:42] VITALS: BP 162/74; TEMP 98.6; O2SAT 96
[2019-06-27] MEDS ORDERED: ALPRAZolam 0.25 MG TAB PO SCH (12:00)
[2019-06-27] MEDS ORDERED: ATORVASTATIN 20 MG TAB PO SCH (21:00)
[2019-06-27] MEDS ORDERED: MEMANTINE 10 MG TAB PO SCH (21:00)
== END 2019-06-27 12:30 | disposition home or self-care (01) ==
LOC: ER 08:55 → MS 12:39
PROVIDERS: ADMIT Nurse Practitioner Family; ATTEND Nurse Practitioner Acute Care
DX: F41.8 Other specified anxiety disorders (principal); R06.02 Shortness of breath; I12.9 Hypertensive chronic kidney disease with stage 1 through stage 4 chronic kidney disease, or unspecified chronic kidney disease; E11.22 Type 2 diabetes mellitus with diabetic chronic kidney disease; N18.9 Chronic kidney disease, unspecified; G89.29 Other chronic pain; M54.5 Low back pain; R60.0 Localized edema; I25.10 Atherosclerotic heart disease of native coronary artery without angina pectoris; J44.9 Chronic obstructive pulmonary disease, unspecified; R00.1 Bradycardia, unspecified; I45.10 Unspecified right bundle-branch block; E83.51 Hypocalcemia; E78.5 Hyperlipidemia, unspecified; N40.0 Benign prostatic hyperplasia without lower urinary tract symptoms; F03.90 Unspecified dementia, unspecified severity, without behavioral disturbance, psychotic disturbance, mood disturbance, and anxiety; I25.2 Old myocardial infarction; Z99.81 Dependence on supplemental oxygen; Z79.4 Long term (current) use of insulin; Z79.02 Long term (current) use of antithrombotics/antiplatelets; Z79.899 Other long term (current) drug therapy; Z88.6 Allergy status to analgesic agent; Z95.5 Presence of coronary angioplasty implant and graft; Z96.82 Presence of neurostimulator; Z96.641 Presence of right artificial hip joint; Z90.49 Acquired absence of other specified parts of digestive tract; Z87.891 Personal history of nicotine dependence
CPT/HCPCS: 96374; 96375; 96376; 96372; J1940 ×2; J2060; J1650; 80048; 80053; 82948 ×3; 36415 ×4; 85025; 84484 ×2; 83880; 36416 ×3; 71045; 94760 ×3; 99285; 93306; 93005

== ENCOUNTER → 2019-08-15 | Outpatient (CLI) | payer MEDICARE, OTHER ==
--- NOTE | 2019-08-15 17:00 | US ---
US HEAD NECK SOFT TISSUE CLINICAL STATEMENT:79 years Male CERVICAL[place]. COMPARISON: CT scan cervical spine April 2019. TECHNIQUE: Transcutaneous scanning, grayscale and Doppler modes. Technically difficult study due to large amount of soft tissue around the patient's neck. FINDINGS: Size right thyroid lobe: 4.2 x 1.9 x 1.7 cm Size left thyroid lobe: 4.5 x 2.1 x 1.6 cm Size isthmus: Not well seen. Estimated total number of nodules greater than or equal to 1 cm: 1 Nodule 1: Size: 2.5 x 2.3 x 1.0 cm Location: Right Upper Composition: solid or almost completely solid: 2 points Echogenicity: hypoechoic: 2 points Shape: wider than tall: 0 points Margins: ill-defined: 0 points Echogenic foci: none: 0 points ACR Total Points: 4; ACR TI-RADS risk category: TR4 - moderately suspicious nodule. Complex hypoechoic solid mass with echogenic calcifications or fat and lobular margins in the right neck inferior to the thyroid gland. Dimensions are 2.8 x 2.3 x 2.4 cm. No distinct cyst. Minimal elevation of the scan overlying the mass. Scanning of the bilateral submandibular glands shows normal homogeneous echogenicity of both glands. No dominant solid mass or distinct cyst. No large calcifications. No overlying skin changes.. IMPRESSION: 1. Nodule 1: ACR TI-RADS 2017 Category TR4. Recommend: Ultrasound-guided fine needle aspiration. Recommendations based upon [facility] Best Practice recommendations and ACR TI-RADS 2017 guidelines. Please see below*. 2. Complex solid mass approximately 3 cm in diameter, inferior to the right thyroid lobe. Possible calcifications. Not seen on CT scan of the cervical spine in April 2019. Consider CT scan of the neck without and with IV contrast. 3. Bilateral submandibular glands are unremarkable with no submandibular mass. *ACR TI-RADS 2017 Recommendations for imaging follow-up of nodules: TR1: No FNA or follow up TR2: No FNA or follow up TR3: FNA if >/= 2.5 cm, follow up if 1.5 - 2.4 cm in 1, 3, and 5 years TR4: FNA if >/= 1.5 cm, follow up if 1.0 - 1.4 cm in 1, 2, 3, and 5 years TR5: FNA if >/= 1.0 cm, follow up if 0.5 - 0.9 cm every year for 5 years ACR TI-RADS recommends that no more than two nodules with the highest ACR TI-RADS total point should be biopsied and no more than four nodules should be followed. These recommendations do not apply to patients with increased risk for thyroid cancer or patients with symptomatic thyroid disease. Electronically signed by: Xander Yarbrough MD 08/15/2019 4:58 PM [facility]
== END ==
LOC: US 12:49
PROVIDERS: ATTEND Family Medicine
DX: R59.0 Localized enlarged lymph nodes (principal); E04.1 Nontoxic single thyroid nodule; E07.9 Disorder of thyroid, unspecified; M54.2 Cervicalgia

== ENCOUNTER → 2019-08-24 | Outpatient (CLI) | payer MEDICARE, OTHER ==
--- NOTE | 2019-08-25 09:26 | CT ---
EXAM DESCRIPTION: Soft Tissue Neck: Computed Tomography CLINICAL HISTORY: 79 years Male, LOCALIZED SWELLING, MASS AND LUMP NECK COMPARISON: Ultrasound of the neck soft tissues and thyroid gland 15 August 2019. TECHNIQUE: Spiral, axial 2.5 x 2.5 mm scans through the neck soft tissues after infusion of IV contrast. Sagittal and coronal 2.0 mm reconstructions. Total Exam DLP: 427.13 mGy-cm. This exam was performed according to our departmental CT dose-optimization program which includes automated exposure control, adjustment of the mA and/or kV according to patient size and/or use of iterative reconstruction technique; to reduce radiation dose to as low as reasonably achievable (ALARA). Study is somewhat limited due to lack of IV contrast. Patient markedly elevated serum creatinine. FINDINGS: Right lobe of the thyroid gland measures 4.5 x 3.5 x 1.0 cm with heterogeneous density. Left lobe of the thyroid gland measures 3.7 x 2.5 x 0.95 cm. Also heterogeneous density. Isthmus thickness 5 mm with calcification to the right of midline. There may be small calcifications in the inferior pole of the right lobe. No dominant mass or nodule visualized. No soft tissue mass inferior to the thyroid gland or in the upper mediastinum. Small bilateral lymph nodes in the fatty tissues at the level of the thyroid gland bilaterally. Calcification in the anterior midline cricoid cartilage and bilateral wings. Included paranasal sinuses are unremarkable. Several of the inferior right mastoid air cells are opacified. Better aeration on the left. Nasopharynx, oropharynx, and hypopharynx normally configured with no effacement or displacement or asymmetry. Bilateral submandibular glands and mastoid air cells are uniform in density and size symmetric with no abnormal calcifications. Small lymph nodes abutting the submandibular glands and parotid glands. Subcutaneous tissues are negative no enlarged lymph nodes in the carotid, parapharyngeal, or paracervical spaces. Anterior mediastinum is widened due to fatty content. Increased interstitial and mosaic pattern in the included lung weller. Arthrosis in the atlantoaxial joint. Grade 1 anterolisthesis at C4-C5. Advanced spondylosis at C5-C6 disc space loss, posterior disc bulge and bilateral significant neural foraminal narrowing and canal narrowing. Minimal disc space loss at C6-C7. Trace anterolisthesis. IMPRESSION: 1. Thyroid gland is heterogeneous bilaterally and not enlarged. No dominant solid nodules. Consider follow-up thyroid ultrasound in one year interval. No enlarged nodes or dominant soft tissue masses in the soft tissues surrounding the thyroid gland, or in the base of the neck superior to the mediastinum. Mediastinal lipomatosis but no masses. Bilateral chronic airspace disease in the lungs. 2. Airway is unremarkable. No soft tissue masses in the lower face or neck. Specifically, no soft tissue masses in the submandibular region. Sensitivity is decreased due to lack of IV contrast. 3. Several levels of spondylosis and chronic arthrosis in the cervical spine, more severe C5-C6 level. See details above. Electronically signed by: Xnader Yarbrough MD 08/25/2019 9:25 AM [facility]
== END ==
LOC: CT 08:00
PROVIDERS: ATTEND Family Medicine
DX: R22.1 Localized swelling, mass and lump, neck (principal); J84.9 Interstitial pulmonary disease, unspecified; M47.892 Other spondylosis, cervical region; M43.12 Spondylolisthesis, cervical region

== ENCOUNTER 2019-09-24 02:29 | Emergency (ER) | payer MEDICARE, OTHER ==
[2019-09-24] MEDS: IPRATROPIUM/ALBUTEROL 3 ML VIAL INH ONE (02:30)
--- NOTE | 2019-09-24 03:02 | ED.PDOC ---
History of Present Illness - General Chief Complaint: Respiratory Problem Stated Complaint: Dyspnea Time Seen by Provider: 09/24/19 02:39 Source: patient, RN notes reviewed, Vital Signs reviewed, family Exam Limitations: clinical condition - History of Present Illness Initial Comments: This is a 79-year-old male with history of COPD, CAD with stents, history of CHF, presenting with severe shortness of breath onset 1 hour prior to arrival. He presented respiratory distress with 2-3 word dyspnea. He reports increased leg swelling over the past week or so. He denies any missed doses of his Lasix. No recent fevers. He does report a mild increase in his cough and sputum production. Reports some chest pain with breathing only. He denies any hemoptysis. Timing/Duration: 1 hour Activities at Onset: rest Possible Cause: frequent episodes Improving Factors: movement Worsening Factors: nothing Associated Symptoms: anxiety, chest pain Respiratory Risk Factors: no cause identified Allergies/Adverse Reactions: Allergies Morphine Adverse Reaction (Verified 06/26/19 13:16) Other Causes patient to be "Wild" Home Medications: Ambulatory Orders Duloxetine HCl [Cymbalta] 60 mg PO BID #0 05/01/13 Clopidogrel Bisulfate [Plavix] 75 mg PO BEDTIME 06/25/15 Metoprolol Tartrate [Lopressor] 25 mg PO BID 06/25/15 Tamsulosin [Flomax] 0.4 mg PO BEDTIME 06/25/15 Dulaglutide [Trulicity] 0.75 mg SC WKLY 09/22/15 Atorvastatin Calcium [Lipitor] 40 mg PO BEDTIME 03/25/19 Insulin Glargine [Toujeo Solostar] 80 unit SC DAILY 03/25/19 ALPRAZolam [Xanax] 0.25 mg PO Q6HR 04/22/19 Magnesium [Chelated Magnesium] 2 capsule PO BID 04/22/19 Furosemide [Lasix] 20 mg PO DAILY 06/26/19 Memantine HCl [Namenda] 5 mg PO BEDTIME 06/26/19 Doxycycline (Monohydrate) [Doxycycline Monohydrate] 100 mg PO Q12HR 10 Days tab 09/24/19 predniSONE 40 mg PO DAILY 3 Days tab 09/24/19 Review of Systems - Review of Systems Constitutional: States: no symptoms reported. Denies: chills, fever EENTM: States: no symptoms reported. Denies: nose pain, nose congestion Respiratory: States: cough, orthopnea, short of breath. Denies: wheezing Cardiology: States: chest pain, edema. Denies: palpitations, syncope Gastrointestinal/Abdominal: Denies: abdominal pain, diarrhea, nausea, vomiting Genitourinary: Denies: dysuria, hematuria Musculoskeletal: Denies: joint pain, joint swelling, muscle pain, muscle stiffness Skin: States: no symptoms reported Neurological: States: no symptoms reported Endocrine: States: no symptoms reported Hematologic/Lymphatic: States: no symptoms reported Past Medical History (General) - Patient Medical History Hx Seizures: No Hx Stroke: No Hx Dementia: Yes Hx Asthma: No Hx of COPD: Yes Hx Cardiac Disorders: Yes - [place] Hx Congestive Heart Failure: Yes Hx Pacemaker: No Hx Hypertension: Yes Hx Thyroid Disease: No Hx Diabetes: Yes Hx Gastroesophageal Reflux: No Hx Renal Disease: No Hx Cancer: No Hx of HIV: No Hx Hepatitis C: No Hx MRSA: No - Vaccination History Hx Tetanus, Diphtheria Vaccination: Yes Hx Influenza Vaccination: No Hx Pneumococcal Vaccination: Yes - Social History Hx Tobacco Use: Yes Hx Chewing Tobacco Use: No Hx Alcohol Use: No Hx Substance Use: No Hx Substance Use Treatment: No Hx Depression: No Hx Physical Abuse: No Hx Emotional Abuse: No Hx Suspected Abuse: No - Female History Patient : No Family Medical History - Family History Father Family History: Unknown Living Status: Hx Family Asthma: No Hx Family Congestive Heart Failure: No Hx Family Hypertension: Yes Hx Cardiac Disease: Yes Physical Exam - Physical Exam General Appearance: Alert, Anxious, Obvious distress, Ill Appearing Eyes, Ears, Nose, Throat Exam: TMs normal, pharynx normal, other - Pinpoint pupils bilaterally Neck: full range of motion, supple Respiratory: respiratory distress, decreased breath sounds, accessory muscle use, crackles Cardiovascular/Chest: regular rate, rhythm, no murmur Gastrointestinal/Abdominal: non tender, soft, other - Obese Extremity: non-tender, no calf tenderness, pedal edema - 2+ pitting edema to the lower extremities extending up to the knee Neurologic: no motor/sensory deficits, alert, normal mood/affect, oriented x 3, other - Patient is anxious, slightly agitated Skin Exam: normal color, warm/dry Progress - Progress Progress: 09/24/19 05:31 recheck. Patient feeling much better after albuterol and Atrovent. He is now on 2 L/min, his home baseline. Lungs clear, no respiratory distress. Patient feels much better and wants to go home. No evidence of severe pulmonary edema necessitating admission to the hospital for diuresis. Recommended he follow-up with his PCP in 1 to 2 days, increase his Lasix dose to 40 mg daily for the next 4 to 5 days. Strict warnings given to return the emergency room for fever, worsening shortness of breath, changes in mental status, inability tolerate p.o., chest pain, worsening leg swelling, or - Results/Orders Results/Orders: 09/24/19 02:39 IV Care:Saline Lock per Protoc QSHIFT Telemetry .ONCE Sodium Chloride 0.9% (Flush) [Saline Flush Syringe] 10 ml IV PRN PRN BLOOD CULTURE Stat EKG Assessment ONCE Pulse Oximetry Assessment DAILY 09/24/19 02:41 BiPAP/CPAP Treatment DAILY 09/24/19 02:42 ABG [Arterial Blood Gas] Stat 09/24/19 02:45 EKG STAT 09/24/19 05:20 UA [URINALYSIS] Stat 09/24/19 06:45 LACTIC ACID Q2H 09/24/19 08:45 LACTIC ACID Q2H 09/24/19 09:00 BiPAP Daily Pulse Ox Daily 09/24/19 10:45 LACTIC ACID Q2H 09/24/19 12:45 LACTIC ACID Q2H 09/24/19 14:45 LACTIC ACID Q2H 09/24/19 16:45 LACTIC ACID Q2H 09/24/19 18:45 LACTIC ACID Q2H 09/24/19 20:45 LACTIC ACID Q2H 09/24/19 22:45 LACTIC ACID Q2H Laboratory Results - last 24 hr 09/24/19 09/24/19 09/24/19 02:39 02:39 02:39 WBC 9.5 RBC 3.29 L Hgb 9.6 L Hct 29.0 L MCV 88.3 MCH 29.2 MCHC 33.1 RDW 15.6 H Plt Count 158 MPV 8.0 Absolute Neuts (auto) 5.50 Absolute Lymphs (auto) 2.00 Absolute Monos (auto) 0.90 H Absolute Eos (auto) 1.00 H Absolute Basos (auto) 0.10 Neutrophils % 57.8 Lymphocytes % 21.2 Monocytes % 9.6 H Eosinophils % 10.4 H Basophils % 1.0 PT 9.7 INR < 1.00 PTT (SP) 22.3 Sodium 144 Potassium 5.1 H Chloride 101 Carbon Dioxide 34 H Anion Gap 14.1 BUN 64 H Creatinine 3.64 H BUN/Creatinine Ratio 17.6 Random Glucose 70 Serum Osmolality 303.6 H Lactic Acid Calcium 8.5 Total Bilirubin 0.7 AST 20 ALT 16 Alkaline Phosphatase 116 Troponin I B-Natriuretic Peptide 279.0 H* Serum Total Protein 6.9 Albumin 3.7 Globulin 3.2 Albumin/Globulin Ratio 1.2 09/24/19 09/24/19 09/24/19 02:39 02:39 05:12 WBC RBC Hgb Hct MCV MCH MCHC RDW Plt Count MPV Absolute Neuts (auto) Absolute Lymphs (auto) Absolute Monos (auto) Absolute Eos (auto) Absolute Basos (auto) Neutrophils % Lymphocytes % Monocytes % Eosinophils % Basophils % PT INR PTT (SP) Sodium Potassium Chloride Carbon Dioxide Anion Gap BUN Creatinine BUN/Creatinine Ratio Random Glucose Serum Osmolality Lactic Acid 1.8 1.0 Calcium Total Bilirubin AST ALT Alkaline Phosphatase Troponin I 0.03 B-Natriuretic Peptide Serum Total Protein Albumin Globulin Albumin/Globulin Ratio CXR: IMPRESSION: 1. Cardiomegaly. No acute chest disease. Electronically sig josef by: Blanca Hu DO 09/24/2019 3:16 AM [facility] MANAGER Departure - Departure Clinical Impression: COPD exacerbation, Chronic kidney disease (CKD), Dyspnea Disposition: Discharge to Home or Self Care Condition: Good Departure Forms: ED Discharge - Pt. Copy, Patient Portal Self Enrollment Referrals: MANASA REES MD [Primary Care Provider] - 1-2 Days Prescriptions: Doxycycline (Monohydrate) [Doxycycline Monohydrate] 100 mg PO Q12HR 10 Days tab predniSONE 40 mg PO DAILY 3 Days tab Home Medications: Ambulatory Orders Duloxetine HCl [Cymbalta] 60 mg PO BID #0 05/01/13 Clopidogrel Bisulfate [Plavix] 75 mg PO BEDTIME 06/25/15 Metoprolol Tartrate [Lopressor] 25 mg PO BID 06/25/15 Tamsulosin [Flomax] 0.4 mg PO BEDTIME 06/25/15 Dulaglutide [Trulicity] 0.75 mg SC WKLY 09/22/15 Atorvastatin Calcium [Lipitor] 40 mg PO BEDTIME 03/25/19 Insulin Glargine [Toujeo Solostar] 80 unit SC DAILY 03/25/19 ALPRAZolam [Xanax] 0.25 mg PO Q6HR 04/22/19 Magnesium [Chelated Magnesium] 2 capsule PO BID 04/22/19 Furosemide [Lasix] 20 mg PO DAILY 06/26/19 Memantine HCl [Namenda] 5 mg PO BEDTIME 06/26/19 Doxycycline (Monohydrate) [Doxycycline Monohydrate] 100 mg PO Q12HR 10 Days tab 09/24/19 predniSONE 40 mg PO DAILY 3 Days tab 09/24/19 Additional Instructions: Increase your Lasix dose to 40mg daily for the next 5 days. Follow up with your PCP in 1-2 days for recheck.
[2019-09-24] MEDS ORDERED: levoFLOXacin 500MG IV 100 ML IVPB ONE (03:04)
[2019-09-24] MEDS: levoFLOXacin 500MG IV 500 MG in PREMIX BAG 1 BAG IVPB ONE (03:04)
[2019-09-24] MEDS: SODIUM CHLORIDE 0.9% (FLUSH) 10 ML SYG IV PRN (03:05)
--- NOTE | 2019-09-24 03:18 | RAD ---
CHEST, ONE VIEW XR CLINICAL HISTORY: SOB COMPARISON: 06/26/2019 TECHNIQUE: AP Chest. FINDINGS: Heart is enlarged. Normal pulmonary vascularity. Right apex is partially obscured by patient's chin soft tissues. No consolidation. Pleural spaces are clear. Unremarkable soft tissues and bones. Lower thoracic neurostimulator device is stable. IMPRESSION: 1. Cardiomegaly. No acute chest disease. Electronically signed by: Blanca Hu DO 09/24/2019 3:16 AM [employer]
[2019-09-24 05:44] VITALS: BP 144/90; TEMP 97.9; O2SAT 96
== END 2019-09-24 05:45 | disposition home or self-care (01) ==
LOC: ER 02:29
DX: J44.1 Chronic obstructive pulmonary disease with (acute) exacerbation (principal); N18.9 Chronic kidney disease, unspecified; R07.9 Chest pain, unspecified; I50.9 Heart failure, unspecified; I25.10 Atherosclerotic heart disease of native coronary artery without angina pectoris; I25.2 Old myocardial infarction; E11.22 Type 2 diabetes mellitus with diabetic chronic kidney disease; I13.0 Hypertensive heart and chronic kidney disease with heart failure and stage 1 through stage 4 chronic kidney disease, or unspecified chronic kidney disease; F03.90 Unspecified dementia, unspecified severity, without behavioral disturbance, psychotic disturbance, mood disturbance, and anxiety; Z95.5 Presence of coronary angioplasty implant and graft; Z87.891 Personal history of nicotine dependence; Z79.899 Other long term (current) drug therapy; Z88.5 Allergy status to narcotic agent; Z79.02 Long term (current) use of antithrombotics/antiplatelets; Z79.4 Long term (current) use of insulin
CPT/HCPCS: 36600; 71045; 80053; 82803; 82805; 83605; 83880; 84484; 85025; 85610; 85730; 87040; 93005; 94640; 94660; J1956; J2060; J7620

== ENCOUNTER 2019-11-08 11:26 | Inpatient (IN) | payer MEDICARE, OTHER ==
--- NOTE | 2019-11-08 11:47 | ED.PDOC ---
History of Present Illness - General Chief Complaint: Chest Pain/MD Stated Complaint: chest pain Time Seen by Provider: 11/08/19 11:39 Source: patient Exam Limitations: no limitations - History of Present Illness Initial Comments: 79 y/o male with SOB and intermittent chest pain most notable when transferring from chair to bed. His legs have been swelling more than usual. no fever, cough or vomiting. Timing/Duration: days, intermittent Severity/Quality: dull Location: central Chest Pain Radiation: back Activities at Onset: activity Improving Factors: other - goes away on it's own Nitro Today/Relief: no nitro taken today Aspirin Treatment Today: unknown Allergies/Adverse Reactions: Allergies Morphine Adverse Reaction (Verified 06/26/19 13:16) Other Causes patient to be "Wild" Home Medications: Ambulatory Orders Clopidogrel Bisulfate [Plavix] 75 mg PO BEDTIME 06/25/15 Metoprolol Tartrate [Lopressor] 25 mg PO BID 06/25/15 Tamsulosin [Flomax] 0.4 mg PO BEDTIME 06/25/15 Dulaglutide [Trulicity] 0.75 mg SC WKLY 09/22/15 Atorvastatin Calcium [Lipitor] 40 mg PO BEDTIME 03/25/19 Insulin Glargine [Toujeo Solostar] 70 unit SC DAILY 03/25/19 ALPRAZolam [Xanax] 0.25 mg PO Q6HR PRN 04/22/19 Magnesium [Chelated Magnesium] 2 capsule PO BID 04/22/19 Furosemide [Lasix] 40 mg PO DAILY 06/26/19 Memantine HCl [Namenda] 5 mg PO BEDTIME 06/26/19 Hydrocodone-Acetaminophen [Hydrocodone Bitartrate/AC 10-325 mg] 1 tab PO PRN 11/08/19 Sertraline HCl [Zoloft] 50 mg PO BID 11/08/19 Review of Systems - Review of Systems Constitutional: Denies: chills, fever EENTM: Denies: blurred vision, throat pain Respiratory: States: see HPI, short of breath. Denies: cough, orthopnea Cardiology: States: chest pain, edema. Denies: palpitations, syncope Gastrointestinal/Abdominal: Denies: abdominal pain, diarrhea, nausea, vomiting Genitourinary: Denies: frequency, hematuria Musculoskeletal: States: back pain. Denies: muscle pain Skin: Denies: rash Neurological: States: weakness. Denies: anxiety, headache, numbness, paresthesia Past Medical History (General) - Patient Medical History Hx Seizures: No Hx Stroke: No Hx Dementia: Yes Hx Asthma: No Hx of COPD: Yes Hx Cardiac Disorders: Yes - [place] Hx Congestive Heart Failure: Yes Hx Pacemaker: No Hx Hypertension: Yes Hx Thyroid Disease: No Hx Diabetes: Yes Hx Gastroesophageal Reflux: No Hx Renal Disease: No Hx Cancer: No Hx of HIV: No Hx Hepatitis C: No Hx MRSA: No - Vaccination History Hx Tetanus, Diphtheria Vaccination: Yes Hx Influenza Vaccination: No Hx Pneumococcal Vaccination: Yes - Social History Hx Tobacco Use: Yes Hx Chewing Tobacco Use: No Hx Alcohol Use: No Hx Substance Use: No Hx Substance Use Treatment: No Hx Depression: No Hx Physical Abuse: No Hx Emotional Abuse: No Hx Suspected Abuse: No - Female History Patient : No Family Medical History - Family History Father Family History: Unknown Living Status: Hx Family Asthma: No Hx Family Congestive Heart Failure: No Hx Family Hypertension: Yes Hx Cardiac Disease: Yes Physical Exam - Physical Exam General Appearance: Anxious, Ill Appearing, Obese, Other - pale Eyes, Ears, Nose, Throat Exam: normal ENT inspection Neck: full range of motion, supple, other - positive JVD Respiratory: decreased breath sounds, other - tacchypneic Cardiovascular/Chest: regular rate, rhythm, no murmur, JVD Gastrointestinal/Abdominal: normal bowel sounds, non tender, soft, distended Extremity: pedal edema, swelling Neurologic: alert, normal mood/affect, oriented x 3 Skin Exam: pallor Progress - Progress Progress: 11/08/19 12:43 patient had hgb 9.6 in September 2019 and Cr 3.6 hgb now 7.8 and Cr 4.36 worsening renal failure and fluid overload - Results/Orders Results/Orders: 11/08/19 11:39 Oxygen Stat 11/08/19 11:45 EKG STAT 11/08/19 12:49 Isolation:Droplet ONCE 11/09/19 09:00 Pulse Ox Daily Laboratory Results - last 24 hr 11/08/19 11/08/19 11:20 11:43 WBC 9.7 RBC 2.61 L Hgb 7.8 L* Hct 23.5 L MCV 89.8 MCH 29.9 MCHC 33.3 RDW 16.3 H Plt Count 147 MPV 9.0 Absolute Neuts (auto) 6.90 H Absolute Lymphs (auto) 1.30 Absolute Monos (auto) 0.90 H Absolute Eos (auto) 0.60 H Absolute Basos (auto) 0.10 Neutrophils % 71.2 Lymphocytes % 13.3 L Monocytes % 9.0 Eosinophils % 5.9 H Basophils % 0.6 PT 9.5 INR < 1.00 PTT (SP) 21.3 L Sodium 139 Potassium 5.3 H Chloride 97 L Carbon Dioxide 33 H Anion Gap 14.3 BUN 72 H Creatinine 4.26 H BUN/Creatinine Ratio 16.9 Random Glucose 129 H Serum Osmolality 300.4 H Calcium 7.7 L Magnesium 4.0 H Total Bilirubin 0.7 AST 20 ALT 16 Alkaline Phosphatase 110 Creatine Kinase 119 CK-MB (CK-2) 2.6 CK-MB (CK-2) % Not Reportable Troponin I 0.03 B-Natriuretic Peptide 655.0 H* Serum Total Protein 6.4 Albumin 3.4 Globulin 3.0 Albumin/Globulin Ratio 1.1 Urine Color Yellow Urine Appearance Clear Urine pH 8.5 H Ur Specific Calvin 1.020 Urine Protein 100 H Urine Glucose (UA) Negative Urine Ketones Negative Urine Blood Trace-intact H Urine Nitrite Negative Urine Bilirubin Negative Urine Urobilinogen 0.2 Ur Leukocyte Esterase Negative Urine RBC 0-1 Urine WBC 0-1 Ur Epithelial Cells 0 Amorphous Sediment 1+ Urine Bacteria 0 Departure - Departure Clinical Impression: Anemia of chronic disease Acute exacerbation of CHF (congestive heart failure) Qualifiers: Heart failure type: unspecified Qualified Code(s): I50.9 - Heart failure, unspecified Chronic kidney disease (CKD) Qualifiers: Chronic kidney disease stage: unspecified stage Qualified Code(s): N18.9 - Chronic kidney disease, unspecified Chest pain Qualifiers: Chest pain type: unspecified Qualified Code(s): R07.9 - Chest pain, unspecified Disposition: Discharge to Home or Self Care Departure Forms: ED Discharge - Pt. Copy, Patient Portal Self Enrollment Instructions: DI for Chest Pain Referrals: MANASA REES MD [Primary Care Provider] - 1-2 Weeks Home Medications: Ambulatory Orders Clopidogrel Bisulfate [Plavix] 75 mg PO BEDTIME 06/25/15 Metoprolol Tartrate [Lopressor] 25 mg PO BID 06/25/15 Tamsulosin [Flomax] 0.4 mg PO BEDTIME 06/25/15 Dulaglutide [Trulicity] 0.75 mg SC WKLY 09/22/15 Atorvastatin Calcium [Lipitor] 40 mg PO BEDTIME 03/25/19 Insulin Glargine [Toujeo Solostar] 70 unit SC DAILY 03/25/19 ALPRAZolam [Xanax] 0.25 mg PO Q6HR PRN 04/22/19 Magnesium [Chelated Magnesium] 2 capsule PO BID 04/22/19 Furosemide [Lasix] 40 mg PO DAILY 06/26/19 Memantine HCl [Namenda] 5 mg PO BEDTIME 06/26/19 Hydrocodone-Acetaminophen [Hydrocodone Bitartrate/AC 10-325 mg] 1 tab PO PRN 11/08/19 Sertraline HCl [Zoloft] 50 mg PO BID 11/08/19 Decision To Admit - Decistion To Admit Decision to Admit Reason: Medical Nature Decision to Admit Date: 11/08/19 Decision to Admit Time: 12:53
--- NOTE | 2019-11-08 11:59 | RAD ---
EXAM DESCRIPTION: Chest,1 View CLINICAL HISTORY: 79 years Male, SOB COMPARISON: Radiograph the chest dated 09/24/2019. TECHNIQUE: AP radiograph of the chest was obtained. FINDINGS: Trachea is midline.The cardiomediastinal silhouette is enlarged in size. Bilateral pulmonary vascular congestion. Right lower lobe airspace opacities could represent atelectasis and/or pulmonary edema. IMPRESSION: Enlarged cardiac silhouette with bilateral pulmonary vascular congestion. Findings are concerning for congestive heart failure. Right lower lobe airspace opacities could represent atelectasis and/or pulmonary edema. Electronically signed by: Brandie Burch MD 11/08/2019 11:58 AM CDT
[2019-11-08] MEDS ORDERED: FUROSEMIDE INJ 40 MG/4 ML VIAL IV ONE ×2 (12:38→14:14)
--- NOTE | 2019-11-08 13:51 | HP ---
SUPERVISING PHYSICIAN: Sarath Queen MD CHIEF COMPLAINT: Shortness of breath and chest pain. HISTORY OF PRESENT ILLNESS: This is a 79-year-old male patient who presented to the Emergency Room that has had about a 3 to 4 day complaint of increasing shortness of breath with intermittent chest pain as well as swelling in his legs that is more than usual. There has been no fever or cough, nausea or vomiting and he has been quite short of breath. He has a significant history of congestive heart failure. His admitting vital signs showed temperature 99.2, heart rate 68, blood pressure 131/96, respiratory rate 24, O2 saturation 98% on 2 liters nasal cannula. Lab studies and showed WBC 9,700. There was no shift on his differential. Hemoglobin 7.8, hematocrit 23.5. Sodium 139, potassium 5.3, chloride 97, carbon dioxide 33, BUN 72, creatinine 4.26. Baseline creatinine is about 3.2. Magnesium 4, BNP 655. Urinalysis shows urine pH 8.5, 100 of urine protein and a trace of intact urine blood. Chest x-ray shows enlarged cardiac silhouette with bilateral pulmonary vascular congestion, findings concerning for congestive heart failure and right lower lobe airspace opacity could represent atelectasis and/or pulmonary edema. He was given 40 mg of Lasix in the ER and I was called for hospital admission. PAST MEDICAL HISTORY: 1. Hyperlipidemia. 2. Hypertension. 3. Chronic kidney disease, followed by Dr. 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 4. Benign prostatic hypertrophy. 5. Type 2 diabetes mellitus, poorly controlled. 6. Severe anxiety and depression. PAST SURGICAL HISTORY: 1. Cholecystectomy. 2. Right total hip replacement. 3. Bilateral knee arthroscopies. 4. Bilateral shoulder arthroscopies. 5. Pain stimulator for pain control. 6. Low back surgery. 7. Bilateral cataracts. 8. ORIF of femur fracture in 2018. OUTPATIENT MEDICATIONS: Per the EMR and awaiting verification. ALLERGIES: MORPHINE. FAMILY HISTORY: Noncontributory. SOCIAL HISTORY: He lives in [place]. He is retired. He is . He quit smoking cigars approximately 30 years. He does not drink alcohol or use illicit drugs. He does not have home health, but he has in the past. REVIEW OF SYSTEMS: GENERAL: Positive for fatigue. Negative for fever or weight changes. HEENT: Negative for sinus symptoms, ear pain, vision changes or sore throat. RESPIRATORY: As per history of present illness. CARDIAC: As per history of present illness. GASTROINTESTINAL: Negative for nausea, vomiting, diarrhea, constipation. GENITOURINARY: Negative for hematuria, dysuria or polyuria. MUSCULOSKELETAL: He does not walk due to extreme weakness. He denies arthralgias, myalgias. SKIN: Negative for lesions or rashes. NEUROLOGIC: Positive for weakness. Negative for headaches or seizures. PHYSICAL EXAMINATION: VITAL SIGNS: Temperature 99.7. Heart rate 82. Blood pressure 161/72. Respirations 20. O2 saturation 95% on 3 liters nasal cannula. GENERAL: This is a 79-year-old obese male patient who is lying in his hospital bed. He is in moderate respiratory distress. HEENT: Normocephalic, atraumatic. Pupils are equal and reactive. Oropharynx is clear. NECK: Supple without mass. There is no discernible JVD, but it is difficult to assess at this time. RESPIRATORY: Bilateral crackles throughout and diminished at the bases. He is slightly tachypneic. CHEST: There is equal rise and fall of the chest with inspiration and expiration. CARDIOVASCULAR: Regular rate and rhythm. GASTROINTESTINAL: Abdomen is large, rounded. It is nontender. Bowel sounds are positive. EXTREMITIES: 2+ bilateral extremity edema. NEUROLOGIC: Awake, alert and oriented times three. Cranial nerves II-XII are grossly intact as tested. SKIN: Warm and dry. LABORATORY: Labs and films are as per history of present illness. IMPRESSION: 1. Congestive heart failure with acute exacerbation, diastolic and systolic in etiology with ejection fraction 35-40% per echocardiogram in June of 2019. 2. Admission for respiratory symptoms that are at high risk for COVID-19. Testing is pending. He is in droplet isolation. 3. Acute on chronic renal failure. Baseline creatinine is 3.2 to 3.6. His admission creatinine was 4.26. 4. Anemic of chronic disease. 5. Diabetes mellitus, type 2, poorly controlled. 6. Chronic low back the pain. PLAN: The patient has been placed in observation in the hospital. I have initiated the CHF guidelines and he will have Lasix IV twice daily. I will repeat his lab and chest x-ray in the morning. He has a Browne catheter and that will need to be removed within the next 48 hours. We will also monitor his renal function. I will restart his home medications as soon as they are verified. I have typed and crossed him for 2 units of packed red blood cells. I have started him on sliding scale insulin protocol. He will have Lovenox for DVT prophylaxis. We are awaiting his COVID-19 testing and he is in isolation at this time. We will continue to monitor the patient closely and follow as needed. #[id number] [facility]
[2019-11-08] MEDS ORDERED: NITROGLYCERIN 0.4 MG 25 EA TAB SL PRN (14:05)
[2019-11-08] MEDS ORDERED: SODIUM CHLORIDE 0.9% (FLUSH) 10 ML SYG IV PRN (14:05)
[2019-11-08] MEDS ORDERED: ONDANSETRON INJ 4 MG/2 ML VIAL IV PRN (14:05)
[2019-11-08] MEDS ORDERED: DEXTROSE 50% 25 GM/50 ML SYG IV PRN (14:14)
[2019-11-08] MEDS ORDERED: GLUCAGON INJ 1 MG VIAL SUBCU PRN (14:14)
[2019-11-08] MEDS ORDERED: diphenhydrAMINE HCL 50 MG/ML VIAL IV ONE (14:14)
[2019-11-08] MEDS ORDERED: ACETAMINOPHEN 325 MG TAB PO ONE (14:14)
[2019-11-08] MEDS ORDERED: SODIUM CHLORIDE 0.9% 500ML 500 ML IVS SCH (14:30)
[2019-11-08] MEDS: ALPRAZolam 0.5 MG TAB PO PRN ×2 (15:00→20:57)
[2019-11-08] MEDS: INSULIN LISPRO 100 UNITS/ML PEN SUBCU SCH ×2 (16:54→20:56)
[2019-11-08] MEDS: IV SET AND CAP CHANGE INJ INJ SCH (17:24)
[2019-11-08] MEDS: FUROSEMIDE INJ 40 MG/4 ML VIAL IV SCH (17:24)
[2019-11-08] MEDS ORDERED: TAMSULOSIN 0.4 MG CAP ONE (18:40)
[2019-11-08] MEDS ORDERED: MEMANTINE 10 MG TAB ONE (18:40)
[2019-11-08] MEDS ORDERED: ATORVASTATIN 20 MG TAB PO ONE (18:41)
[2019-11-08] MEDS ORDERED: ENOXAPARIN SODIUM 30 MG/0.3 ML SYG SUBCU ONE (18:41)
[2019-11-08] MEDS ORDERED: CLOPIDOGREL 75 MG TAB ONE (18:41)
[2019-11-08] MEDS ORDERED: SERTRALINE HCL 50 MG TAB ONE (18:41)
[2019-11-08] MEDS ORDERED: METOPROLOL TARTRATE 25 MG TAB ONE (18:41)
[2019-11-08] MEDS: MEMANTINE 10 MG TAB PO SCH (20:18)
[2019-11-08] MEDS: METOPROLOL TARTRATE 25 MG TAB PO SCH (20:18)
[2019-11-08] MEDS: TAMSULOSIN 0.4 MG CAP PO SCH (20:18)
[2019-11-08] MEDS: CLOPIDOGREL 75 MG TAB PO SCH (20:18)
[2019-11-08] MEDS: SERTRALINE HCL 50 MG TAB PO SCH (20:18)
[2019-11-08] MEDS: ENOXAPARIN SODIUM 30 MG/0.3 ML SYG SUBCU SCH (20:19)
[2019-11-08] MEDS: ATORVASTATIN 20 MG TAB PO SCH (20:19)
[2019-11-08] MEDS ORDERED: NON-FORMULARY MEDICATION 1 EA MIS (Memantine Hcl [Namenda] 5 MG) PO SCH (21:00)
[2019-11-08] MEDS ORDERED: NON-FORMULARY MEDICATION 1 EA MIS (Atorvastatin Calcium [Lipitor] 40 MG) PO SCH (21:00)
[2019-11-08] MEDS ORDERED: IPRATROPIUM/ALBUTEROL 3 ML VIAL NEB ONE (23:37)
[2019-11-08] MEDS ORDERED: FUROSEMIDE INJ 100 MG/10 ML VIAL ONE (23:38)
[2019-11-08] MEDS ORDERED: ALBUTEROL SULFATE 2.5 MG/3 ML VIAL NEB PRN (23:39)
[2019-11-08] MEDS ORDERED: FUROSEMIDE INJ 100 MG/10 ML VIAL IV ONE (23:40)
[2019-11-09] MEDS: IPRATROPIUM/ALBUTEROL 3 ML VIAL NEB SCH ×5 (00:05→20:20)
--- NOTE | 2019-11-09 07:13 | RAD ---
EXAM: XR Chest, 1 View CLINICAL HISTORY: The patient is 79 years old and is Male; CHF TECHNIQUE: Frontal view of the chest. COMPARISON: Chest radiograph from 11/08/2019 FINDINGS: LIMITATIONS: The right costophrenic angle is incompletely imaged. LUNGS: Mild right basilar opacity again demonstrated. This is similar to the prior exam. Pulmonary vascular congestion also appears unchanged. PLEURAL SPACE: No significant pleural effusion. No pneumothorax. HEART: Stable enlargement of the cardiac silhouette. MEDIASTINUM: Unremarkable. BONES/JOINTS: The bones are unchanged. UPPER ABDOMEN: Apparent mild elevation of the right hemidiaphragm. IMPRESSION: 1. Mild right basilar opacity suggesting atelectasis. Pneumonia not excluded. This is not significantly changed. 2. Enlarged cardiac silhouette and pulmonary vascular congestion again demonstrated. Electronically signed by: Anika Stewart MD 11/09/2019 7:12 AM CDT
[2019-11-09] MEDS: ACETAMINOPHEN 325 MG TAB PO PRN ×2 (09:28→20:18)
[2019-11-09] MEDS: METOPROLOL TARTRATE 25 MG TAB PO SCH ×2 (09:29→20:20)
[2019-11-09] MEDS: FUROSEMIDE INJ 40 MG/4 ML VIAL IV SCH (09:29)
[2019-11-09] MEDS: SERTRALINE HCL 50 MG TAB PO SCH ×2 (09:29→20:19)
[2019-11-09] MEDS: INSULIN GLARGINE 70 UNIT SC SCH (09:30)
[2019-11-09] MEDS: INSULIN LISPRO 100 UNITS/ML PEN SUBCU SCH ×4 (09:31→20:38)
[2019-11-09] MEDS ORDERED: SODIUM CHLORIDE 0.45% 1000ML 1,000 ML IVS PRN (09:57)
[2019-11-09] MEDS ORDERED: cefTRIAXone SODIUM 1 GM VIAL ONE (11:25)
[2019-11-09] MEDS ORDERED: SODIUM CHL 0.9% 50ML MIN-BAG+ 50 ML IVPB ONE (11:25)
[2019-11-09] MEDS: AZITHROMYCIN 250 MG TAB PO SCH (11:41)
[2019-11-09] MEDS: cefTRIAXone SODIUM 1 GM in SODIUM CHL 0.9% 50ML MIN-BAG+ 50 ML IVPB SCH (11:42)
[2019-11-09] MEDS: NITROGLYCERIN 0.4 MG/HR PATCH TOP SCH (15:45)
--- NOTE | 2019-11-09 18:46 | PN ---
SUPERVISING PHYSICIAN: Sarath Queen MD DATE: 11/09/19 SUBJECTIVE: The patient is currently on a BiPAP. He had an episode of desaturation and respiratory distress last night. He did do well with initiation of BiPAP. This morning he is a little bit more lethargic than normal. He has been afebrile. Browne catheter remains in place. I did talk to Dr. Celis in regards to the patient's plan of care. Last night, he did get 2 units of packed red blood cells. OBJECTIVE: VITAL SIGNS: Temperature 97.8. Pulse 51. Blood pressure 130/64. Respirations 22. Saturation 95% on BiPAP at 45% FIO2. I&Os show negative balance of 1360. Weight 170.9 kg. GENERAL: The patient appears to be resting comfortably on BiPAP. He is little lethargic, but will awaken to verbal stimuli and follow basic commands, but cannot tolerate off BiPAP for extended period of time. He is not in respiratory distress. CHEST: Lung sounds are diminished towards the bases. No obvious rales or rhonchi are noted. No wheezing. HEART: Regular rate and rhythm. ABDOMEN: Soft, nontender. Positive bowel sounds. EXTREMITIES: Bilateral upper and lower extremities 1+ edema. NEUROLOGIC: No obvious neurological motor deficits noted, but he is a little lethargic. He will awaken to verbal command and follow basic requests on assessment. SKIN: Warm, pink and dry. LABORATORY: White count 9,400, hemoglobin up to 10, hematocrit 30.2 after 2 units packed red blood cells. Platelet count 153,000. Blood gas analysis this afternoon shows pH 7.43, pO2 73, pCO2 52, saturation 96% on 45% FIO2 on BiPAP. Chemistries showed normal potassium, sodium. BUN 74, creatinine 4.7. Ammonia 27, lactic acid 0.8. RADIOLOGY: Chest x-ray this morning per radiologic interpretation showed right mild basilar opacity suggesting atelectasis with pneumonia not be excluded. There are no significant changes. Enlarged cardiac silhouette and pulmonary vascular still noted per radiologic interpretation. ASSESSMENT: 1. Acute decompensated heart failure with ejection fraction 35-40% in June of 2019. 2. Acute respiratory failure requiring non-invasive ventilatory support in the form of BiPAP with the patient on 45% FIO2. 3. Acute on chronic renal failure. 4. COVID-19 testing pending. 5. Anemic of chronic illness secondary to renal failure with recent transfusion of 2 units of packed red blood cells. 6. Diabetes mellitus, type 2, poorly controlled. 7. Chronic low back the pain. PLAN: The patient has been changed to full inpatient admission given the fact he is on BiPAP and requiring 45% FIO2. He does have Browne catheter in place. This will remain in place until we can stabilize him a little bit better. We talked to Dr. Celis in regards to his renal function and he wants to hold any additional Lasix today as well as start him on some low IV fluids. I have started him on half normal saline at 70 an hour and we will watch his I&Os closely. He remains on sliding per protocol. He is also on Lovenox for DVT prophylaxis. COVID-19 testing is pending. He remains in isolation. We will work to titrate FIO2 down to get him on room air hopefully in the form of nasal cannula. Until then, we will continue to utilize BiPAP. I anticipate his length of stay to be least another 2 to 3 days. Until the patient can transition to outpatient management, we will continue to monitor and treat as needed. #[id number] [facility]
[2019-11-09] MEDS: ALPRAZolam 0.5 MG TAB PO PRN (20:10)
[2019-11-09] MEDS: MEMANTINE 10 MG TAB PO SCH (20:19)
[2019-11-09] MEDS: ATORVASTATIN 20 MG TAB PO SCH (20:19)
[2019-11-09] MEDS: CLOPIDOGREL 75 MG TAB PO SCH (20:20)
[2019-11-09] MEDS: ENOXAPARIN SODIUM 30 MG/0.3 ML SYG SUBCU SCH (20:20)
[2019-11-09] MEDS: TAMSULOSIN 0.4 MG CAP PO SCH (20:20)
[2019-11-09] MEDS ORDERED: FUROSEMIDE INJ 100 MG/10 ML VIAL IV ONE (23:40)
[2019-11-10] MEDS: ACETAMINOPHEN 325 MG TAB PO PRN ×2 (04:16→20:54)
[2019-11-10] MEDS: ALPRAZolam 0.5 MG TAB PO PRN (04:20)
--- NOTE | 2019-11-10 07:25 | RAD ---
EXAM: XR Chest, 1 View CLINICAL HISTORY: The patient is 79 years old and is Male; CHF exc TECHNIQUE: Frontal view of the chest. COMPARISON: Chest radiograph from 11/09/2019 FINDINGS: LUNGS: Mild diffuse interstitial prominence is unchanged. No focal consolidation visualized on this exam. PLEURAL SPACE: No significant pleural effusion. No pneumothorax. HEART: Stable enlargement of the cardiac silhouette. MEDIASTINUM: Unremarkable. BONES/JOINTS: Degenerative changes of the line. IMPRESSION: Unchanged mild diffuse interstitial prominence, which may be related to interstitial edema. Electronically signed by: Anika Stewart MD 11/10/2019 7:24 AM CDT
[2019-11-10] MEDS: INSULIN LISPRO 100 UNITS/ML PEN SUBCU SCH ×4 (07:57→21:03)
[2019-11-10] MEDS: IPRATROPIUM/ALBUTEROL 3 ML VIAL NEB SCH ×4 (08:15→19:30)
[2019-11-10] MEDS ORDERED: SODIUM CHL 0.9% 50ML MIN-BAG+ 50 ML IVPB ONE (09:05)
[2019-11-10] MEDS ORDERED: cefTRIAXone SODIUM 1 GM VIAL ONE (09:06)
[2019-11-10] MEDS ORDERED: ALBUMIN 25 GM in PREMIX BOTTLE 2 BOTTLE IVPB ONE (10:00)
[2019-11-10] MEDS ORDERED: ALBUMIN 100 ML IVPB ONE (10:01)
[2019-11-10] MEDS: INSULIN GLARGINE 70 UNIT SC SCH (10:17)
[2019-11-10] MEDS: AZITHROMYCIN 250 MG TAB PO SCH (10:35)
[2019-11-10] MEDS: METOPROLOL TARTRATE 25 MG TAB PO SCH ×2 (10:35→20:55)
[2019-11-10] MEDS: SERTRALINE HCL 50 MG TAB PO SCH ×2 (10:35→20:55)
[2019-11-10] MEDS: LISINOPRIL 5 MG TAB PO SCH (10:36)
[2019-11-10] MEDS: cefTRIAXone SODIUM 1 GM in SODIUM CHL 0.9% 50ML MIN-BAG+ 50 ML IVPB SCH (10:37)
[2019-11-10] MEDS: SODIUM CHLORIDE 0.9% 1000ML 1,000 ML IVS PRN (10:39)
--- NOTE | 2019-11-10 13:33 | PN ---
SUPERVISING PHYSICIAN: Sarath Queen MD DATE: 11/10/19 SUBJECTIVE: The patient seems to be doing better today. He has diuresed quite a bit and dropped his weight some. He does not appear quite as edematous. He has been tolerating his BiPAP although he is till requiring 45% FIO2. He is more alert this morning despite getting some Ativan last night for some anxiety. OBJECTIVE: VITAL SIGNS: Temperature 97.7. Pulse 69. Blood pressure 162/72. Respirations 18. Saturation 99% on 45% FIO2. GENERAL: The patient seems to be resting comfortably, currently using BiPAP. He does not look to be in any distress. He is sleepy, but easily aroused and remains alert. CHEST: Lung sounds continue to be diminished towards the bases. No obvious rales or rhonchi are noted. No wheezing. HEART: Regular rate and rhythm. ABDOMEN: Soft, nontender. Positive bowel sounds. EXTREMITIES: Without edema, both upper and lower extremities today. NEUROLOGIC: He is sleepy, but much more alert than yesterday. He is wearing BiPAP. He is follows basic commands. He does not have any focal motor neuro deficits. SKIN: Warm, pink and dry. LABORATORY: Hemoglobin 9.2, hematocrit 27.6. Chemistries show normal electrolytes today with BUN 70, creatinine down to 4.56. Blood sugars remain between 110 and 120. RADIOLOGY: Repeat chest x-ray this morning per radiologic interpretation of single view chest showed unchanged mild diffuse interstitial prominence, which may be related to interstitial edema. ASSESSMENT: 1. Acute decompensated heart failure with ejection fraction 35-40% in June of 2019, stable with slight improvement. 2. Questionable community acquired pneumonia, unable to complete rule out due to underlying congestive heart failure. 3. Acute respiratory failure continuing to require non-invasive ventilatory support in the for of BiPAP with the patient on 45% FIO2, with concerns for developing community acquired pneumonia further complication #1. 4. Acute on chronic renal failure, showing some slight improvement with treatment. 5. COVID-19 testing pending. 6. Anemic of chronic illness complicated by chronic renal failure, receiving 2 units of packed red blood cells on current admission. 7. Diabetes mellitus, type 2, poorly controlled. 8. Chronic low back the pain. PLAN: I did call and discuss the case with Dr. Celis. He feels like we need to hold the Lasix again for 24 hours and continue with some IV fluids, normal saline at 70 an hour as well as try 25 grams albumin once and see if we can push the fluids back in intravascularly and continue to diurese given the amount of fluid spacing. He does remain on Lovenox per protocol. He is on sliding insulin per protocol. His medications have been resumed. We will continue to try to titrate him off BiPAP as possible. Until the patient can transition to outpatient management, we will continue with treatment for CHF exacerbation and questionable community acquired pneumonia with the patient remaining on antibiotics. Until then, we will continue to monitor and treat as needed. #[id number] [facility]
[2019-11-10] MEDS: NITROGLYCERIN 0.4 MG/HR PATCH TOP SCH (14:33)
[2019-11-10] MEDS: CLOPIDOGREL 75 MG TAB PO SCH (20:55)
[2019-11-10] MEDS: ENOXAPARIN SODIUM 30 MG/0.3 ML SYG SUBCU SCH (20:55)
[2019-11-10] MEDS: TAMSULOSIN 0.4 MG CAP PO SCH (20:55)
[2019-11-10] MEDS: MEMANTINE 10 MG TAB PO SCH (20:55)
[2019-11-10] MEDS: ATORVASTATIN 20 MG TAB PO SCH (20:55)
[2019-11-11] MEDS: SODIUM CHLORIDE 0.9% 1000ML 1,000 ML IVS PRN ×2 (02:17→18:14)
[2019-11-11] MEDS: INSULIN LISPRO 100 UNITS/ML PEN SUBCU SCH ×4 (07:14→22:21)
[2019-11-11] MEDS: IPRATROPIUM/ALBUTEROL 3 ML VIAL NEB SCH ×4 (08:42→20:40)
[2019-11-11] MEDS ORDERED: SODIUM CHL 0.9% 50ML MIN-BAG+ 50 ML IVPB ONE (09:17)
[2019-11-11] MEDS ORDERED: cefTRIAXone SODIUM 1 GM VIAL ONE (09:17)
[2019-11-11] MEDS: INSULIN GLARGINE 70 UNIT SC SCH (09:20)
[2019-11-11] MEDS: cefTRIAXone SODIUM 1 GM in SODIUM CHL 0.9% 50ML MIN-BAG+ 50 ML IVPB SCH (09:23)
[2019-11-11] MEDS: AZITHROMYCIN 250 MG TAB PO SCH (09:23)
[2019-11-11] MEDS: SERTRALINE HCL 50 MG TAB PO SCH ×2 (09:23→20:32)
[2019-11-11] MEDS: METOPROLOL TARTRATE 25 MG TAB PO SCH ×2 (09:23→20:45)
[2019-11-11] MEDS: LISINOPRIL 5 MG TAB PO SCH (09:23)
[2019-11-11] MEDS: ACETAMINOPHEN 325 MG TAB PO PRN (09:37)
[2019-11-11] MEDS: ALPRAZolam 0.5 MG TAB PO PRN ×2 (09:37→20:40)
[2019-11-11] MEDS: HYDROcodone 10MG/APAP 325MG 1 EA TAB PO PRN ×2 (11:34→20:06)
--- NOTE | 2019-11-11 13:43 | PN ---
SUPERVISING PHYSICIAN: Sarath Queen MD DATE: 11/11/19 SUBJECTIVE: The patient is now out of isolation as his COVID-19 testing was negative. He is tolerating nasal cannula. He has had no further complaints. We will work on getting his urine catheter out today, if not in the morning as we are still monitoring his I&Os very closely. I just talked with Dr. Celis and he is in agreement with the plan of care at this point to see what he is going to do as far as his creatinine levels returning to baseline. We are holding Lasix today and continuing with slow IV fluids. OBJECTIVE: VITAL SIGNS: He remains afebrile. Temperature 98. Pulse 76. Blood pressure 124/60. Respirations 18. Saturation 95% on 2 liter nasal cannula. I&O: still showing a negative balance at 80. Overall, he has a negative balance of 8.3 liters, although weight is showing to be stable at 117.0 kg. GENERAL: The patient is resting comfortably. He is alert, visiting with his , showing to be in no acute distress. . CHEST: Lung sounds are improved, just slightly diminished towards the bases. No rales or rhonchi. HEART: Regular rate and rhythm. ABDOMEN: Obese, soft, nontender. Positive bowel sounds. EXTREMITIES: Upper and lower extremities without edema. . NEUROLOGIC: He is alert and oriented x3. LABORATORY: Hemoglobin 8.9, hematocrit 27.3. Chemistries show normal electrolytes with creatinine 4.24 which is returning to baseline levels. Blood sugars remain stable between 105 and 156. Phosphorous is elevated at 5.6, magnesium 3.8. ASSESSMENT: 1. Acute decompensated heart failure with ejection fraction 35-40% in June of 2019, stable, improving and showing to be stabilizing. . 2. Community acquired pneumonia likely, unable to fully rule out due to underlying congestive heart failure though showing improvement, now tolerating nasal cannula, and currently on parenteral antibiotics. 3. Acute respiratory failure initially requiring BIPAP, now on nasal cannula secondary to #1, improving. 4. Acute on chronic renal failure, continuing to show slight improvement with low fluids and holding diuretics. 5. Negative for COVID-19/ 6. Chronic anemia secondary to underlying renal failure, requiring 2 units of packed red blood cells on current admission. 7. Diabetes mellitus, type 2, poorly controlled. 8. Chronic low back the pain. PLAN: Will continue with current plan at this point with holding his Lasix and continuing with just low IV fluids, normal saline at 70 an hour. I did discuss the case with Dr. Celis. He feels like we can continue with his current plan at this point and probably be able to discharge him tomorrow as long as he is showing to be stable and he can continue with outpatient management and followup with Dr. Celis. He is on Lovenox per protocol. He remains on sliding insulin per protocol. Until we can transition him to outpatient management which will hopefully be tomorrow, we will continue to monitor and treat as needed #[id number] [facility]
[2019-11-11] MEDS: IV SET AND CAP CHANGE INJ INJ SCH (15:11)
[2019-11-11] MEDS: NITROGLYCERIN 0.4 MG/HR PATCH TOP SCH ×2 (15:11→15:49)
[2019-11-11] MEDS: ENOXAPARIN SODIUM 30 MG/0.3 ML SYG SUBCU SCH (20:30)
[2019-11-11] MEDS: MEMANTINE 10 MG TAB PO SCH (20:31)
[2019-11-11] MEDS: ATORVASTATIN 20 MG TAB PO SCH (20:32)
[2019-11-11] MEDS: CLOPIDOGREL 75 MG TAB PO SCH (20:32)
[2019-11-11] MEDS: TAMSULOSIN 0.4 MG CAP PO SCH (20:32)
[2019-11-12] MEDS ORDERED: ALUM & MAG HYDROX-SIMETHICONE 30 ML UD PO ONE (01:30)
--- NOTE | 2019-11-12 06:20 | RAD ---
EXAM: XR Chest, 1 View CLINICAL HISTORY: The patient is 79 years old and is Male; chf vs pneumonia TECHNIQUE: Frontal view of the chest. COMPARISON: Chest radiograph November 10, 2019 FINDINGS: LUNGS: Mild diffuse interstitial opacities are present. Patchy opacity in the right lower lobe has increased. PLEURAL SPACE: Unremarkable. No pneumothorax. HEART: The cardiac silhouette remains enlarged. MEDIASTINUM: Unremarkable. BONES/JOINTS: There are degenerative changes of the bones. IMPRESSION: 1. Cardiomegaly with findings suggestive of vascular congestion. 2. Increased right lower lobe infiltrate. Electronically signed by: Mariana Son MD 11/12/2019 6:18 AM CDT
[2019-11-12] MEDS: HYDROcodone 10MG/APAP 325MG 1 EA TAB PO PRN ×2 (06:25→12:54)
[2019-11-12] MEDS ORDERED: SODIUM CHL 0.9% 50ML MIN-BAG+ 50 ML IVPB ONE (07:15)
[2019-11-12] MEDS ORDERED: cefTRIAXone SODIUM 1 GM VIAL ONE (07:16)
[2019-11-12] MEDS: INSULIN LISPRO 100 UNITS/ML PEN SUBCU SCH ×2 (07:37→11:42)
[2019-11-12] MEDS: IPRATROPIUM/ALBUTEROL 3 ML VIAL NEB SCH ×2 (07:45→12:45)
[2019-11-12] MEDS: INSULIN GLARGINE 70 UNIT SC SCH (08:07)
[2019-11-12] MEDS: LISINOPRIL 5 MG TAB PO SCH (08:07)
[2019-11-12] MEDS: METOPROLOL TARTRATE 25 MG TAB PO SCH (08:07)
[2019-11-12] MEDS: SERTRALINE HCL 50 MG TAB PO SCH (08:07)
[2019-11-12] MEDS: SODIUM CHLORIDE 0.9% 1000ML 1,000 ML IVS PRN (08:09)
[2019-11-12 09:34] VITALS: O2SAT 98
[2019-11-12] MEDS: cefTRIAXone SODIUM 1 GM in SODIUM CHL 0.9% 50ML MIN-BAG+ 50 ML IVPB SCH (09:44)
[2019-11-12] MEDS: AZITHROMYCIN 250 MG TAB PO SCH (09:45)
[2019-11-12 13:29] VITALS: BP 147/70; TEMP 98.1
--- NOTE | 2019-11-14 08:50 | DS ---
SUPERVISING PHYSICIAN: Sarath Queen MD ADMISSION DIAGNOSIS: 1. Congestive heart failure with acute exacerbation, diastolic and systolic in etiology with ejection fraction 35-40% per echocardiogram in June of 2019. 2. Admission for respiratory symptoms that are at high risk for COVID-19. Testing is pending. He is in droplet isolation. 3. Acute on chronic renal failure. Baseline creatinine is 3.2 to 3.6. His admission creatinine was 4.26. 4. Anemic of chronic disease. 5. Diabetes mellitus, type 2, poorly controlled. 6. Chronic low back the pain. DISCHARGE DIAGNOSIS: 1. Acute decompensated heart failure with ejection fraction 35-40% in June of 2019, stable, improving and showing to be stabilizing. 2. Community acquired pneumonia complicated by congestive heart failure, currently being discharged on nasal cannula with the patient chronically on O2 and showing to be stable. 3. Acute respiratory failure that required BIPAP with the patient transitioned to nasal cannula prior to discharge. 4. Acute on chronic renal failure, continuing to show improvement, needing followup with nephrology. 5. Negative COVID-19. 6. Chronic anemia secondary to renal failure, receiving 2 units of packed red blood cells on current admission, stable. 7. Diabetes mellitus, type 2, poorly controlled. 8. Chronic low back the pain. REASON FOR HOSPITALIZATION: This is a 79-year-old male patient who presented to the Emergency Room that has had about a 3 to 4 day complaint of increasing shortness of breath with intermittent chest pain as well as swelling in his legs that is more than usual. There has been no fever or cough, nausea or vomiting and he has been quite short of breath. He has a significant history of congestive heart failure. His admitting vital signs showed temperature 99.2, heart rate 68, blood pressure 131/96, respiratory rate 24, O2 saturation 98% on 2 liters nasal cannula. Lab studies and showed WBC 9,700. There was no shift on his differential. Hemoglobin 7.8, hematocrit 23.5. Sodium 139, potassium 5.3, chloride 97, carbon dioxide 33, BUN 72, creatinine 4.26. Baseline creatinine is about 3.2. Magnesium 4, BNP 655. Urinalysis shows urine pH 8.5, 100 of urine protein and a trace of intact urine blood. Chest x-ray shows enlarged cardiac silhouette with bilateral pulmonary vascular congestion, findings concerning for congestive heart failure and right lower lobe airspace opacity could represent atelectasis and/or pulmonary edema. He was given 40 mg of Lasix in the ER and I was called for hospital admission. LABORATORY: Final hemoglobin and hematocrit on discharge were 8.9 and 27.0. He was admitted with hemoglobin 7.8 and hematocrit 23.5. He did receive 2 units of packed red blood cells. Differential was resolving and last white count was 9,400. Blood gas analysis on admission showed pH 7.245 with pO2 255, pCO2 76 on room air with bicarb 32.8. After BiPAP and titrated back to nasal cannula on 2 liters, pH 7.44, pO2 73, pCO2 52, saturation 95% with bicarb 35.8. Final chemistries on discharge showed normal electrolytes. Creatinine was down to 3.82. Blood sugars were stable between 140 and 218. Calcium 7.8 corrected to 8.2 due to hypoalbuminemia. Urinalysis showed a trace intact blood, otherwise within normal limits. MICROBIOLOGY: COVID-19 negative per testing. [employer] testing was negative. RADIOLOGY: He had multiple chest x-rays. Final chest x-ray on date of discharge showed cardiomegaly with findings suggestive of vascular congestion with increased right lower lobe infiltrate. HOSPITAL COURSE: Mr. Sorto was admitted for both acute decompensated heart failure complicated by right sided or possible bilateral pneumonia initially. He did have acute respiratory distress and required placement on BiPAP. He did well. It took him about three days to be titrated back to a nasal cannula. He was diuresed very aggressively initially on admission and was showing a deficit of around 9 liters. I did consult with Dr. Celis via phone and we held his Lasix for the remainder of his admission and gave him just low volume infusion of fluids as well as 25 grams of albumin. He responded well to treatment. He was diuresing and showed resolution of his shortness of breath. He was no longer requiring BiPAP and no longer showing edematous state and was ambulating on nasal cannula without any complications. He was treated with antibiotic therapy for the underlying pneumonia with Rocephin and azithromycin and transitioned to oral cefdinir prior to discharge. He was started on lisinopril while here in the hospital at 2.5 mg daily and again was clinically stable enough to continue with outpatient management. DISCHARGE ASSESSMENT: VITAL SIGNS: Afebrile at 98.1. Pulse 67. Blood pressure 147/70. Respirations 16. Saturation 98% on 2 liters nasal cannula. GENERAL: The patient was in no acute distress. He was alert. LUNGS: Fairly clear, just diminished towards the bases. HEART: Regular rate and rhythm. ABDOMEN: Obese, but soft, nontender, positive bowel sounds. EXTREMITIES: Without edema. NEUROLOGIC: Alert and oriented x3. PLAN: Mr. Sorto was discharged with instructions to hold his Lasix for two to three days until he was back to his right weight and then resume as previous. He was given instructions should he show any return of edema or any shortness of breath or concerns for acute weight gain that he was to resume his Lasix and notify his primary care provider, Dr. Fernandez, as well as Dr. Celis. He will followup with Dr. Celis as he has missed his last two appointments over the last year. His creatinine was returning to baseline levels. Diet on discharge was diabetic diet as tolerated. Activity to increase as tolerated and wear oxygen as instructed. Medications on discharge included prescription for cefdinir 300 mg b.i.d. for 5 days, no refills. All other medications including his Lasix were resumed with holding his Lasix at least two to three days before resuming. He was to return to the Emergency Department for any worsening symptoms or call Dr. Fernandez or Dr. Celis's office. CONDITION ON DISCHARGE: Stable and improved. DISPOSITION: The patient was discharged home. #[id number] [facility]
[2019-11-15] MEDS ORDERED: NON-FORMULARY MEDICATION 1 EA MIS (Dulaglutide [Trulicity] 0.75 MG) SC SCH (09:00)
== END 2019-11-12 14:15 | disposition home or self-care (01) | DRG 291 ==
LOC: ER 11:26 → UNDOADMOB 13:50 → OBSVTOIN 13:50 → MS 13:50 → INTOOBSV 13:50 → MS 11-10 19:14 → OBSVTOIN 11-10 19:14
PROVIDERS: ADMIT Nurse Practitioner Acute Care; ATTEND Nurse Practitioner Family
PROC: 30233N1 Transfusion of Nonautologous Red Blood Cells into Peripheral Vein, Percutaneous Approach (ICD-10-PCS; principal; 2019-11-08)
DX: I13.0 Hypertensive heart and chronic kidney disease with heart failure and stage 1 through stage 4 chronic kidney disease, or unspecified chronic kidney disease (principal); I50.43 Acute on chronic combined systolic (congestive) and diastolic (congestive) heart failure; J18.9 Pneumonia, unspecified organism; N17.9 Acute kidney failure, unspecified; J96.00 Acute respiratory failure, unspecified whether with hypoxia or hypercapnia; N18.9 Chronic kidney disease, unspecified; D63.1 Anemia in chronic kidney disease; E11.22 Type 2 diabetes mellitus with diabetic chronic kidney disease; G89.29 Other chronic pain; M54.5 Low back pain; F03.90 Unspecified dementia, unspecified severity, without behavioral disturbance, psychotic disturbance, mood disturbance, and anxiety; E78.5 Hyperlipidemia, unspecified; N40.0 Benign prostatic hyperplasia without lower urinary tract symptoms; F41.9 Anxiety disorder, unspecified; I25.2 Old myocardial infarction; F32.9 Major depressive disorder, single episode, unspecified; E66.9 Obesity, unspecified; Z96.641 Presence of right artificial hip joint; Z88.5 Allergy status to narcotic agent; Z87.891 Personal history of nicotine dependence; Z79.4 Long term (current) use of insulin; Z79.02 Long term (current) use of antithrombotics/antiplatelets; Z79.891 Long term (current) use of opiate analgesic; Z79.899 Other long term (current) drug therapy

== ENCOUNTER → 2019-11-15 | Outpatient (CLI) | payer MEDICARE, OTHER | LOC: GMAE 13:47 | PROVIDERS: ATTEND Family Medicine | DX: I13.0 Hypertensive heart and chronic kidney disease with heart failure and stage 1 through stage 4 chronic kidney disease, or unspecified chronic kidney disease (principal); N18.9 Chronic kidney disease, unspecified ==

== ENCOUNTER 2020-06-10 23:06 | Emergency (ER) | payer MEDICARE, OTHER ==
[2020-06-10] MEDS ORDERED: ASPIRIN (CHEWABLE) 81 MG TAB PO ONE (23:07)
[2020-06-10] MEDS ORDERED: SODIUM CHLORIDE 0.9% (FLUSH) 10 ML SYG IV PRN (23:07)
--- NOTE | 2020-06-10 23:10 | ED.PDOC ---
History of Present Illness - General Time Seen by Provider: 06/10/20 23:06 Source: patient, RN notes reviewed, Vital Signs reviewed, EMS notes reviewed, EMS, old records - History of Present Illness Initial Comments: 79 yo male with hx of CAD, CHFrEF, CKD, COPD comes in via EMS with chest pain and shortness of breath. Patient was at home when he started complaining of chest pain. Shortness of breath worse with lying on his back improved with laying on his side. Per patient does not walk. Per EMS was able to transfer from chair to stretcher byself without difficulty. no fever, no cough. Wears 3 L of oxygen at home. Follows Dr. Orta for Cardiology and Dr. Celis for nephrology Allergies/Adverse Reactions: Allergies Morphine Adverse Reaction (Verified 06/26/19 13:16) Other Causes patient to be "Wild" Home Medications: Ambulatory Orders Clopidogrel Bisulfate [Plavix] 75 mg PO BEDTIME 06/25/15 Metoprolol Tartrate [Lopressor] 25 mg PO BID 06/25/15 Tamsulosin [Flomax] 0.4 mg PO BEDTIME 06/25/15 Dulaglutide [Trulicity] 0.75 mg SC WKLY 09/22/15 Atorvastatin Calcium [Lipitor] 40 mg PO BEDTIME 03/25/19 Insulin Glargine [Toujeo Solostar] 70 unit SC DAILY 03/25/19 ALPRAZolam [Xanax] 0.25 mg PO Q6HR PRN 04/22/19 Magnesium [Chelated Magnesium] 2 capsule PO BID 04/22/19 Furosemide [Lasix] 40 mg PO DAILY 06/26/19 Memantine HCl [Namenda] 5 mg PO BEDTIME 06/26/19 Hydrocodone-Acetaminophen [Hydrocodone Bitartrate/AC 10-325 mg] 1 tab PO PRN 11/08/19 Sertraline HCl [Zoloft] 50 mg PO BID 11/08/19 Cefdinir [Omnicef] 300 mg PO BID #10 cap 11/12/19 Lisinopril [Zestril] 2.5 mg PO DAILY #30 tab 11/12/19 Review of Systems - Review of Systems Constitutional: Denies: chills, fever, malaise EENTM: Denies: blurred vision, throat pain, throat swelling Respiratory: States: orthopnea, short of breath. Denies: cough Cardiology: States: chest pain, edema. Denies: palpitations Gastrointestinal/Abdominal: Denies: abdominal pain, diarrhea, nausea, vomiting Genitourinary: Denies: dysuria, frequency, hematuria Musculoskeletal: Denies: joint pain, joint swelling, muscle pain Skin: Denies: rash Neurological: Denies: headache, numbness, paresthesia, tingling, tremors, weakness Endocrine: Denies: unexplained weight gain, unexplained weight loss Hematologic/Lymphatic: Denies: blood clots, easy bleeding, easy bruising Past Medical History (General) - Patient Medical History Hx Seizures: No Hx Stroke: No Hx Dementia: Yes Hx Asthma: No Hx of COPD: Yes Hx Cardiac Disorders: Yes - [place] Hx Congestive Heart Failure: Yes Hx Pacemaker: No Hx Hypertension: Yes Hx Thyroid Disease: No Hx Diabetes: Yes Hx Gastroesophageal Reflux: No Hx Renal Disease: No Hx Cancer: No Hx of HIV: No Hx Hepatitis C: No Hx MRSA: No - Vaccination History Hx Tetanus, Diphtheria Vaccination: Yes Hx Influenza Vaccination: No Hx Pneumococcal Vaccination: Yes - Social History Hx Tobacco Use: Yes Hx Chewing Tobacco Use: No Hx Alcohol Use: No Hx Substance Use: No Hx Substance Use Treatment: No Hx Depression: No Hx Physical Abuse: No Hx Emotional Abuse: No Hx Suspected Abuse: No - Female History Patient : No Family Medical History - Family History Father Family History: Unknown Living Status: Hx Family Asthma: No Hx Family Congestive Heart Failure: No Hx Family Hypertension: Yes Hx Cardiac Disease: Yes Physical Exam - Physical Exam General Appearance: Alert, Comfortable, No apparent distress, Unkempt, Well Developed Eyes, Ears, Nose, Throat Exam: PERRL/EOMI, normal ENT inspection Neck: non-tender, full range of motion, supple, normal inspection Respiratory: chest non-tender, lungs clear, normal breath sounds, no respiratory distress, no accessory muscle use Cardiovascular/Chest: normal peripheral pulses, regular rate, rhythm, no gallop, no JVD, no murmur Peripheral Pulses: radial,right: 2+, radial,left: 2+ Gastrointestinal/Abdominal: normal bowel sounds, non tender, soft, no organomegaly, no pulsatile mass Rectal Exam: normal exam, normal rectal tone, heme positive stool Extremity: normal range of motion, non-tender, normal inspection, no pedal edema, no calf tenderness, normal capillary refill 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 Placed on home oxygen. CXR shows evidence of pulmonary congestion, will give nitropaste and lasix, Hgb 7.8, baseline 10-11. denies black or bloody bm. no abdominal pain. due to acute CHF exacerbation will give one unit of pRBCs. stool + for blood. The data reviewed when caring for this patient included: nurse notes, prior records, etc. The history and assessments from nurses notes were reviewed and considered, and the patient's home medication list was also reviewed and considered. My assessment and the results of testing completed here in the ED were discussed with the patient/family. All questions were answered, and they express understanding of my assessment and the plan. VSS. patient was transferred to [facility] in stable condition. Rita Lanier DO #[id number] - Results/Orders Results/Orders: 06/10/20 23:07 IV Care:Saline Lock per Protoc QSHIFT Telemetry ONCE Sodium Chloride 0.9% (Flush) [Saline Flush Syringe] 3 ml IV PRN PRN 06/10/20 23:15 EKG STAT 06/11/20 00:15 Transfuse Blood Products .PRN 06/11/20 01:38 PACKED CELLS,LR Stat TYPE AND SCREEN Stat Acetaminophen [Tylenol] 650 mg PO ONCE ONE 06/11/20 02:00 Sodium Chloride 0.9% 500Ml [NS 500ml] 500 ml IVS .KVO 06/11/20 09:00 Pulse Ox Daily Laboratory Results WBC 8.1 K/mm3 (4.8-10.8) 06/10/20 23:35 RBC 2.72 M/mm3 (4.70-6.10) L 06/10/20 23:35 Hgb 7.8 gm/dL (14.0-18.0) L* 06/10/20 23:35 Hct 23.2 % (42.0-52.0) L 06/10/20 23:35 MCV 85.4 fl (80.0-94.0) 06/10/20 23:35 MCH 28.8 pg (27.0-31.0) 06/10/20 23:35 MCHC 33.7 g/dL (33.0-37.0) 06/10/20 23:35 RDW 17.2 % (11.5-14.5) H 06/10/20 23:35 Plt Count 155 K/mm3 (130-400) 06/10/20 23:35 MPV 8.1 fl (7.40-10.4) 06/10/20 23:35 Absolute Neuts (auto) 6.30 K/uL (1.8-6.8) 06/10/20 23:35 Absolute Lymphs (auto) 0.70 K/uL (1.0-3.4) L 06/10/20 23:35 Absolute Monos (auto) 0.90 K/uL (0.2-0.8) H 06/10/20 23:35 Absolute Eos (auto) 0.10 K/uL (0.0-0.4) 06/10/20 23:35 Absolute Basos (auto) 0.10 K/uL (0.0-0.1) 06/10/20 23:35 Neutrophils % 78.1 % (42.0-78.0) H 06/10/20 23:35 Lymphocytes % 9.1 % (20.0-50.0) L 06/10/20 23:35 Monocytes % 10.6 % (2.0-9.0) H 06/10/20 23:35 Eosinophils % 1.5 % (1.0-5.0) 06/10/20 23:35 Basophils % 0.7 % (0.0-2.0) 06/10/20 23:35 PT 9.8 SECONDS (9.0-10.9) 06/10/20 23:35 INR < 1.00 (0.9-1.15) 06/10/20 23:35 PTT (SP) 25.4 SECONDS (21.8-31.6) 06/10/20 23:35 D-Dimer, Quantitative 581.0 ng/ml (131-400) H 06/10/20 23:35 Sodium 141 mmol/L (135-145) 06/10/20 23:35 Potassium 5.3 mmol/L (3.6-5.0) H 06/10/20 23:35 Chloride 100 mmol/L (101-111) L 06/10/20 23:35 Carbon Dioxide 31 mmol/L (21-31) 06/10/20 23:35 Anion Gap 15.3 (12-18) 06/10/20 23:35 BUN 97 mg/dL (7-18) H 06/10/20 23:35 Creatinine 5.30 mg/dL (0.6-1.3) H 06/10/20 23:35 BUN/Creatinine Ratio 18.3 (10-20) 06/10/20 23:35 Random Glucose 159 mg/dL (70-105) H 06/10/20 23:35 Serum Osmolality 314.7 mOsm/L (275-295) H 06/10/20 23:35 Calcium 7.6 mg/dL (8.4-10.2) L 06/10/20 23:35 Magnesium 4.7 mg/dL (1.8-2.5) H 06/10/20 23:35 Total Bilirubin 0.7 mg/dL (0.2-1.0) 06/10/20 23:35 Direct Bilirubin 0.1 mg/dL (0-0.2) 06/10/20 23:35 Indirect Bilirubin 0.6 mg/dL (0.2-0.8) 06/10/20 23:35 AST 19 IU/L (10-42) 06/10/20 23:35 ALT 20 IU/L (10-60) 06/10/20 23:35 Alkaline Phosphatase 104 IU/L (42-121) 06/10/20 23:35 Troponin I 0.04 ng/mL (0.01-0.05) 06/10/20 23:35 B-Natriuretic Peptide 884.0 pg/ml (0-100) H* 06/10/20 23:35 Serum Total Protein 6.6 gm/dL (6.4-8.2) 06/10/20 23:35 Albumin 3.3 g/dl (3.2-5.5) 06/10/20 23:35 Globulin 3.3 gm/dL (2.3-3.5) 06/10/20 23:35 Albumin/Globulin Ratio 1.0 (1.1-1.9) L 06/10/20 23:35 Urine Color Yellow (Yellow) 06/11/20 00:40 Urine Appearance Clear (Clear) 06/11/20 00:40 Urine pH 8.5 (4.5-7.8) H 06/11/20 00:40 Ur Specific [place] 1.020 (1.005-1.030) 06/11/20 00:40 Urine Protein 100 mg/dL H 06/11/20 00:40 Urine Glucose (UA) Negative mg/dL (Negative) 06/11/20 00:40 Urine Ketones Negative mg/dL (NEGATIVE) 06/11/20 00:40 Urine Blood Trace-lysed (Negative) H 06/11/20 00:40 Urine Nitrite Negative 06/11/20 00:40 Urine Bilirubin Negative (NEGATIVE) 06/11/20 00:40 Urine Urobilinogen 0.2 mg/dL (0.2-1.0) 06/11/20 00:40 Ur Leukocyte Esterase Negative (Negative) 06/11/20 00:40 Urine RBC 0-1 /hpf 06/11/20 00:40 Urine WBC 0 /hpf 06/11/20 00:40 Ur Epithelial Cells 0-1 /hpf 06/11/20 00:40 Urine Bacteria 0 06/11/20 00:40 Stool Occult Blood Positive (NEGATIVE) H 06/11/20 00:35 Urine Opiates Screen Positive ng/mL (2000) H 06/11/20 00:40 Urine Barbiturates Negative ng/mL (200) 06/11/20 00:40 Ur Phencyclidine Scrn Negative ng/mL (25) 06/11/20 00:40 U Amphetamin/Meth Scrn Negative ng/mL (1000) 06/11/20 00:40 U Benzodiazepines Scrn Negative ng/mL (200) 06/11/20 00:40 U Cocaine Metab Screen Negative ng/mL (300) 06/11/20 00:40 U Cannabinoids Screen Negative ng/mL (50) 06/11/20 00:40 - EKG/XRAY/CT EKG: Sinus Comments: LAD, RBBB, no acute ischemia. XRAY: chest - Consult/PCP Time Called: 01:20 Consult/PCP: Dr. Caballero - GI Departure - Departure Clinical Impression: Anemia of chronic disease, GI bleed not requiring more than 4 units of blood in 24 hours, ICU, or surgery Chronic kidney disease (CKD) Qualifiers: Chronic kidney disease stage: unspecified stage Qualified Code(s): N18.9 - Chronic kidney disease, unspecified Acute exacerbation of CHF (congestive heart failure) Qualifiers: Heart failure type: diastolic Qualified Code(s): I50.33 - Acute on chronic diastolic (congestive) heart failure Acute on chronic kidney failure Qualifiers: Acute renal failure type: unspecified Chronic kidney disease stage: unspecified stage Qualified Code(s): N17.9 - Acute kidney failure, unspecified Disposition: Transfer to Hospital Condition: Fair Referrals: MANASA REES MD [Primary Care Provider] - 1-2 Days Home Medications: Ambulatory Orders Clopidogrel Bisulfate [Plavix] 75 mg PO BEDTIME 06/25/15 Metoprolol Tartrate [Lopressor] 25 mg PO BID 06/25/15 Tamsulosin [Flomax] 0.4 mg PO BEDTIME 06/25/15 Dulaglutide [Trulicity] 0.75 mg SC WKLY 09/22/15 Atorvastatin Calcium [Lipitor] 40 mg PO BEDTIME 03/25/19 Insulin Glargine [Toujeo Solostar] 70 unit SC DAILY 03/25/19 ALPRAZolam [Xanax] 0.25 mg PO Q6HR PRN 04/22/19 Magnesium [Chelated Magnesium] 2 capsule PO BID 04/22/19 Furosemide [Lasix] 40 mg PO DAILY 06/26/19 Memantine HCl [Namenda] 5 mg PO BEDTIME 06/26/19 Hydrocodone-Acetaminophen [Hydrocodone Bitartrate/AC 10-325 mg] 1 tab PO PRN 11/08/19 Sertraline HCl [Zoloft] 50 mg PO BID 11/08/19 Cefdinir [Omnicef] 300 mg PO BID #10 cap 11/12/19 Lisinopril [Zestril] 2.5 mg PO DAILY #30 tab 11/12/19 Comments: Delay in dispo, unable to find beds for transfer. Decision To Admit - Decistion To Admit Decision to Admit Date: 06/11/20 Decision to Admit Time: 00:01 Transfer to Outside Facility - Transfer Information Decision to Transfer Date: 06/11/20 Decision to Transfer Time: 00:06 Reason for Transfer: specialized care not available Accepting Facility: [facility]
--- NOTE | 2020-06-10 23:24 | RAD ---
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 Prior films were compared. Lung volume is slightly decreased. Chronic elevation right hemidiaphragm with minimal compressive atelectatic changes. Mild diffuse perihilar increased interstitial density. The heart is prominent. Costophrenic angles are sharp. No areas of consolidation or masses are seen. Minimal degenerative changes both shoulders. IMPRESSION: CARDIOMEGALY. MILD PERIHILAR DENSITIES SUGGESTING THE POSSIBILITY OF PULMONARY VENOUS CONGESTION, SIMILAR TO PRIOR STUDY. Electronically signed by: Oleg Ch MD 06/10/2020 11:22 PM [employer] AIDE
[2020-06-11] MEDS ORDERED: NITROGLYCERIN 2% 1 GM UD TOP ONE (00:31)
[2020-06-11] MEDS ORDERED: FUROSEMIDE INJ 20 MG/2 ML VIAL IV ONE (00:32)
[2020-06-11] MEDS ORDERED: ACETAMINOPHEN 325 MG TAB PO ONE (01:38)
[2020-06-11] MEDS ORDERED: SODIUM CHLORIDE 0.9% 500ML 500 ML IVS SCH (02:00)
[2020-06-11 02:02] VITALS: O2SAT 100
[2020-06-11 03:04] VITALS: TEMP 98.2
[2020-06-11 03:40] VITALS: BP 124/58
== END 2020-06-11 03:25 | disposition short-term general hospital (02) ==
LOC: ER 23:06
DX: I50.33 Acute on chronic diastolic (congestive) heart failure (principal); N17.9 Acute kidney failure, unspecified; N18.9 Chronic kidney disease, unspecified; E11.22 Type 2 diabetes mellitus with diabetic chronic kidney disease; I13.0 Hypertensive heart and chronic kidney disease with heart failure and stage 1 through stage 4 chronic kidney disease, or unspecified chronic kidney disease; D63.1 Anemia in chronic kidney disease; K92.1 Melena; I25.10 Atherosclerotic heart disease of native coronary artery without angina pectoris; J44.9 Chronic obstructive pulmonary disease, unspecified; I25.2 Old myocardial infarction; F03.90 Unspecified dementia, unspecified severity, without behavioral disturbance, psychotic disturbance, mood disturbance, and anxiety; Z20.828 Contact with and (suspected) exposure to other viral communicable diseases; Z99.81 Dependence on supplemental oxygen; Z88.5 Allergy status to narcotic agent; Z79.899 Other long term (current) drug therapy; Z79.4 Long term (current) use of insulin; Z79.02 Long term (current) use of antithrombotics/antiplatelets; Z87.891 Personal history of nicotine dependence
CPT/HCPCS: 36415; 71045; 80048; 80053; 80076; 80307; 81001; 82270; 83735; 83880; 84484; 85025; 85379; 85610; 85730; 86850; 86900; 86901; 86922; 87635; 93005; A4216; J1940; J7040; P9016

== ENCOUNTER 2020-06-26 11:14 | Emergency (ER) | payer MEDICARE, OTHER ==
[2020-06-26] MEDS ORDERED: ASPIRIN (CHEWABLE) 81 MG TAB PO ONE ×2 (11:30→11:36)
--- NOTE | 2020-06-26 11:33 | ED.PDOC ---
History of Present Illness - General Chief Complaint: Cardiovascular Problem Stated Complaint: chest pain Time Seen by Provider: 06/26/20 11:27 - History of Present Illness Initial Comments: 79 yo M PMH HTN DM HL CHF Anemia requiring transfusion and recent PNA presents to ED at bedside c/o chest pain sob this am. Got 3 nitro's with relief of pain. Denies fever cough admits sob denies recent travel or contact with covid19 denies fever chills nausea vomiting diarrhea admits chest pain sob denies diaphoresis. No change in diet rest bowel or bladder is on home oxygen 3L pt of Dr. Fernandez no other c/o today. PPE worn-N95 surgical mask with attached face shield over N95 gloves and face shield over that Allergies/Adverse Reactions: Allergies Morphine Adverse Reaction (Verified 06/26/19 13:16) Other Causes patient to be "Wild" Home Medications: Ambulatory Orders Atorvastatin Calcium 40 mg PO DAILY 06/11/20 Clopidogrel Bisulfate [Plavix] 75 mg PO DAILY 06/11/20 Dulaglutide [Trulicity] 0.75 units SC DAILY 06/11/20 Furosemide 40 mg PO DAILY 06/11/20 Hydrocodone-Acetaminophen [Hydrocodone Bitartrate/AC 10-325 mg] 1 tab PO PRN PRN 06/11/20 Insulin Glargine [Toujeo Solostar] 75 units SC DAILY 06/11/20 Magnesium Oxide 420 mg PO BID 06/11/20 Memantine HCl [Memantine Hydrochloride] 5 mg PO DAILY 06/11/20 Metoprolol Tartrate 25 mg PO DAILY 06/11/20 Sertraline HCl 50 mg PO BID 06/11/20 Tamsulosin [Flomax] 0.4 mg PO DAILY 06/11/20 Review of Systems - Review of Systems Constitutional: States: see HPI EENTM: States: see HPI Respiratory: States: see HPI Cardiology: States: see HPI Gastrointestinal/Abdominal: States: see HPI Genitourinary: States: see HPI Musculoskeletal: States: see HPI Skin: States: see HPI Neurological: States: see HPI Endocrine: States: see HPI All other Systems: Reviewed and Negative Past Medical History (General) - Patient Medical History Hx Seizures: No Hx Stroke: No Hx Dementia: Yes Hx Asthma: No Hx of COPD: Yes Hx Cardiac Disorders: Yes - [place] Hx Congestive Heart Failure: Yes Hx Pacemaker: No Hx Hypertension: Yes Hx Thyroid Disease: No Hx Diabetes: Yes Hx Gastroesophageal Reflux: No Hx Renal Disease: No Hx Cancer: No Hx of HIV: No Hx Hepatitis C: No Hx MRSA: No - Vaccination History Hx Tetanus, Diphtheria Vaccination: Yes Hx Influenza Vaccination: No Hx Pneumococcal Vaccination: Yes - Social History Hx Tobacco Use: Yes Hx Chewing Tobacco Use: No Hx Alcohol Use: No Hx Substance Use: No Hx Substance Use Treatment: No Hx Depression: No Hx Physical Abuse: No Hx Emotional Abuse: No Hx Suspected Abuse: No - Female History Patient : No Family Medical History - Family History Father Family History: Unknown Living Status: Hx Family Asthma: No Hx Family Congestive Heart Failure: No Hx Family Hypertension: Yes Hx Cardiac Disease: Yes Physical Exam - Physical Exam General Appearance: No apparent distress Eye Exam: bilateral normal Ears, Nose, Throat: normal ENT inspection Neck: full range of motion Respiratory: respiratory distress, crackles Cardiovascular/Chest: regular rate, rhythm Gastrointestinal/Abdominal: non tender, soft Rectal Exam: deferred Back Exam: normal inspection Extremity: normal inspection Neurologic: no motor/sensory deficits Skin Exam: normal color Progress - Progress Progress: 06/26/20 11:34 A/P-Chest Pain CHF Exacerbation Hypoxia-iv covid test oxygen decadron asa lasix bus monitor pulse ox ekg cxr cbc cmp lactate trop reassess 06/26/20 11:38 06/26/20 12:03 Pt. apparently with h/o CKD Creatinine is 5.23 today with K+ 6.6 needs emergent dialysis paging Nephrology now plan to Transfer after Hyperkalemia cocktail Laboratory Tests 06/26/20 06/26/20 06/26/20 11:01 11:01 11:01 WBC 9.4 RBC 2.72 L Hgb 7.9 L* Hct 23.7 L MCV 87.0 MCH 28.9 MCHC 33.2 RDW 16.9 H Plt Count 147 MPV 8.9 Absolute Neuts (auto) 7.00 H Absolute Lymphs (auto) 1.20 Absolute Monos (auto) 1.00 H Absolute Eos (auto) 0.20 Absolute Basos (auto) 0.10 Neutrophils % 74.4 Lymphocytes % 12.2 L Monocytes % 10.3 H Eosinophils % 2.2 Basophils % 0.9 PT 9.7 INR < 1.00 PTT (SP) 25.0 Sodium 140 Potassium 6.6 H* Chloride 101 Carbon Dioxide 27 Anion Gap 18.6 H BUN 94 H Creatinine 5.23 H BUN/Creatinine Ratio 18.0 Random Glucose 142 H Serum Osmolality 310.9 H Lactic Acid Calcium 7.3 L Total Bilirubin 0.7 AST 23 ALT 30 Alkaline Phosphatase 116 Troponin I B-Natriuretic Peptide Serum Total Protein 6.6 Albumin 3.5 Globulin 3.1 Albumin/Globulin Ratio 1.1 Urine Color Urine Appearance Urine pH Ur Specific [place] Urine Protein Urine Glucose (UA) Urine Ketones Urine Blood Urine Nitrite Urine Bilirubin Urine Urobilinogen Ur Leukocyte Esterase Urine RBC Urine WBC Ur Epithelial Cells Amorphous Sediment Urine Bacteria 06/26/20 06/26/20 06/26/20 11:01 11:01 11:01 WBC RBC Hgb Hct MCV MCH MCHC RDW Plt Count MPV Absolute Neuts (auto) Absolute Lymphs (auto) Absolute Monos (auto) Absolute Eos (auto) Absolute Basos (auto) Neutrophils % Lymphocytes % Monocytes % Eosinophils % Basophils % PT INR PTT (SP) Sodium Potassium Chloride Carbon Dioxide Anion Gap BUN Creatinine BUN/Creatinine Ratio Random Glucose Serum Osmolality Lactic Acid 0.9 Calcium Total Bilirubin AST ALT Alkaline Phosphatase Troponin I 0.03 B-Natriuretic Peptide 667.0 H* Serum Total Protein Albumin Globulin Albumin/Globulin Ratio Urine Color Urine Appearance Urine pH Ur Specific [place] Urine Protein Urine Glucose (UA) Urine Ketones Urine Blood Urine Nitrite Urine Bilirubin Urine Urobilinogen Ur Leukocyte Esterase Urine RBC Urine WBC Ur Epithelial Cells Amorphous Sediment Urine Bacteria 06/26/20 11:38 WBC RBC Hgb Hct MCV MCH MCHC RDW Plt Count MPV Absolute Neuts (auto) Absolute Lymphs (auto) Absolute Monos (auto) Absolute Eos (auto) Absolute Basos (auto) Neutrophils % Lymphocytes % Monocytes % Eosinophils % Basophils % PT INR PTT (SP) Sodium Potassium Chloride Carbon Dioxide Anion Gap BUN Creatinine BUN/Creatinine Ratio Random Glucose Serum Osmolality Lactic Acid Calcium Total Bilirubin AST ALT Alkaline Phosphatase Troponin I B-Natriuretic Peptide Serum Total Protein Albumin Globulin Albumin/Globulin Ratio Urine Color Yellow Urine Appearance Clear Urine pH 7.0 Ur Specific [place] 1.015 Urine Protein 100 H Urine Glucose (UA) Negative Urine Ketones Negative Urine Blood Trace-lysed H Urine Nitrite Negative Urine Bilirubin Negative Urine Urobilinogen 0.2 Ur Leukocyte Esterase Negative Urine RBC 0-1 Urine WBC 0 Ur Epithelial Cells 0-1 Amorphous Sediment 1+ Urine Bacteria 0 11/25/20 12:[address] Celis [facility] for [facility] advis arranging transfer and adding 45 grams of Kayexelate to Hyperkalemia cocktail, will attempt transfer Chest pain resolved but still SOB 06/26/20 13:52 Spoke to Yunior Stephenson [facility] who accepts transfer Departure - Departure Clinical Impression: Hyperkalemia, SOB (shortness of breath), Hypoxia Acute on chronic renal failure Qualifiers: Acute renal failure type: unspecified Chronic kidney disease stage: unspecified stage Qualified Code(s): N17.9 - Acute kidney failure, unspecified; N18.9 - Chronic kidney disease, unspecified CHF exacerbation Qualifiers: Heart failure type: unspecified Qualified Code(s): I50.9 - Heart failure, unspecified Disposition: Transfer to Hospital Condition: Fair Departure Forms: ED Discharge - Pt. Copy, Patient Portal Self Enrollment Instructions: DI for Chest Pain Referrals: MANASA FERNANDEZ MD [Primary Care Provider] - 1-2 Days Home Medications: Ambulatory Orders Atorvastatin Calcium 40 mg PO DAILY 06/11/20 Clopidogrel Bisulfate [Plavix] 75 mg PO DAILY 06/11/20 Dulaglutide [Trulicity] 0.75 units SC DAILY 06/11/20 Furosemide 40 mg PO DAILY 06/11/20 Hydrocodone-Acetaminophen [Hydrocodone Bitartrate/AC 10-325 mg] 1 tab PO PRN PRN 06/11/20 Insulin Glargine [Toujeo Solostar] 75 units SC DAILY 06/11/20 Magnesium Oxide 420 mg PO BID 06/11/20 Memantine HCl [Memantine Hydrochloride] 5 mg PO DAILY 06/11/20 Metoprolol Tartrate 25 mg PO DAILY 06/11/20 Sertraline HCl 50 mg PO BID 06/11/20 Tamsulosin [Flomax] 0.4 mg PO DAILY 06/11/20 Transfer to Outside Facility - Transfer Information Decision to Transfer Date: 06/26/20 Decision to Transfer Time: 13:55 Reason for Transfer: specialized care not available Accepting Provider:: Yunior Stephenson Accepting Facility: [facility]
[2020-06-26] MEDS ORDERED: DEXAMETHASONE INJ 10 MG/ML VIAL IV ONE (11:35)
[2020-06-26] MEDS ORDERED: FUROSEMIDE INJ 40 MG/4 ML VIAL IV ONE (11:38)
[2020-06-26] MEDS ORDERED: FUROSEMIDE INJ 40 MG/4 ML VIAL ONE (11:38)
[2020-06-26] MEDS ORDERED: DEXTROSE 50% 25 GM/50 ML SYG IV ONE (11:53)
[2020-06-26] MEDS ORDERED: INSULIN, REG.(HUMAN) 100 U/ML VIAL IV ONE (11:54)
[2020-06-26] MEDS ORDERED: IPRATROPIUM/ALBUTEROL 3 ML VIAL NEB ONE (11:55)
[2020-06-26] MEDS ORDERED: CALCIUM GLUCONATE INJ 1 GM/10 ML VIAL IV ONE (11:56)
[2020-06-26] MEDS ORDERED: SODIUM CHLORIDE 0.9% 1000ML 1,000 ML IVS ONE (11:56)
[2020-06-26] MEDS ORDERED: SOD POLYSTYRENE SULFONATE 15 GM/60 ML BTTL PO ONE (12:12)
--- NOTE | 2020-06-26 12:12 | RAD ---
EXAM DESCRIPTION: Chest,1 View CLINICAL HISTORY: 79 years Male, chest pain sob COMPARISON: 06/10/2020 Findings: One view(s)/radiograph(s) Cardiomegaly. Pulmonary vascular congestion. No pneumothorax. Trace bilateral pleural effusions. No focal consolidation. No acute osseous abnormality. IMPRESSION: CHF. Electronically signed by: Oral Roy MD 06/26/2020 12:10 PM [facility]
[2020-06-26] MEDS ORDERED: SODIUM CHLORIDE 0.9% 50ML 50 ML ONE (12:18)
[2020-06-26] MEDS ORDERED: AZITHROMYCIN IV 500 MG in SODIUM CHLORIDE 0.9% 250ML 250 ML IVPB ONE (13:50)
[2020-06-26] MEDS ORDERED: cefTRIAXone SODIUM 1 GM in SODIUM CHL 0.9% 50ML MIN-BAG+ 50 ML IVPB ONE (13:50)
[2020-06-26 14:47] VITALS: BP 166/104
[2020-06-26 15:06] VITALS: TEMP 96.2; O2SAT 93
== END 2020-06-26 14:55 | disposition short-term general hospital (02) ==
LOC: ER 11:14
DX: I50.9 Heart failure, unspecified (principal); N17.9 Acute kidney failure, unspecified; N18.9 Chronic kidney disease, unspecified; E87.5 Hyperkalemia; R09.02 Hypoxemia; F03.90 Unspecified dementia, unspecified severity, without behavioral disturbance, psychotic disturbance, mood disturbance, and anxiety; J44.9 Chronic obstructive pulmonary disease, unspecified; I25.2 Old myocardial infarction; E11.22 Type 2 diabetes mellitus with diabetic chronic kidney disease; I13.0 Hypertensive heart and chronic kidney disease with heart failure and stage 1 through stage 4 chronic kidney disease, or unspecified chronic kidney disease; E78.00 Pure hypercholesterolemia, unspecified; Z20.828 Contact with and (suspected) exposure to other viral communicable diseases; Z87.01 Personal history of pneumonia (recurrent); Z99.81 Dependence on supplemental oxygen; Z86.2 Personal history of diseases of the blood and blood-forming organs and certain disorders involving the immune mechanism; Z79.899 Other long term (current) drug therapy; Z79.4 Long term (current) use of insulin; Z79.02 Long term (current) use of antithrombotics/antiplatelets; Z88.5 Allergy status to narcotic agent; Z87.891 Personal history of nicotine dependence
CPT/HCPCS: 36415; 71045; 80048; 80053; 81001; 83605; 83880; 84484; 85025; 85610; 85730; 87635; 93005; 94640; A4216; J0456; J0696; J1100; J1940; J7030; J7050; J7620; J7799

== ENCOUNTER 2020-07-09 23:23 | Emergency (ER) | payer MEDICARE, OTHER ==
--- NOTE | 2020-07-09 23:35 | ED.PDOC ---
History of Present Illness - General Time Seen by Provider: 07/09/20 23:25 Source: patient, RN notes reviewed, Vital Signs reviewed, EMS notes reviewed, old records Exam Limitations: no limitations - History of Present Illness Initial Comments: 79 yo male with CHF, CKD and DM on home oxygen 3 L comes in via EMS with gradual worsening of shortness of breath. No fever, no cough. Hx of CAD with stents. no orthopnea. states patient was recently hospitalized in with similar issue and in [place] two weeks before that. States he needs dialysis, but refuses. Allergies/Adverse Reactions: Allergies Morphine Adverse Reaction (Verified 06/26/19 13:16) Other Causes patient to be "Wild" Home Medications: Ambulatory Orders Atorvastatin Calcium 40 mg PO DAILY 06/11/20 Clopidogrel Bisulfate [Plavix] 75 mg PO DAILY 06/11/20 Dulaglutide [Trulicity] 0.75 units SC DAILY 06/11/20 Furosemide 40 mg PO DAILY 06/11/20 Hydrocodone-Acetaminophen [Hydrocodone Bitartrate/AC 10-325 mg] 1 tab PO PRN PRN 06/11/20 Insulin Glargine [Toujeo Solostar] 75 units SC DAILY 06/11/20 Magnesium Oxide 420 mg PO BID 06/11/20 Memantine HCl [Memantine Hydrochloride] 5 mg PO DAILY 06/11/20 Metoprolol Tartrate 25 mg PO DAILY 06/11/20 Sertraline HCl 50 mg PO BID 06/11/20 Tamsulosin [Flomax] 0.4 mg PO DAILY 06/11/20 Review of Systems - Review of Systems Constitutional: States: malaise. Denies: chills, fever EENTM: Denies: blurred vision, throat pain, mouth pain Respiratory: States: short of breath. Denies: cough, orthopnea, wheezing Cardiology: States: chest pain. Denies: palpitations, syncope Gastrointestinal/Abdominal: Denies: abdominal pain, diarrhea, nausea Genitourinary: Denies: frequency, hematuria Musculoskeletal: Denies: back pain, joint swelling, muscle pain Skin: Denies: rash Neurological: Denies: headache, numbness, paresthesia Endocrine: Denies: unexplained weight gain, unexplained weight loss Hematologic/Lymphatic: Denies: blood clots, easy bleeding, easy bruising Past Medical History (General) - Patient Medical History Hx Seizures: No Hx Stroke: No Hx Dementia: Yes Hx Asthma: No Hx of COPD: Yes Hx Cardiac Disorders: Yes - [place] Hx Congestive Heart Failure: Yes Hx Pacemaker: No Hx Hypertension: Yes Hx Thyroid Disease: No Hx Diabetes: Yes Hx Gastroesophageal Reflux: No Hx Renal Disease: No Hx Cancer: No Hx of HIV: No Hx Hepatitis C: No Hx MRSA: No - Vaccination History Hx Tetanus, Diphtheria Vaccination: Yes Hx Influenza Vaccination: No Hx Pneumococcal Vaccination: Yes - Social History Hx Tobacco Use: Yes Hx Chewing Tobacco Use: No Hx Alcohol Use: No Hx Substance Use: No Hx Substance Use Treatment: No Hx Depression: No Hx Physical Abuse: No Hx Emotional Abuse: No Hx Suspected Abuse: No - Female History Patient : No Family Medical History - Family History Father Family History: Unknown Living Status: Hx Family Asthma: No Hx Family Congestive Heart Failure: No Hx Family Hypertension: Yes Hx Cardiac Disease: Yes Physical Exam - Physical Exam General Appearance: Alert, Comfortable, No apparent distress, Obese, Well Developed, Well Groomed, Well Hydrated, Well Nourished Eyes, Ears, Nose, Throat Exam: PERRL/EOMI, normal ENT inspection Neck: non-tender, full range of motion, supple, normal inspection Respiratory: chest non-tender, lungs clear, normal breath sounds, no respiratory distress, no accessory muscle use Cardiovascular/Chest: normal peripheral pulses, regular rate, rhythm, no gallop, no JVD, no murmur Peripheral Pulses: radial,right: 2+, radial,left: 2+ Gastrointestinal/Abdominal: normal bowel sounds, non tender, soft, no organo megaly, no pulsatile mass Rectal Exam: deferred Extremity: normal range of motion, non-tender, normal inspection, no calf tenderness, normal capillary refill Neurologic: no motor/sensory deficits, alert, normal mood/affect, oriented x 3 Skin Exam: warm/dry, pallor Progress - Progress Progress: 79 yo male with hx of CHF, CKD, DM and COPD on 3 L oxygen at home comes in with gradual worsening shortness of breath and weakness the past 4 days. Was recently hospitalized in for acute exacerbation of heart failure. When he got here vital signs were stable. HR 62, BP 115/72, afebrile. He was saturating 92% on his home 3 L NC. CXR shows mild pulmonary congestion. Blood work showed hgb 5.5, fecal occult positive (no black bm) BUN 102, Cr 5.7 baseline bun 58, baseline cr 4. BNP was 615, troponin 0.04. COVID negative. EKG shows no acute ischemic changes. He was given 40 mg IV Lasix, 2 units of pRBC, Kayexalate. hypermagnesium_ treated with calcium gluconate. hyperkalemia - treated with albuterol, sintia gluconate, lasix, kayexalate The data reviewed when caring for this patient included: nurse notes, prior records, etc. The history and assessments from nurses notes were reviewed and considered, and the patient's home medication list was also reviewed and considered. My assessment and the results of testing completed here in the ED were discussed with the patient/family. All questions were answered, and they express understanding of my assessment and the plan. patient was transferred in stable condition. Rita Lanier DO #[id number] 07/10/20 02:12 - EKG/XRAY/CT EKG: Sinus Comments: HR 61, PAC, RBBB, LAFB, no sign change when compared to prior. XRAY: chest - mild pulmonary congestions, similar to prior xray Departure - Departure Clinical Impression: Bundle branch block, right and left anterior fascicular, Anemia of chronic disease, GI bleed not requiring more than 4 units of blood in 24 hours, ICU, or surgery Renal failure, acute on chronic Qualifiers: Acute renal failure type: unspecified Chronic kidney disease stage: unspecified stage Qualified Code(s): N17.9 - Acute kidney failure, unspecified Acute exacerbation of CHF (congestive heart failure) Qualifiers: Heart failure type: unspecified Qualified Code(s): I50.9 - Heart failure, unspecified Condition: Fair Departure Forms: ED Discharge - Pt. Copy, Patient Portal Self Enrollment Referrals: MANASA REES MD [Primary Care Provider] - 1-2 Days Home Medications: Ambulatory Orders Atorvastatin Calcium 40 mg PO DAILY 06/11/20 Clopidogrel Bisulfate [Plavix] 75 mg PO DAILY 06/11/20 Dulaglutide [Trulicity] 0.75 units SC DAILY 06/11/20 Furosemide 40 mg PO DAILY 06/11/20 Hydrocodone-Acetaminophen [Hydrocodone Bitartrate/AC 10-325 mg] 1 tab PO PRN PRN 06/11/20 Insulin Glargine [Toujeo Solostar] 75 units SC DAILY 06/11/20 Magnesium Oxide 420 mg PO BID 06/11/20 Memantine HCl [Memantine Hydrochloride] 5 mg PO DAILY 06/11/20 Metoprolol Tartrate 25 mg PO DAILY 06/11/20 Sertraline HCl 50 mg PO BID 06/11/20 Tamsulosin [Flomax] 0.4 mg PO DAILY 06/11/20 Transfer to Outside Facility - Transfer Information Decision to Transfer Date: 07/10/20 Decision to Transfer Time: 00:18 Reason for Transfer: specialized care not available
[2020-07-10] MEDS ORDERED: FUROSEMIDE INJ 40 MG/4 ML VIAL IV ONE (00:04)
--- NOTE | 2020-07-10 00:04 | RAD ---
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 FINDINGS: Single view of the chest was obtained portable. Prior films were compared. External EKG leads within the [id number] limits diagnosis. Lung volume is slightly decreased. Chronic elevation right hemidiaphragm with minimal compressive atelectatic changes. Mild diffuse perihilar increased interstitial density. The heart is prominent. Costophrenic angles are sharp. No areas of consolidation or masses are seen. Minimal degenerative changes both shoulders. IMPRESSION: CARDIOMEGALY. MILD CHRONIC ELEVATION RIGHT HEMIDIAPHRAGM WITH MINIMAL COMPRESSIVE ATELECTATIC CHANGES. MILD PERIHILAR DENSITIES SUGGESTING THE POSSIBILITY OF PULMONARY VENOUS CONGESTION, SIMILAR TO PRIOR STUDIES. Electronically signed by: Oleg Ch MD 07/10/2020 12:02 AM DEPARTMENT STORE MANAGER
[2020-07-10] MEDS ORDERED: SOD POLYSTYRENE SULFONATE 15 GM/60 ML BTTL PO ONE (00:12)
[2020-07-10] MEDS ORDERED: ALBUTEROL INHALER 64 PUFF/8GM INH ONE (00:12)
[2020-07-10] MEDS ORDERED: ACETAMINOPHEN 325 MG TAB PO ONE (00:15)
[2020-07-10] MEDS ORDERED: diphenhydrAMINE HCL 50 MG/ML VIAL IV ONE (00:15)
[2020-07-10] MEDS ORDERED: CALCIUM GLUCONATE INJ 1 GM/10 ML VIAL IV ONE (00:17)
[2020-07-10] MEDS ORDERED: ALBUTEROL SULFATE 2.5 MG/3 ML VIAL NEB ONE (00:22)
[2020-07-10] MEDS ORDERED: SOD POLYSTYRENE SULFONATE 15 GM/60 ML BTTL ONE (00:29)
[2020-07-10] MEDS ORDERED: SODIUM CHLORIDE 0.9% 500ML 500 ML IVS SCH (00:30)
[2020-07-10 03:34] VITALS: O2SAT 95
[2020-07-10 04:59] VITALS: BP 162/73; TEMP 97.4
== END 2020-07-10 04:50 | disposition home or self-care (01) ==
LOC: ER 23:23
DX: N17.9 Acute kidney failure, unspecified (principal); I50.9 Heart failure, unspecified; I45.2 Bifascicular block; K92.1 Melena; N18.9 Chronic kidney disease, unspecified; I49.1 Atrial premature depolarization; E83.41 Hypermagnesemia; E87.5 Hyperkalemia; R07.9 Chest pain, unspecified; J44.9 Chronic obstructive pulmonary disease, unspecified; E11.22 Type 2 diabetes mellitus with diabetic chronic kidney disease; I13.0 Hypertensive heart and chronic kidney disease with heart failure and stage 1 through stage 4 chronic kidney disease, or unspecified chronic kidney disease; I25.10 Atherosclerotic heart disease of native coronary artery without angina pectoris; I25.2 Old myocardial infarction; F03.90 Unspecified dementia, unspecified severity, without behavioral disturbance, psychotic disturbance, mood disturbance, and anxiety; Z20.828 Contact with and (suspected) exposure to other viral communicable diseases; Z99.81 Dependence on supplemental oxygen; Z95.5 Presence of coronary angioplasty implant and graft; Z88.5 Allergy status to narcotic agent; Z79.899 Other long term (current) drug therapy; Z79.4 Long term (current) use of insulin; Z79.02 Long term (current) use of antithrombotics/antiplatelets
CPT/HCPCS: 36415; 71045; 80053; 82270; 83735; 83880; 84484; 85025; 85610; 85730; 86850; 86900; 86901; 86922; 87635; 93005; 94640; J1200; J1940; J7040; J7611; P9016

== ENCOUNTER → 2020-07-19 | Outpatient (CLI) | payer MEDICARE, OTHER | LOC: GMAE 08:55 | PROVIDERS: ATTEND Family Medicine | DX: D50.0 Iron deficiency anemia secondary to blood loss (chronic) (principal); N18.5 Chronic kidney disease, stage 5 ==

== ENCOUNTER 2020-07-24 07:28 | Emergency (ER) | payer MEDICARE, OTHER ==
--- NOTE | 2020-07-24 07:45 | ED.PDOC ---
History of Present Illness - General Chief Complaint: Abdominal Pain Stated Complaint: abdominal pain Time Seen by Provider: 07/24/20 07:30 Source: patient, RN notes reviewed, Vital Signs reviewed, EMS notes reviewed, family, EMS, old records Exam Limitations: no limitations - History of Present Illness Initial Comments: 80 yo Male who has been in and out of the hospital several times over the past month comes in with abdominal pain while coughing. Hx of DM, HTN, COPD, CHF, ESRD and now Covid. Per prior conversation was not going to get dialysis, although it was advised to him. Patient however is a poor historian. Wears 3 L oxygen at home. Only current complaint is knee pain. Denies n/v/d. no headache. no chest pain. States he chronically feels short of breath. Has nephrology appointment July 29. Prior admission hgb 5.5, was found to have upper GI bleed had egd. Is on PPI, is suppose to have a follow up EGD in a few weeks per . also mentioned recently started on hydralazine. Allergies/Adverse Reactions: Allergies Morphine Adverse Reaction (Verified 06/26/19 13:16) Other Causes patient to be "Wild" Home Medications: Ambulatory Orders Atorvastatin Calcium 40 mg PO DAILY 06/11/20 Clopidogrel Bisulfate [Plavix] 75 mg PO DAILY 06/11/20 Dulaglutide [Trulicity] 0.75 units SC DAILY 06/11/20 Furosemide 40 mg PO DAILY 06/11/20 Hydrocodone-Acetaminophen [Hydrocodone Bitartrate/AC 10-325 mg] 1 tab PO PRN PRN 06/11/20 Insulin Glargine [Toujeo Solostar] 75 units SC DAILY 06/11/20 Magnesium Oxide 420 mg PO BID 06/11/20 Memantine HCl [Memantine Hydrochloride] 5 mg PO DAILY 06/11/20 Metoprolol Tartrate 25 mg PO DAILY 06/11/20 Sertraline HCl 50 mg PO BID 06/11/20 Tamsulosin [Flomax] 0.4 mg PO DAILY 06/11/20 Review of Systems - Review of Systems Constitutional: States: malaise. Denies: chills, fever EENTM: Denies: blurred vision, throat pain, mouth pain Respiratory: States: cough, short of breath. Denies: orthopnea Cardiology: Denies: chest pain, palpitations Gastrointestinal/Abdominal: States: abdominal pain. Denies: constipation, diarrhea, nausea, vomiting Genitourinary: Denies: frequency, hematuria Musculoskeletal: States: joint pain. Denies: back pain, joint swelling, muscle pain Skin: Denies: rash Neurological: Denies: headache, numbness, paresthesia, tingling Endocrine: Denies: unexplained weight gain, unexplained weight loss Hematologic/Lymphatic: Denies: blood clots, easy bleeding, easy bruising Past Medical History (General) - Patient Medical History Hx Seizures: No Hx Stroke: No Hx Dementia: Yes Hx Asthma: No Hx of COPD: Yes Hx Cardiac Disorders: Yes - [place] Hx Congestive Heart Failure: Yes Hx Pacemaker: No Hx Hypertension: Yes Hx Thyroid Disease: No Hx Diabetes: Yes Hx Gastroesophageal Reflux: No Hx Renal Disease: No Hx Cancer: No Hx of HIV: No Hx Hepatitis C: No Hx MRSA: No - Vaccination History Hx Tetanus, Diphtheria Vaccination: Yes Hx Influenza Vaccination: No Hx Pneumococcal Vaccination: Yes - Social History Hx Tobacco Use: Yes Hx Chewing Tobacco Use: No Hx Alcohol Use: No Hx Substance Use: No Hx Substance Use Treatment: No Hx Depression: No Hx Physical Abuse: No Hx Emotional Abuse: No Hx Suspected Abuse: No - Female History Patient : No Family Medical History - Family History Father Family History: Unknown Living Status: Hx Family Asthma: No Hx Family Congestive Heart Failure: No Hx Family Hypertension: Yes Hx Cardiac Disease: Yes Physical Exam - Physical Exam General Appearance: Alert, Comfortable, No apparent distress, Obese, Well Developed, Well Groomed, Well Hydrated, Well Nourished Eye Exam: bilateral normal Ears, Nose, Throat: hearing grossly normal, normal ENT inspection Neck: non-tender, full range of motion, supple, normal inspection Respiratory: chest non-tender, no respiratory distress, no accessory muscle use Cardiovascular/Chest: normal peripheral pulses, regular rate, rhythm, no gallop, no JVD Peripheral Pulses: radial,right: 2+, radial,left: 2+ Gastrointestinal/Abdominal: normal bowel sounds, non tender, soft, no organomegaly Rectal Exam: deferred Back Exam: normal inspection, no CVA tenderness Extremity: normal range of motion, non-tender Neurologic: pictures editor II-XII nml as tested, no motor/sensory deficits, alert, normal mood/affect, oriented x 3 Skin Exam: normal color, warm/dry Progress - Progress Progress: 07/24/20 08:50 MRG Score: 135.000 Percent probability of 7-day mortality: 8.5% 07/24/20 09:38 parital ddx: CHF, COPD, pulmonary edema from ckd, covid, pneumonia, PE. Patient on home oxygen 3 L. K mild elevated without ekg changes. Will give lasix and kayexalate. Hgb stable at 9.8. Troponin elevated 0.07, I do not feel this is due to CKD as his previous Cr was higher than today and his troponin was normal at previous visits. most likely demand ischemia. Will give aspirin and heparin. Will monitor Hgb closely given his recent upper gi bleed. Will make sure patient continues with protonix. will give one dose of banlanivimab antibody. repeat troponin trending up. will transfer to [place]. 07/24/20 09:46 07/24/20 10:58 07/24/20 07:45 EKG STAT 07/24/20 08:00 C-REACTIVE PROTEIN Stat CREATINE PHOSPHOKINASE Stat LD-L/LDH Stat MAGNESIUM Stat 07/24/20 09:48 Isolation:Airborne ONCE 07/24/20 10:00 Pulse Ox, Continuous Monitoring STAT 07/24/20 10:10 ABG [Arterial Blood Gas] Stat 07/24/20 10:45 Heparin Premix [Heparin/D5w 25,000U/500ML] 25,000 units Premix Bag 1 bag IVS PRN 07/25/20 10:00 Pulse Ox, Continuous Monitoring STAT 07/26/20 10:00 Pulse Ox, Continuous Monitoring STAT Laboratory Results WBC 10.0 K/mm3 (4.8-10.8) 07/24/20 08:00 RBC 3.51 M/mm3 (4.70-6.10) L 07/24/20 08:00 Hgb 9.8 gm/dL (14.0-18.0) L 07/24/20 08:00 Hct 29.9 % (42.0-52.0) L 07/24/20 08:00 MCV 85.2 fl (80.0-94.0) 07/24/20 08:00 MCH 28.0 pg (27.0-31.0) 07/24/20 08:00 MCHC 32.9 g/dL (33.0-37.0) L 07/24/20 08:00 RDW 18.4 % (11.5-14.5) H 07/24/20 08:00 Plt Count 118 K/mm3 (130-400) L 07/24/20 08:00 MPV 9.5 fl (7.40-10.4) 07/24/20 08:00 Absolute Neuts (auto) 8.30 K/uL (1.8-6.8) H 07/24/20 08:00 Absolute Lymphs (auto) 0.50 K/uL (1.0-3.4) L 07/24/20 08:00 Absolute Monos (auto) 1.00 K/uL (0.2-0.8) H 07/24/20 08:00 Absolute Eos (auto) 0.20 K/uL (0.0-0.4) 07/24/20 08:00 Absolute Basos (auto) 0.10 K/uL (0.0-0.1) 07/24/20 08:00 Neutrophils % 82.8 % (42.0-78.0) H 07/24/20 08:00 Lymphocytes % 5.0 % (20.0-50.0) L 07/24/20 08:00 Monocytes % 9.7 % (2.0-9.0) H 07/24/20 08:00 Eosinophils % 1.8 % (1.0-5.0) 07/24/20 08:00 Basophils % 0.7 % (0.0-2.0) 07/24/20 08:00 PT 9.7 SECONDS (9.0-10.9) 07/24/20 08:00 INR < 1.00 (0.9-1.15) 07/24/20 08:00 PTT (SP) 28.1 SECONDS (21.8-31.6) 07/24/20 08:00 D-Dimer, Quantitative 1020.0 ng/ml (131-400) H* 07/24/20 08:00 Sodium 140 mmol/L (135-145) 07/24/20 08:00 Potassium 5.5 mmol/L (3.6-5.0) H 07/24/20 08:00 Chloride 103 mmol/L (101-111) 07/24/20 08:00 Carbon Dioxide 28 mmol/L (21-31) 07/24/20 08:00 Anion Gap 14.5 (12-18) 07/24/20 08:00 BUN 77 mg/dL (7-18) H 07/24/20 08:00 Creatinine 4.74 mg/dL (0.6-1.3) H 07/24/20 08:00 BUN/Creatinine Ratio 16.2 (10-20) 07/24/20 08:00 Random Glucose 88 mg/dL (70-105) 07/24/20 08:00 Serum Osmolality 301.8 mOsm/L (275-295) H 07/24/20 08:00 Calcium 7.6 mg/dL (8.4-10.2) L 07/24/20 08:00 Total Bilirubin 0.9 mg/dL (0.2-1.0) 07/24/20 08:00 AST 26 IU/L (10-42) 07/24/20 08:00 ALT 19 IU/L (10-60) 07/24/20 08:00 Alkaline Phosphatase 80 IU/L (42-121) 07/24/20 08:00 Troponin I 0.10 ng/mL (0.01-0.05) H* 07/24/20 09:58 B-Natriuretic Peptide 462.0 pg/ml (0-100) H* 07/24/20 08:00 Serum Total Protein 6.1 gm/dL (6.4-8.2) L 07/24/20 08:00 Albumin 2.8 g/dl (3.2-5.5) L 07/24/20 08:00 Globulin 3.3 gm/dL (2.3-3.5) 07/24/20 08:00 Albumin/Globulin Ratio 0.8 (1.1-1.9) L 07/24/20 08:00 Lipase 47 U/L (22-51) 07/24/20 08:00 Urine Color Yellow (Yellow) 07/24/20 08:46 Urine Appearance Clear (Clear) 07/24/20 08:46 Urine pH 7.5 (4.5-7.8) 07/24/20 08:46 Ur Specific [place] 1.015 (1.005-1.030) 07/24/20 08:46 Urine Protein >=300 mg/dL H 07/24/20 08:46 Urine Glucose (UA) Negative mg/dL (Negative) 07/24/20 08:46 Urine Ketones Negative mg/dL (NEGATIVE) 07/24/20 08:46 Urine Blood Negative (Negative) 07/24/20 08:46 Urine Nitrite Negative 07/24/20 08:46 Urine Bilirubin Negative (NEGATIVE) 07/24/20 08:46 Urine Urobilinogen 0.2 mg/dL (0.2-1.0) 07/24/20 08:46 Ur Leukocyte Esterase Negative (Negative) 07/24/20 08:46 Urine RBC 0 /hpf 07/24/20 08:46 Urine WBC 0-1 /hpf 07/24/20 08:46 Ur Epithelial Cells 0 /hpf 07/24/20 08:46 Urine Bacteria 0 07/24/20 08:46 07/24/20 10:59 07/24/20 11:48 - Results/Orders Results/Orders: Ct chest/abdomen: CT CHEST FINDINGS: Heart and mediastinum: Enlarged heart. No pericardial effusion. Unremarkable esophagus. Mild atherosclerosis. No pathologically enlarged mediastinal lymph nodes. Evaluation for hilar adenopathy limited without intravenous contrast. Thyroid Gland: Normal. Lungs: Patchy ground glass consolidation throughout the lungs, peripheral predominance in the right lung and inferiorly left, left lower lobe. Airways: Normal. Pleura: Normal. Musculoskeletal and Soft Tissues: No acute fracture or aggressive appearing osseous lesion. Soft tissues unremarkable. CT ABDOMEN/PELVIS FINDINGS: Limited evaluation of the solid organs secondary to the lack of intravenous contrast. Solid Organs: Unremarkable noncontrast appearance of the liver, pancreas, adrenal glands. Gallbladder surgically absent. No biliary ductal dilatation. Punctate calcified rim is within the spleen. Bilateral renal atrophy. Cortical right renal cyst. No renal or ureteral stone. No hydronephroureter. GI tract: Unremarkable decompressed stomach. No small bowel obstruction. Large amount of well-formed stool within the ascending and transverse colon. Appendix is not identified. No pericecal inflammation. Vascular: Mild atherosclerosis. Musculoskeletal and soft tissues: No acute fracture or aggressive appearing osseous lesion. Previous right hip arthroplasty. Spinal stimulator present in the posterior soft tissue overlying the right flank with its lead wires entering the lower thoracic spine. Urinary bladder: Normal. Prostate: Normal. Other: None. IMPRESSION: 1. Pulmonary findings most likely representing multifocal or viral pneumonia given the patient's history. 2. Additional findings as above. The data reviewed when caring for this patient included: nurse notes, prior records, etc. The history and assessments from nurses notes were reviewed and considered, and the patient's home medication list was also reviewed and considered. My assessment and the results of testing completed here in the ED were discussed with the patient/family. All questions were answered, and they express understanding of my assessment and the plan.patient transferred in stable condition. Rita Lanier DO #801 - EKG/XRAY/CT EKG: Sinus - hr 69, RBBB, Unchanged from - no sign changes from 07/09/2020 Comments: LAFB, XRAY: chest - pulmonary congestion Departure - Departure Clinical Impression: COVID-19, CKD (chronic kidney disease) stage 4, GFR 15-29 ml/min, Bundle branch block, right and left anterior fascicular, Hyperkalemia, SOB (shortness of breath), Anemia of chronic disease, Chronic respiratory failure with hypoxia, on home O2 therapy, NSTEMI (non-ST elevated myocardial infarction) Congestive heart failure Qualifiers: Heart failure type: unspecified Heart failure chronicity: chronic Qualified Code(s): I50.9 - Heart failure, unspecified Time of Disposition: 11:48 Disposition: Transfer to Hospital Departure Forms: ED Discharge - Pt. Copy, Patient Portal Self Enrollment Instructions: DI for Abdominal Pain-Adult Diet: low salt diet Activity: increase activity as tolerated Referrals: MANASA REES MD [Primary Care Provider] - 1-5 Days Home Medications: Ambulatory Orders Atorvastatin Calcium 40 mg PO DAILY 06/11/20 Clopidogrel Bisulfate [Plavix] 75 mg PO DAILY 06/11/20 Dulaglutide [Trulicity] 0.75 units SC DAILY 06/11/20 Furosemide 40 mg PO DAILY 06/11/20 Hydrocodone-Acetaminophen [Hydrocodone Bitartrate/AC 10-325 mg] 1 tab PO PRN PRN 06/11/20 Insulin Glargine [Toujeo Solostar] 75 units SC DAILY 06/11/20 Magnesium Oxide 420 mg PO BID 06/11/20 Memantine HCl [Memantine Hydrochloride] 5 mg PO DAILY 06/11/20 Metoprolol Tartrate 25 mg PO DAILY 06/11/20 Sertraline HCl 50 mg PO BID 06/11/20 Tamsulosin [Flomax] 0.4 mg PO DAILY 06/11/20 Transfer to Outside Facility - Transfer Information Decision to Transfer Date: 07/24/20 Decision to Transfer Time: 08:00 Reason for Transfer: required specialist not available Accepting Facility: [facility] - discussed with hospitalist, wants repeat troponin, if not trending up does not feel makes transfer criteria.
--- NOTE | 2020-07-24 07:59 | RAD ---
EXAM DESCRIPTION: Chest,1 View CLINICAL HISTORY: 80 years Male, short of breath COMPARISON: July 09, 2020 TECHNIQUE: X-ray 1 view chest AP portable FINDINGS: Marked cardiomegaly with vascular congestion slightly improved. Lungs clear. No effusion. IMPRESSION: Improving CHF Electronically signed by: Khoa Esquivel MD 07/24/2020 7:57 AM MEDICAL SOCIOLOGIST
[2020-07-24] MEDS ORDERED: FUROSEMIDE INJ 40 MG/4 ML VIAL IV ONE (08:40)
[2020-07-24] MEDS ORDERED: SOD POLYSTYRENE SULFONATE 15 GM/60 ML BTTL PO ONE (08:41)
[2020-07-24] MEDS ORDERED: ASPIRIN (CHEWABLE) 81 MG TAB PO ONE (09:20)
--- NOTE | 2020-07-24 09:31 | CT ---
EXAM DESCRIPTION: Chest w/o Contrast (accession [id number]), Abdoment/Pelvis w/o Contrast (accession [id number]) CLINICAL HISTORY: 80 years Male, cough, covid, copd COMPARISON: None. TECHNIQUE: CT images of the chest, abdomen, and pelvis without IV contrast. Multiplanar reformations provided. This exam was performed according to our departmental dose-optimization program, which includes automated exposure control, adjustment of the mA and/or kV according to patient size and/or use of iterative reconstruction technique. CT CHEST FINDINGS: Heart and mediastinum: Enlarged heart. No pericardial effusion. Unremarkable esophagus. Mild atherosclerosis. No pathologically enlarged mediastinal lymph nodes. Evaluation for hilar adenopathy limited without intravenous contrast. Thyroid Gland: Normal. Lungs: Patchy ground glass consolidation throughout the lungs, peripheral predominance in the right lung and inferiorly left, left lower lobe. Airways: Normal. Pleura: Normal. Musculoskeletal and Soft Tissues: No acute fracture or aggressive appearing osseous lesion. Soft tissues unremarkable. CT ABDOMEN/PELVIS FINDINGS: Limited evaluation of the solid organs secondary to the lack of intravenous contrast. Solid Organs: Unremarkable noncontrast appearance of the liver, pancreas, adrenal glands. Gallbladder surgically absent. No biliary ductal dilatation. Punctate calcified rim is within the spleen. Bilateral renal atrophy. Cortical right renal cyst. No renal or ureteral stone. No hydronephroureter. GI tract: Unremarkable decompressed stomach. No small bowel obstruction. Large amount of well-formed stool within the ascending and transverse colon. Appendix is not identified. No pericecal inflammation. Vascular: Mild atherosclerosis. Musculoskeletal and soft tissues: No acute fracture or aggressive appearing osseous lesion. Previous right hip arthroplasty. Spinal stimulator present in the posterior soft tissue overlying the right flank with its lead wires entering the lower thoracic spine. Urinary bladder: Normal. Prostate: Normal. Other: None. IMPRESSION: 1. Pulmonary findings most likely representing multifocal or viral pneumonia given the patient's history. 2. Additional findings as above. Electronically signed by: Anselmo Evans MD 07/24/2020 9:29 AM [facility]
--- NOTE | 2020-07-24 09:31 | CT ---
EXAM DESCRIPTION: Chest w/o Contrast (accession [id number]), Abdoment/Pelvis w/o Contrast (accession [id number]) CLINICAL HISTORY: 80 years Male, cough, covid, copd COMPARISON: None. TECHNIQUE: CT images of the chest, abdomen, and pelvis without IV contrast. Multiplanar reformations provided. This exam was performed according to our departmental dose-optimization program, which includes automated exposure control, adjustment of the mA and/or kV according to patient size and/or use of iterative reconstruction technique. CT CHEST FINDINGS: Heart and mediastinum: Enlarged heart. No pericardial effusion. Unremarkable esophagus. Mild atherosclerosis. No pathologically enlarged mediastinal lymph nodes. Evaluation for hilar adenopathy limited without intravenous contrast. Thyroid Gland: Normal. Lungs: Patchy ground glass consolidation throughout the lungs, peripheral predominance in the right lung and inferiorly left, left lower lobe. Airways: Normal. Pleura: Normal. Musculoskeletal and Soft Tissues: No acute fracture or aggressive appearing osseous lesion. Soft tissues unremarkable. CT ABDOMEN/PELVIS FINDINGS: Limited evaluation of the solid organs secondary to the lack of intravenous contrast. Solid Organs: Unremarkable noncontrast appearance of the liver, pancreas, adrenal glands. Gallbladder surgically absent. No biliary ductal dilatation. Punctate calcified rim is within the spleen. Bilateral renal atrophy. Cortical right renal cyst. No renal or ureteral stone. No hydronephroureter. GI tract: Unremarkable decompressed stomach. No small bowel obstruction. Large amount of well-formed stool within the ascending and transverse colon. Appendix is not identified. No pericecal inflammation. Vascular: Mild atherosclerosis. Musculoskeletal and soft tissues: No acute fracture or aggressive appearing osseous lesion. Previous right hip arthroplasty. Spinal stimulator present in the posterior soft tissue overlying the right flank with its lead wires entering the lower thoracic spine. Urinary bladder: Normal. Prostate: Normal. Other: None. IMPRESSION: 1. Pulmonary findings most likely representing multifocal or viral pneumonia given the patient's history. 2. Additional findings as above. Electronically signed by: Anselmo Evans MD 07/24/2020 9:29 AM [facility]
[2020-07-24] MEDS ORDERED: HEPARIN SODIUM (PORCINE) 5,000 U/ML VIAL IV ONE (10:37)
[2020-07-24] MEDS ORDERED: HEPARIN PREMIX 25,000 UNITS in PREMIX BAG 1 BAG IVS SCH (10:45)
[2020-07-24 11:16] VITALS: O2SAT 99
[2020-07-24 12:05] VITALS: BP 152/69; TEMP 97.7
== END 2020-07-24 11:45 | disposition short-term general hospital (02) ==
LOC: ER 07:28
DX: U07.1 COVID-19 (principal); I21.4 Non-ST elevation (NSTEMI) myocardial infarction; I50.9 Heart failure, unspecified; N18.4 Chronic kidney disease, stage 4 (severe); I45.2 Bifascicular block; E87.5 Hyperkalemia; D63.1 Anemia in chronic kidney disease; J96.11 Chronic respiratory failure with hypoxia; E66.9 Obesity, unspecified; I25.2 Old myocardial infarction; E11.22 Type 2 diabetes mellitus with diabetic chronic kidney disease; F03.90 Unspecified dementia, unspecified severity, without behavioral disturbance, psychotic disturbance, mood disturbance, and anxiety; I13.0 Hypertensive heart and chronic kidney disease with heart failure and stage 1 through stage 4 chronic kidney disease, or unspecified chronic kidney disease; Z99.81 Dependence on supplemental oxygen; Z79.899 Other long term (current) drug therapy; Z79.4 Long term (current) use of insulin; Z79.02 Long term (current) use of antithrombotics/antiplatelets; Z88.5 Allergy status to narcotic agent; Z87.891 Personal history of nicotine dependence; Z68.33 Body mass index [BMI] 33.0-33.9, adult
CPT/HCPCS: 36415; 36600; 71045; 71250; 74176; 80053; 81001; 82550; 82803; 82805; 83615; 83690; 83735; 83880; 84484; 85025; 85379; 85610; 85730; 86140; 87635; 93005; J1644; J1940

== ENCOUNTER → 2020-07-31 | Outpatient (CLI) | payer MEDICARE, OTHER | LOC: HHH 13:12 | PROVIDERS: ATTEND Internal Medicine Nephrology | DX: E11.22 Type 2 diabetes mellitus with diabetic chronic kidney disease (principal); N18.4 Chronic kidney disease, stage 4 (severe) ==

== ENCOUNTER 2020-08-12 09:26 | Inpatient (IN) | payer MEDICARE, OTHER ==
--- NOTE | 2020-08-12 10:28 | RAD ---
EXAM DESCRIPTION: Chest,1 View CLINICAL HISTORY: 80 years Male, sob COMPARISON: July 24, 2020 TECHNIQUE: AP portable chest. FINDINGS: Single view of the chest shows moderate cardiomegaly with upper normal vascularity. Borderline vascular congestion suspected. Additionally there is patchy inflammatory changes suggested peripherally in the right midlung field and possibly in both lung bases. Differential diagnosis would include both early patchy edema or early inflammatory process with peripheral subsolid consolidation. No associated pleural effusions are seen. Slight deterioration since previous study evident. IMPRESSION: Cardiomegaly with small lung by his and slight but definite increase in central vascularity suggesting early cardiac decompensation. Patchy peripheral subsolid inflammatory changes in the right midlung field and both lung bases consistent with early edema or patchy nonsegmental infiltrate. Electronically signed by: Von Bustos MD 08/12/2020 10:26 AM [facility]
[2020-08-12] MEDS ORDERED: ACETAMINOPHEN 325 MG TAB PO ONE (10:59)
[2020-08-12] MEDS ORDERED: methylPREDNISolone SODIUM SUC 125 MG/2 ML VIAL IV ONE (10:59)
[2020-08-12] MEDS ORDERED: IPRATROPIUM/ALBUTEROL 3 ML VIAL NEB ONE ×2 (11:00→12:17)
[2020-08-12] MEDS ORDERED: diphenhydrAMINE HCL 25 MG CAP PO ONE (11:00)
[2020-08-12] MEDS ORDERED: FUROSEMIDE INJ 40 MG/4 ML VIAL IV ONE (11:01)
[2020-08-12] MEDS ORDERED: levoFLOXacin 500MG IV 500 MG in PREMIX BAG 1 BAG IVPB ONE (11:33)
[2020-08-12] MEDS ORDERED: predniSONE 20 MG TAB PO ONE (12:16)
--- NOTE | 2020-08-12 12:30 | ED.PDOC ---
History of Present Illness - General Chief Complaint: Respiratory Problem Stated Complaint: difficulty breathing Time Seen by Provider: 08/12/20 09:56 Source: patient, family Exam Limitations: no limitations - History of Present Illness Initial Comments: The patient is a 80-year-old male presented emergency room secondary to worsening shortness of breath primarily over the last 24 hours. No productive cough. No definite fever. The patient notes increased edema significantly to bilateral lower extremities over the last 24 hours. The patient does have known end-stage congestive heart failure along with end-stage COPD and end-stage renal failure. He refuses dialysis. He has not had any nausea or vomiting. He does have a known history of a chronic GI bleed along with anemia due to the renal insufficiency. The patient had endoscopies at [place] 2 to 3 weeks ago showing an upper GI bleed. He is still on Plavix, as written for him by Dr. Church. The patient was placed on Protonix and apparently a antibiotic by the lead developer at [place]. He has been with the antibiotic but he is still on the Protonix. The patient does see Dr. Celis for his chronic renal insufficiency but again he has refused dialysis. I have discussed advanced directives with the patient and his today. They do not want any intubation for respiratory failure and they did not want any chest compressions or electrical cardioversion for cardiac arrest. We are currently drawing up the paperwork for the in-hospital DNR. The patient is pleasant and cooperative. He does normally wear oxygen at 2 to 3 L. He is requiring 3 to 4 L here. The patient denies any recent overt GI bleeding. No silver blood and no melena. No abdominal pain. The patient has significant difficulties ambulating at home and at this point he is too weak to transfer himself safely. The patient has extreme shortness of breath with any exertion. He is even significantly short of breath at rest currently. Timing/Duration: 24 hours Severity: moderate Improving Factors: rest Worsening Factors: movement Associated Symptoms: malaise, shortness of breath, weakness - Generalized Allergies/Adverse Reactions: Allergies Morphine Adverse Reaction (Verified 06/26/19 13:16) Other Causes patient to be "Wild" Home Medications: Ambulatory Orders Atorvastatin Calcium 40 mg PO DAILY 06/11/20 Clopidogrel Bisulfate [Plavix] 75 mg PO DAILY 06/11/20 Dulaglutide [Trulicity] 0.75 units SC DAILY 06/11/20 Furosemide 40 mg PO DAILY 06/11/20 Hydrocodone-Acetaminophen [Hydrocodone Bitartrate/AC 10-325 mg] 1 tab PO PRN PRN 06/11/20 Insulin Glargine [Toujeo Solostar] 75 units SC DAILY 06/11/20 Magnesium Oxide 420 mg PO BID 06/11/20 Memantine HCl [Memantine Hydrochloride] 5 mg PO DAILY 06/11/20 Metoprolol Tartrate 25 mg PO DAILY 06/11/20 Sertraline HCl 50 mg PO BID 06/11/20 Tamsulosin [Flomax] 0.4 mg PO DAILY 06/11/20 Review of Systems - Review of Systems Constitutional: States: malaise EENTM: States: no symptoms reported Respiratory: States: cough, short of breath Cardiology: States: edema, other Gastrointestinal/Abdominal: States: no symptoms reported Genitourinary: States: no symptoms reported Musculoskeletal: States: no symptoms reported Skin: States: no symptoms reported Neurological: States: no symptoms reported Endocrine: States: no symptoms reported All other Systems: Reviewed and Negative Past Medical History (General) - Patient Medical History Hx Seizures: No Hx Stroke: No Hx Dementia: Yes Hx Asthma: No Hx of COPD: Yes Hx Cardiac Disorders: Yes - [place] Hx Congestive Heart Failure: Yes Hx Pacemaker: No Hx Hypertension: Yes Hx Thyroid Disease: No Hx Diabetes: Yes Hx Gastroesophageal Reflux: No Hx Renal Disease: No Hx Cancer: No Hx of HIV: No Hx Hepatitis C: No Hx MRSA: No - Vaccination History Hx Tetanus, Diphtheria Vaccination: Yes Hx Influenza Vaccination: No Hx Pneumococcal Vaccination: Yes - Social History Hx Tobacco Use: Yes Hx Chewing Tobacco Use: No Hx Alcohol Use: No Hx Substance Use: No Hx Substance Use Treatment: No Hx Depression: No Hx Physical Abuse: No Hx Emotional Abuse: No Hx Suspected Abuse: No - Female History Patient is a Female of Child Bearing Age (10 -59 yrs old): No Patient : No Family Medical History - Family History Father Family History: Unknown Living Status: Hx Family Asthma: No Hx Family Congestive Heart Failure: No Hx Family Hypertension: Yes Hx Cardiac Disease: Yes Physical Exam - Physical Exam General Appearance: Alert, Frail, Ill Appearing Eye Exam: bilateral normal - The patient has anasarca including periorbital edema. He has a black eye on the right. Ears, Nose, Throat: hearing grossly normal, normal pharynx Neck: non-tender, supple Respiratory: no respiratory distress, no accessory muscle use, rales, rhonchi, wheezing Cardiovascular/Chest: normal peripheral pulses, regular rate, rhythm, other - Anasarca including 3+ edema to bilateral lower extremities. 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 This appears to be, as on many previous occasions due to mixed COPD CHF exacerbation. This is being made worse by worsening anemia. He is symptomatic from the anemia itself. Historically the patient has had difficult to manage/worsening CHF until his blood levels are improved somewhat. No clinical evidence of any active silver hemorrhage. He will need to continue his GI prophylactic medications. No doubt some of the anemia is due to chronic renal insufficiency. The patient is being transfused 1 unit of packed red blood cells only, primarily to improve his cardiac function, but also to make him feel better and be more functional and be able to care for himself. The patient does have significant anasarca. This has apparently worsened overnight. He is receiving a dose of IV Lasix. Certainly the patient has very poor renal function. He does already see Dr. Celis. He does make urine. He will need fluid and salt restriction. It is difficult to tell how much is a COPD exacerbation with this patient as he seems to always have some reactive airway component in the background. He has received 2 DuoNeb treatments. Lung weller do sound better after 2 breathing treatments. He is currently holding his oxygen levels fairly well at 3 to 4 L nasal cannula. We are drawing of the documents for a in-house DNR. The patient has expressed to me and his that he does not want electrical cardioversion, chest compressions or intubation and ventilation. He has tested negative for coronavirus here today. The patient 6 months prognosis is extremely poor given the end-stage lung heart and renal disease. It is certainly much worse if his anemia goes untreated, and he is certainly symptomatic from the anemia at this point regardless. Magnesium level is elevated. He will likely need to disc ontinue the magnesium supplements. Admitting for continued care. hilary rasmussen [id number] 08/12/20 12:45 08/12/20 12:47 - Results/Orders Results/Orders: Chest x-ray shows chronic changes of COPD along with fluid overload. See report for details. Rapid coronavirus test is negative. EKG shows 86 bpm. There is significant sinus arrhythmia. Borderline left axis deviation with a left anterior fascicular block. There is also a right bundle branch block. No obvious ST segment or T wave changes indicative of acute ischemia. Prolonged QT corrected interval. Difficult to assess further secondary to bundle branch blocks. Laboratory Tests 08/12/20 08/12/20 08/12/20 10:00 10:00 10:00 WBC 7.0 RBC 2.73 L Hgb 7.8 L* Hct 24.3 L MCV 88.8 MCH 28.4 MCHC 32.0 L RDW 21.0 H Plt Count 202 MPV 7.8 Absolute Neuts (auto) 4.70 Absolute Lymphs (auto) 1.20 Absolute Monos (auto) 0.70 Absolute Eos (auto) 0.20 Absolute Basos (auto) 0.10 Neutrophils % 67.7 Lymphocytes % 17.2 L Monocytes % 10.6 H Eosinophils % 3.3 Basophils % 1.2 PT 9.9 INR 1.00 PTT (SP) 22.5 Sodium 143 Potassium 5.3 H Chloride 105 Carbon Dioxide 28 Anion Gap 15.3 BUN 70 H Creatinine 4.89 H BUN/Creatinine Ratio 14.3 Random Glucose 168 H Serum Osmolality 309.3 H Calcium 7.9 L Magnesium 4.0 H Total Bilirubin 0.8 AST 25 ALT 24 Alkaline Phosphatase 123 H Creatine Kinase 151 CK-MB (CK-2) 3.5 CK-MB (CK-2) % Not Reportable Troponin I 0.04 B-Natriuretic Peptide 417.0 H* Serum Total Protein 6.6 Albumin 3.1 L Globulin 3.5 Albumin/Globulin Ratio 0.9 L TSH 3.47 Urine Color Urine Appearance Urine pH Ur Specific [place] Urine Protein Urine Glucose (UA) Urine Ketones Urine Blood Urine Nitrite Urine Bilirubin Urine Urobilinogen Ur Leukocyte Esterase Urine RBC Urine WBC Ur Epithelial Cells Amorphous Sediment Urine Bacteria Patient ABO/Rh Antibody Screen Crossmatch 08/12/20 08/12/20 10:51 11:10 WBC RBC Hgb Hct MCV MCH MCHC RDW Plt Count MPV Absolute Neuts (auto) Absolute Lymphs (auto) Absolute Monos (auto) Absolute Eos (auto) Absolute Basos (auto) Neutrophils % Lymphocytes % Monocytes % Eosinophils % Basophils % PT INR PTT (SP) Sodium Potassium Chloride Carbon Dioxide Anion Gap BUN Creatinine BUN/Creatinine Ratio Random Glucose Serum Osmolality Calcium Magnesium Total Bilirubin AST ALT Alkaline Phosphatase Creatine Kinase CK-MB (CK-2) CK-MB (CK-2) % Troponin I B-Natriuretic Peptide Serum Total Protein Albumin Globulin Albumin/Globulin Ratio TSH Urine Color Yellow Urine Appearance Clear Urine pH 5.5 Ur Specific [place] 1.015 Urine Protein 100 H Urine Glucose (UA) Negative Urine Ketones Negative Urine Blood Negative Urine Nitrite Negative Urine Bilirubin Negative Urine Urobilinogen 0.2 Ur Leukocyte Esterase Negative Urine RBC 0 Urine WBC 3-5 H Ur Epithelial Cells 1-3 Amorphous Sediment 1+ Urine Bacteria 0 Patient ABO/Rh B NEGATIVE Antibody Screen Negative Crossmatch See Detail Departure - Departure Clinical Impression: COPD exacerbation, Symptomatic anemia CHF exacerbation Qualifiers: Heart failure type: combined systolic and diastolic Qualified Code(s): I50.43 - Acute on chronic combined systolic (congestive) and diastolic (congestive) heart failure Disposition: Admit Patient Departure Forms: ED Discharge - Pt. Copy, Patient Portal Self Enrollment Referrals: MANASA REES MD [Primary Care Provider] - 1-2 Weeks Home Medications: Ambulatory Orders Atorvastatin Calcium 40 mg PO DAILY 06/11/20 Clopidogrel Bisulfate [Plavix] 75 mg PO DAILY 06/11/20 Dulaglutide [Trulicity] 0.75 units SC DAILY 06/11/20 Furosemide 40 mg PO DAILY 06/11/20 Hydrocodone-Acetaminophen [Hydrocodone Bitartrate/AC 10-325 mg] 1 tab PO PRN PRN 06/11/20 Insulin Glargine [Toujeo Solostar] 75 units SC DAILY 06/11/20 Magnesium Oxide 420 mg PO BID 06/11/20 Memantine HCl [Memantine Hydrochloride] 5 mg PO DAILY 06/11/20 Metoprolol Tartrate 25 mg PO DAILY 06/11/20 Sertraline HCl 50 mg PO BID 06/11/20 Tamsulosin [Flomax] 0.4 mg PO DAILY 06/11/20 Decision To Admit - Decistion To Admit Decision to Admit Reason: Medical Nature Decision to Admit Date: 08/12/20 Decision to Admit Time: 12:48
--- NOTE | 2020-08-12 13:35 | HP ---
SUPERVISING PHYSICIAN: Von Moore MD CHIEF COMPLAINT: Shortness of breath. HISTORY OF PRESENT ILLNESS: This is an 80-year-old male patient who presented to the Emergency Room with worsening shortness of breath over the last 24 hours or so. He did not complain of a cough or fever, but noticed his lower extremities have been swelling a little bit more over the last 24 hours. He does have a history of end-stage congestive heart failure as well as end-stage chronic obstructive pulmonary disease and end-stage renal disease. He refused dialysis in the past. He also a history of chronic GI bleed and endoscopies in [place] 2 to 3 weeks ago showing upper GI bleed. He is still on Plavix and was placed on Protonix and an empiric antibiotic by the printing worker supervisor in [place]. Although he has finished the antibiotic, he is still using the Protonix. According to the ER record, they do not want any intubation, chest compressions or electrocardioversion and they were going to draw up paperwork for in-hospital DNR. He normally wears oxygen at 2 to 3 liters, but requiring about 4 liters here in the Emergency Room. His hemoglobin is noted to be 7.8 and he was given a unit of blood in the ER along with some Lasix. For these reasons, he has been referred for admission. PAST MEDICAL HISTORY: 1. Hyperlipidemia. 2. Hypertension. 3. End-stage renal disease. 4. End-stage chronic obstructive pulmonary disease. 5. End-stage congestive heart failure with a prior echocardiogram showing ejection fraction of around 30%. 6. Benign prostatic hypertrophy. 7. Type 2 diabetes mellitus. 8. Anxiety and depression. PAST SURGICAL HISTORY: 1. Cholecystectomy. 2. Right total hip replacement. 3. Bilateral knee arthroscopies. 4. Bilateral shoulder arthroscopies. 5. Pain stimulator for back pain. 6. Low back surgery. 7. Bilateral cataract surgery. 8. ORIF of femur fracture in 2018. MEDICATIONS: Please see medication reconciliation list once verified in the computer. ALLERGIES: MORPHINE. FAMILY HISTORY: Reviewed and noncontributory. SOCIAL HISTORY: Distant history of smoking. No significant alcohol or illicit drugs. REVIEW OF SYSTEMS: CONSTITUTIONAL: No fever or chills. No recent weight loss or weight gain. HEENT: No headaches, vision changes, ear pain, nasal congestion or throat pain. RESPIRATORY: Positive for shortness of breath. No cough, hemoptysis or pleuritic chest pain. CARDIOVASCULAR: No chest pain, palpitations, but positive for peripheral edema. GASTROINTESTINAL: No nausea, vomiting, diarrhea, constipation or abdominal pain. GENITOURINARY: No dysuria, frequency or flank pain. ENDOCRINE: No polydipsia, polyuria or polyphagia. No heat or cold intolerance. MUSCULOSKELETAL: No joint pain, joint swelling or muscle cramps. NEUROLOGIC: No syncope, paresthesias or seizures. HEMATOLOGIC: Positive for easy bruising, but no transfusion reaction. PHYSICAL EXAMINATION: VITAL SIGNS: Blood pressure 147/71. Heart rate 79. Respiratory rate 20. Temperature 97.8. Oxygen saturation 95%. GENERAL: Mr. Sorto is an 80-year-old male patient who is in no significant distress at this time. NEUROLOGIC: The patient is alert. LUNGS: Diminished with bibasilar rales, no wheezing. CARDIOVASCULAR: Regular rate and rhythm. Normal S1, S2. ABDOMEN: Protuberant. Positive bowel sounds. No tenderness to palpation. GENITOURINARY: Deferred. EXTREMITIES: Lower extremities with 2+ pitting edema. SKIN: Ecchymosis on his right eye. He states he does not remember how he got the black eye. LABORATORY: Hemoglobin 7.8, normal white count. Coagulation studies normal. Chemistries with elevated potassium of 5.3, BUN 70, creatinine 4.89, glucose 158, magnesium 4.0, BNP 417. RADIOLOGY: Chest x-ray shows cardiomegaly with pulmonary vascular new congestion. IMPRESSION: 1. Acute exacerbation of congestive heart failure. 2. History of chronic obstructive pulmonary disease with no acute exacerbation. 3. End-stage renal disease with refusal of dialysis in the past, followed by Dr. Celis. 4. Hyperkalemia secondary to end-stage renal disease. 5. Diabetes mellitus, type 2. 6. Hypertension. PLAN: The patient will be admitted and placed on congestive heart failure protocol with diuretics with daily weights and cardiac monitoring. We will restart his beta flako and place him on an ARB as opposed to an ZOILA inhibitor once is admitted and I can verify his home medications to ensure that he is not already on one. We will recheck his labs tomorrow as well. If he does well over the next 24 to 48 hours, he can be discharged home. #[id number] [facility]
[2020-08-12] MEDS ORDERED: SODIUM CHLORIDE 0.9% 250ML 250 ML ONE (13:48)
[2020-08-12] MEDS ORDERED: SODIUM CHLORIDE 0.9% (FLUSH) 10 ML SYG IV PRN (15:04)
[2020-08-12] MEDS ORDERED: NITROGLYCERIN 0.4 MG 25 EA TAB SL PRN (15:04)
[2020-08-12] MEDS ORDERED: IV SET AND CAP CHANGE INJ INJ SCH (15:30)
[2020-08-12] MEDS: FUROSEMIDE INJ 40 MG/4 ML VIAL IV SCH (17:31)
[2020-08-12] MEDS ORDERED: HYDROcodone 10MG/APAP 325MG 1 EA TAB PO PRN (20:57)
[2020-08-12] MEDS ORDERED: NON-FORMULARY MEDICATION 1 EA MIS (Atorvastatin Calcium [Atorvastatin Calcium] 40 MG) PO SCH (21:00)
[2020-08-12] MEDS ORDERED: MEMANTINE HCL 5 MG PO SCH (21:00)
[2020-08-13] MEDS ORDERED: MEMANTINE 10 MG TAB ONE ×2 (00:10→19:41)
[2020-08-13] MEDS ORDERED: ATORVASTATIN 20 MG TAB PO ONE ×2 (00:11→19:41)
[2020-08-13] MEDS: TAMSULOSIN 0.4 MG CAP PO SCH ×2 (00:15→21:01)
[2020-08-13] MEDS: METOPROLOL TARTRATE 25 MG TAB PO SCH ×3 (00:15→21:02)
[2020-08-13] MEDS: SERTRALINE HCL 50 MG TAB PO SCH ×3 (00:16→21:02)
[2020-08-13] MEDS: CLOPIDOGREL 75 MG TAB PO SCH ×2 (00:16→21:01)
[2020-08-13] MEDS ORDERED: BENZOCAINE-MENTH LOZ (CEPACOL) 1 EA LOZ MT PRN (01:22)
[2020-08-13] MEDS ORDERED: ONDANSETRON INJ 4 MG/2 ML VIAL ONE (01:29)
[2020-08-13] MEDS ORDERED: ONDANSETRON INJ 4 MG/2 ML VIAL IV ONE (01:32)
--- NOTE | 2020-08-13 07:15 | RAD ---
EXAM DESCRIPTION: Chest,1 View 08/13/2020 7:12 AM [employer] CLINICAL HISTORY: 80 years, Male, CHF COMPARISON: 08/12/2020 FINDINGS: Single view of the chest was obtained portable. Prior films were compared. Again there is moderate cardiomegaly with upper normal vascularity. Borderline vascular congestion suspected. Additionally there is patchy inflammatory changes suggested peripherally in the right midlung field and possibly in both lung bases. Differential diagnosis would include both early patchy edema or early inflammatory process with peripheral subsolid consolidation. No associated pleural effusions are seen. Slight deterioration since previous study evident. IMPRESSION: CARDIOMEGALY WITH SMALL LUNG BY HIS AND SLIGHT BUT DEFINITE INCREASE IN CENTRAL VASCULARITY SUGGESTING EARLY CARDIAC DECOMPENSATION. PATCHY PERIPHERAL SUBSOLID INFLAMMATORY CHANGES IN THE RIGHT MIDLUNG ZONE AND BOTH LUNG BASES CONSISTENT WITH EARLY EDEMA OR PATCHY NONSEGMENTAL INFILTRATE. NO SIGNIFICANT INTERVAL CHANGE. Electronically signed by: Oleg Ch MD 08/13/2020 7:13 AM [employer]
[2020-08-13] MEDS ORDERED: DEXTROSE 50% 25 GM/50 ML SYG IV PRN (08:07)
[2020-08-13] MEDS ORDERED: GLUCAGON INJ 1 MG VIAL SUBCU PRN (08:07)
[2020-08-13] MEDS: FUROSEMIDE INJ 40 MG/4 ML VIAL IV SCH ×2 (09:50→16:42)
[2020-08-13] MEDS: ZINC 50 MG CAPSULE PO SCH (09:51)
[2020-08-13] MEDS: PANTOPRAZOLE SODIUM TAB 40 MG PO SCH (09:52)
[2020-08-13] MEDS ORDERED: INSULIN LISPRO 100 UNITS/ML PEN SUBCU ONE (09:56)
[2020-08-13] MEDS: INSULIN DETEMIR 100 UNITS/ML PEN SUBCU SCH (10:04)
[2020-08-13] MEDS: LOSARTAN POTASSIUM 25 MG TAB PO SCH (10:05)
[2020-08-13] MEDS: INSULIN LISPRO 100 UNITS/ML PEN SUBCU SCH ×3 (12:15→20:51)
[2020-08-13] MEDS: predniSONE 20 MG TAB PO SCH (12:17)
--- NOTE | 2020-08-13 15:43 | PN ---
SUPERVISING PHYSICIAN: Von Moore MD DATE: 08/13/20 SUBJECTIVE: The patient states he feels a little bit better than he did yesterday. No problems sleeping. No complaints of pain at this time. OBJECTIVE: VITAL SIGNS: Blood pressure 133/52, heart rate 73, respiratory rate 18, temperature 96.6, oxygen saturation around 98% on 2 liters via nasal cannula. GENERAL: Mr. Sorto is an 80-year-old male who is in no active distress. NEUROLOGIC: The patient is alert. LUNGS: Bibasilar rales, but otherwise clear to auscultation bilaterally. CARDIOVASCULAR: Regular rate and rhythm. Normal S1, S2. ABDOMEN: Soft. Positive bowel sounds. GENITOURINARY: Deferred. EXTREMITIES: Lower extremities with 2+ pitting edema. LABORATORY: White count 6.7, hemoglobin 8.6, platelet count 189. Chemistry shows elevated BUN 72, creatinine 4.81. Glucose 311. Potassium 5.7. RADIOLOGY: Chest x-ray is not a whole different than yesterday by my view. ASSESSMENT: 1. Acute exacerbation of congestive heart failure. 2. History of chronic obstructive pulmonary disease with no acute exacerbation. 3. End-stage renal disease with refusal of dialysis in the past, followed by Dr. Celis. 4. Hyperkalemia secondary to end-stage renal disease. 5. Diabetes mellitus, type 2. 6. Hypertension. PLAN: We will continue current diuretics. We will place him on Cozaar 25 mg daily and likely discharge in the morning after recheck of labs. He does have an appointment with Dr. Celis tomorrow at 11:15. We will try to get him out by then so he can go to that appointment. #[id number] [facility]
[2020-08-13] MEDS ORDERED: hydrOXYzine HCl 25 MG TAB PO PRN (16:59)
[2020-08-13] MEDS ORDERED: ATORVASTATIN 20 MG TAB PO SCH (21:00)
[2020-08-13] MEDS ORDERED: MEMANTINE 10 MG TAB PO SCH (21:00)
[2020-08-14] MEDS: PANTOPRAZOLE SODIUM TAB 40 MG PO SCH (05:59)
--- NOTE | 2020-08-14 07:15 | RAD ---
EXAM DESCRIPTION: Chest,1 View 08/14/2020 7:10 AM [facility] CLINICAL HISTORY: 80 years, Male, Follow up chf COMPARISON: 08/13/2020. FINDINGS: Single view of the chest was obtained portable. Prior films were compared. Study is severely compromised due to most likely patient body habitus/stomach within the lung bases and decreased lung volume. External EKG leads within the [id number] limits diagnosis. The heart is prominent. Allowing for the difference in imaging remains the presence of increase interstitial opacities bilaterally. IMPRESSION: SEVERELY COMPROMISED STUDY DUE TO PATIENT BODY HABITUS AND UNDERLYING LOWER CHEST ABDOMEN/OR STRUCTURES. ALLOWING FOR THE DIFFERENCE IN IMAGING REMAINS THE PRESENCE OF PERIPHERAL AREAS OF INTERSTITIAL DENSITY. PREVIOUS DESCRIBED PATCHY PERIPHERAL SOFT SOLID CONFIRMATORY CHANGES ARE NOT WELL DEMONSTRATED DUE TO POOR QUALITY OF THE IMAGING Electronically signed by: Oleg Ch MD 08/14/2020 7:13 AM [facility]
[2020-08-14] MEDS: LOSARTAN POTASSIUM 25 MG TAB PO SCH (08:05)
[2020-08-14] MEDS: predniSONE 20 MG TAB PO SCH (08:05)
[2020-08-14] MEDS: METOPROLOL TARTRATE 25 MG TAB PO SCH (08:05)
[2020-08-14] MEDS: FUROSEMIDE INJ 40 MG/4 ML VIAL IV SCH (08:05)
[2020-08-14] MEDS: INSULIN DETEMIR 100 UNITS/ML PEN SUBCU SCH (08:05)
[2020-08-14] MEDS: SERTRALINE HCL 50 MG TAB PO SCH (08:05)
[2020-08-14] MEDS: INSULIN LISPRO 100 UNITS/ML PEN SUBCU SCH (08:06)
[2020-08-14] MEDS: ZINC 50 MG CAPSULE PO SCH (08:06)
[2020-08-14 08:41] VITALS: BP 162/68; TEMP 99.8; O2SAT 18
--- NOTE | 2020-08-15 12:00 | DS ---
SUPERVISING PHYSICIAN: Von Moore MD DISCHARGE DIAGNOSIS: 1. Acute exacerbation of congestive heart failure. 2. History of chronic obstructive pulmonary disease with no acute exacerbation. 3. End-stage renal disease with refusal of dialysis in the past, followed by Dr. Celis. 4. Hyperkalemia secondary to end-stage renal disease. 5. Diabetes mellitus, type 2. 6. Hypertension. HISTORY OF PRESENT ILLNESS: This is an 80-year-old male patient who presented to the Emergency Room with worsening shortness of breath for 20 hours prior to coming to the Emergency Room. He did not have a cough or fever, but his lower extremities were swelling. He does have a history of end-stage congestive heart failure as well as end-stage chronic obstructive pulmonary disease and end-stage renal disease. He refused dialysis in the past. He had an upper GI bleed last week reported by scope in [place]. He is still on Plavix and was placed on Protonix with empiric antibiotic by the retail salesworker in [place]. He normally wears oxygen at 2 to 3 liters, but requiring 4 liters in the Emergency Room. His hemoglobin is noted to be 7.8 and he was given a unit of blood in the ER along with some Lasix. He was referred for admission. HOSPITAL COURSE: The patient was admitted and placed on congestive heart failure guidelines. He was given diuretics with daily weights and cardiac monitoring. He was given a beta flako and placed on an ARB as opposed to an ZOILA inhibitor. His home medications were verified and his labs were monitored. He progressively improved over the next 24 hours and was continued on his diuretics. He was placed on Cozaar and discharged on that medication. Today, his vital signs are stable. His lab his stable. He has an appointment with Dr. Celis. He will be discharged home on stable condition. LABORATORY: WBCs have been stable at 9.8 with hemoglobin as low as 7.8 and hematocrit 24.3. Hemoglobin is now 9 and hematocrit 27.7. He does have a left shift on his differential. Sodium 140, potassium slightly high at 5.5. Initially BUN 70, creatinine 4.89. Today, BUN is 79 and creatinine is 4.91. His baseline creatinine is around 5 to 5.2. Calcium was low at 7.8 with BNP 417. Urinalysis was unremarkable. Stool for occult blood was positive. MICROBIOLOGY: COVID swab was negative. Influenza type A and B per PCR were both negative. RADIOLOGY: Chest x-ray shows severe compromised due to the patient's body habitus and underlying chest, abdomen structures. Allowing for difference in imaging remains the presence of peripheral areas of interstitial density, previously described peripheral soft solid inflammatory changes are not well demonstrated due to poor quality of the imaging. He will be discharged in stable condition. DISCHARGE PLAN: The patient will be discharged home in stable condition. He is to see Dr. Celis for his appointment today. He will followup with Dr. Fernandez, his primary care physician, in the next 1 to 2 weeks. In addition to his routine medications, he is to have losartan. He is to return to the hospital or followup with Dr. Fernandez for any problems or complications. DISCHARGE MEDICATIONS: 1. Memantine. 2. Sertraline. 3. Metoprolol. 4. Atorvastatin. 5. Plavix. 6. Hydrocodone. 7. Furosemide. 8. Trulicity. 9. Tamsulosin. 10. Glargine insulin. 11. Magnesium. 12. Zinc sulfate. 13. Pantoprazole. 14. Hydralazine. 15. Losartan. #[id number] [facility]
[2020-08-19] MEDS ORDERED: DULAGLUTIDE 0.75 UNIT SC SCH (09:00)
== END 2020-08-14 08:45 | disposition home or self-care (01) | DRG 291 ==
LOC: ER 09:26 → OBSVTOIN 13:30 → MS 13:30
PROVIDERS: ADMIT Nurse Practitioner; ATTEND Nurse Practitioner Acute Care
DX: I11.0 Hypertensive heart disease with heart failure (principal); N18.6 End stage renal disease; K92.2 Gastrointestinal hemorrhage, unspecified; I50.43 Acute on chronic combined systolic (congestive) and diastolic (congestive) heart failure; J44.9 Chronic obstructive pulmonary disease, unspecified; E87.5 Hyperkalemia; E11.22 Type 2 diabetes mellitus with diabetic chronic kidney disease; I50.84 End stage heart failure; N40.0 Benign prostatic hyperplasia without lower urinary tract symptoms; F41.8 Other specified anxiety disorders; Z96.641 Presence of right artificial hip joint; Z88.5 Allergy status to narcotic agent; Z87.891 Personal history of nicotine dependence; Z79.4 Long term (current) use of insulin; Z79.891 Long term (current) use of opiate analgesic; Z79.01 Long term (current) use of anticoagulants; Z79.899 Other long term (current) drug therapy; D63.1 Anemia in chronic kidney disease; Z66 Do not resuscitate

== ENCOUNTER 2020-09-19 13:40 | Emergency (ER) | payer MEDICARE, OTHER ==
[2020-09-19] MEDS ORDERED: SODIUM CHLORIDE 0.9% (FLUSH) 10 ML SYG IV PRN (13:42)
[2020-09-19] MEDS ORDERED: ASPIRIN TABLET 325 MG TAB PO ONE (13:42)
--- NOTE | 2020-09-19 13:43 | ED.PDOC ---
History of Present Illness - General Time Seen by Provider: 09/19/20 13:40 Source: patient, RN notes reviewed, Vital Signs reviewed - History of Present Illness Initial Comments: 80 yo M with CAD, DM, ESRD gets dialysis , , sat comes in with chest pain x 1 hour. started while at dialysis. Not associated with nausea or shortness of breath. Burning pain, left sternum without radiation. Hx of [address] briceno. no prior hx of afib per family. Timing/Duration: 1 hour Severity/Quality: moderate, burning, sharp Location: substernal Chest Pain Radiation: no radiation Activities at Onset: other - dialysis Prior Chest Pain/Cardiac Workup: cardiac cath, heart attack Improving Factors: medication Nitro Today/Relief: 0.4 mg x 1 Aspirin Treatment Today: 325 mg x 1, provided by ED Associated Symptoms: denies symptoms Allergies/Adverse Reactions: Allergies Morphine Adverse Reaction (Verified 06/26/19 13:16) Other Causes patient to be "Wild" Home Medications: Ambulatory Orders Atorvastatin Calcium 40 mg PO BEDTIME 06/11/20 Clopidogrel Bisulfate [Plavix] 75 mg PO BEDTIME 06/11/20 Dulaglutide [Trulicity] 0.75 units SC WKLY 06/11/20 Furosemide 40 mg PO DAILY 06/11/20 Hydrocodone-Acetaminophen [Hydrocodone Bitartrate/AC 10-325 mg] 1 tab PO PRN PRN 06/11/20 Insulin Glargine [Toujeo Solostar] 75 units SC DAILY 06/11/20 Magnesium Oxide 420 mg PO BID PRN 06/11/20 Memantine HCl [Memantine Hydrochloride] 5 mg PO BEDTIME 06/11/20 Metoprolol Tartrate 25 mg PO BID 06/11/20 Sertraline HCl 50 mg PO BID 06/11/20 Tamsulosin [Flomax] 0.4 mg PO BEDTIME 06/11/20 Hydralazine HCl [Hydralazine Hydrochloride] 50 mg PO Q8H PRN 08/12/20 Pantoprazole Sodium [Protonix] 40 mg PO DAILY 08/12/20 Zinc Sulfate [Zinc] 220 mg PO DAILY 08/12/20 Losartan Potassium [Cozaar] 25 mg PO DAILY #30 tab 08/14/20 Review of Systems - Review of Systems Constitutional: Denies: chills, fever EENTM: Denies: blurred vision, throat pain Respiratory: Denies: cough, short of breath Cardiology: States: chest pain, palpitations Gastrointestinal/Abdominal: Denies: abdominal pain, nausea, vomiting Genitourinary: Denies: pain Musculoskeletal: Denies: back pain, muscle pain Skin: Denies: rash Neurological: Denies: numbness, paresthesia Endocrine: Denies: unexplained weight loss Hematologic/Lymphatic: States: easy bleeding. Denies: blood clots, easy bruising Past Medical History (General) - Patient Medical History Hx Seizures: No Hx Stroke: No Hx Dementia: Yes Hx Asthma: No Hx of COPD: Yes Hx Cardiac Disorders: Yes - OK Hx Congestive Heart Failure: Yes Hx Pacemaker: No Hx Hypertension: Yes Hx Thyroid Disease: No Hx Diabetes: Yes Hx Gastroesophageal Reflux: No Hx Renal Disease: No Hx Cancer: No Hx of HIV: No Hx Hepatitis C: No Hx MRSA: No - Vaccination History Hx Tetanus, Diphtheria Vaccination: Yes Hx Influenza Vaccination: No Hx Pneumococcal Vaccination: Yes - Social History Hx Tobacco Use: Yes Hx Chewing Tobacco Use: No Hx Alcohol Use: No Hx Substance Use: No Hx Substance Use Treatment: No Hx Depression: No Hx Physical Abuse: No Hx Emotional Abuse: No Hx Suspected Abuse: No - Female History Patient : No Family Medical History - Family History Father Family History: Unknown Living Status: Hx Family Asthma: No Hx Family Congestive Heart Failure: No Hx Family Hypertension: Yes Hx Cardiac Disease: Yes Physical Exam - Physical Exam General Appearance: Alert, Comfortable, No apparent distress, Obese, Well Developed, Well Groomed, Well Hydrated, Well Nourished Eyes, Ears, Nose, Throat Exam: normal ENT inspection Neck: non-tender, full range of motion, supple, normal inspection Respiratory: chest non-tender, lungs clear, normal breath sounds, no respiratory distress Cardiovascular/Chest: normal peripheral pulses, no edema, no gallop, no JVD, no murmur, tachycardia, irregularly irregular Peripheral Pulses: radial,right: 2+, radial,left: 2+ Gastrointestinal/Abdominal: normal bowel sounds, non tender, soft, no organomegaly, no pulsatile mass, other - midline hernia noted Rectal Exam: deferred Extremity: normal range of motion, non-tender, normal inspection, no calf tenderness, normal capillary refill Neurologic: bereavement counselor II-XII nml as tested, no motor/sensory deficits, alert, normal mood/affect, oriented x 3 Skin Exam: normal color, warm/dry Progress - Progress Progress: 09/19/20 15:13 cardiac score 6. patient given 10 mg metoprolol, as he also may have acute coronary syndrome. give 325 mg aspirin for chest pain. Received one nitro at dialysis. BP borderline with systolic at 100, still in afib with rvr. No prior history of afib. Will give 10 mg of diltiazem due to bp. The data reviewed when caring for this patient included: nurse notes, prior records, etc. The history and assessments from nurses notes were reviewed and considered, and the patient's home medication list was also reviewed and considered. My assessment and the results of testing completed here in the ED were discussed with the patient/family. All questions were answered, and they express understanding of my assessment and the plan. Rita Lanier DO #[id number] 09/19/20 15:30 09/19/20 15:31 - Results/Orders Results/Orders: 09/19/20 13:42 IV Care:Saline Lock per Protoc QSHIFT Telemetry .ONCE Sodium Chloride 0.9% (Flush) [Saline Flush Syringe] 10 ml IV PRN PRN EKG Stat Pulse Ox Stat 09/19/20 14:00 B-TYPE NATRIURETIC PEPTIDE/BNP Stat CARDIAC PANEL,ER Stat HEPATIC FUNCTION PANEL Stat 09/19/20 14:40 Magnesium Sulfate Inj 1 gm Sodium Chloride 0.9% 100Ml [NS (NACL 0.9%) 100ml] 100 ml IVPB ONCE Laboratory Results WBC 13.2 K/mm3 (4.8-10.8) H 09/19/20 14:00 RBC 3.78 M/mm3 (4.70-6.10) L 09/19/20 14:00 Hgb 10.5 gm/dL (14.0-18.0) L 09/19/20 14:00 Hct 33.2 % (42.0-52.0) L 09/19/20 14:00 MCV 87.9 fl (80.0-94.0) 09/19/20 14:00 MCH 27.8 pg (27.0-31.0) 09/19/20 14:00 MCHC 31.6 g/dL (33.0-37.0) L 09/19/20 14:00 RDW 18.7 % (11.5-14.5) H 09/19/20 14:00 Plt Count 72 K/mm3 (130-400) L 09/19/20 14:00 MPV 7.7 fl (7.40-10.4) 09/19/20 14:00 Absolute Neuts (auto) 10.70 K/uL (1.8-6.8) H 09/19/20 14:00 Absolute Lymphs (auto) 1.30 K/uL (1.0-3.4) 09/19/20 14:00 Absolute Monos (auto) 0.90 K/uL (0.2-0.8) H 09/19/20 14:00 Absolute Eos (auto) 0.20 K/uL (0.0-0.4) 09/19/20 14:00 Absolute Basos (auto) 0.10 K/uL (0.0-0.1) 09/19/20 14:00 Neutrophils % 80.9 % (42.0-78.0) H 09/19/20 14:00 Lymphocytes % 9.8 % (20.0-50.0) L 09/19/20 14:00 Monocytes % 6.7 % (2.0-9.0) 09/19/20 14:00 Eosinophils % 1.8 % (1.0-5.0) 09/19/20 14:00 Basophils % 0.8 % (0.0-2.0) 09/19/20 14:00 PT 9.9 SECONDS (9.0-10.9) 09/19/20 14:00 INR 1.00 (0.9-1.15) 09/19/20 14:00 PTT (SP) 33.4 SECONDS (21.8-31.6) H 09/19/20 14:00 Sodium 136 mmol/L (135-145) 09/19/20 14:00 Potassium 3.0 mmol/L (3.6-5.0) L 09/19/20 14:00 Chloride 92 mmol/L (101-111) L 09/19/20 14:00 Carbon Dioxide 29 mmol/L (21-31) 09/19/20 14:00 Anion Gap 18.0 (12-18) 09/19/20 14:00 BUN 23 mg/dL (7-18) H 09/19/20 14:00 Creatinine 2.47 mg/dL (0.6-1.3) H 09/19/20 14:00 BUN/Creatinine Ratio 9.3 (10-20) L 09/19/20 14:00 Random Glucose 146 mg/dL (70-105) H 09/19/20 14:00 Serum Osmolality 278.3 mOsm/L (275-295) 09/19/20 14:00 Calcium 8.4 mg/dL (8.4-10.2) 09/19/20 14:00 Magnesium 2.0 mg/dL (1.8-2.5) 09/19/20 14:00 Total Bilirubin 1.0 mg/dL (0.2-1.0) 09/19/20 14:00 Direct Bilirubin 0.2 mg/dL (0-0.2) 09/19/20 14:00 Indirect Bilirubin 0.8 mg/dL (0.2-0.8) 09/19/20 14:00 AST 22 IU/L (10-42) 09/19/20 14:00 ALT 13 IU/L (10-60) 09/19/20 14:00 Alkaline Phosphatase 112 IU/L (42-121) 09/19/20 14:00 Creatine Kinase 47 IU/L (38-174) 09/19/20 14:00 CK-MB (CK-2) 2.6 ng/mL (0.0-4.4) 09/19/20 14:00 Troponin I 0.06 ng/mL (0.01-0.05) H 09/19/20 14:00 B-Natriuretic Peptide 396.0 pg/ml (0-100) H* 09/19/20 14:00 Serum Total Protein 7.1 gm/dL (6.4-8.2) 09/19/20 14:00 Albumin 3.8 g/dl (3.2-5.5) 09/19/20 14:00 TSH 1.77 uIU/mL (0.34-5.60) 09/19/20 14:00 - EKG/XRAY/CT EKG: Atrial, Tachy - 160, Fibrillation, RBBB, Changed from - bifasciular block unchanged from 06/22/20 Comments: LAFB XRAY: chest Departure - Departure Clinical Impression: Chronic respiratory failure with hypoxia, on home O2 therapy, New onset atrial fibrillation, Atrial fibrillation with rapid ventricular response, Thrombocytopenia Chest pain Qualifiers: Chest pain type: unspecified Qualified Code(s): R07.9 - Chest pain, unspecified Chronic renal failure Qualifiers: Chronic kidney disease stage: stage 5 Qualified Code(s): N18.5 - Chronic kidney disease, stage 5 Time of Disposition: 15:51 Disposition: Transfer to Hospital Condition: Fair Diet: diabetic diet Referrals: MANASA REES MD [Primary Care Provider] - 1-2 Weeks Home Medications: Ambulatory Orders Atorvastatin Calcium 40 mg PO BEDTIME 06/11/20 Clopidogrel Bisulfate [Plavix] 75 mg PO BEDTIME 06/11/20 Dulaglutide [Trulicity] 0.75 units SC WKLY 06/11/20 Furosemide 40 mg PO DAILY 06/11/20 Hydrocodone-Acetaminophen [Hydrocodone Bitartrate/AC 10-325 mg] 1 tab PO PRN PRN 06/11/20 Insulin Glargine [Toujeo Solostar] 75 units SC DAILY 06/11/20 Magnesium Oxide 420 mg PO BID PRN 06/11/20 Memantine HCl [Memantine Hydrochloride] 5 mg PO BEDTIME 06/11/20 Metoprolol Tartrate 25 mg PO BID 06/11/20 Sertraline HCl 50 mg PO BID 06/11/20 Tamsulosin [Flomax] 0.4 mg PO BEDTIME 06/11/20 Hydralazine HCl [Hydralazine Hydrochloride] 50 mg PO Q8H PRN 08/12/20 Pantoprazole Sodium [Protonix] 40 mg PO DAILY 08/12/20 Zinc Sulfate [Zinc] 220 mg PO DAILY 08/12/20 Losartan Potassium [Cozaar] 25 mg PO DAILY #30 tab 08/14/20 Transfer to Outside Facility - Transfer Information Decision to Transfer Date: 09/19/20 Decision to Transfer Time: 14:15 Reason for Transfer: required specialist not available Accepting Facility: [facility]
[2020-09-19] MEDS ORDERED: METOPROLOL TARTRATE INJ 5 MG/5 ML VIAL IV ONE ×2 (14:01→14:08)
--- NOTE | 2020-09-19 14:28 | RAD ---
Study: Single Frontal Radiograph of the Chest. Indication:cp Comparison: August 14, 2020 Impression: Technically limited examination due to body habitus. New right IJ catheter tip terminates in the SVC. Marked cardiomegaly. Mild to moderate interstitial edema with bibasilar opacities which could reflect edema, pneumonia, or atelectasis. Changes appear similar to the prior. No definite pleural effusion or pneumothorax. Electronically signed by: Ronaldo Payne MD 09/19/2020 2:14 PM [employer]
[2020-09-19] MEDS ORDERED: MAGNESIUM SULFATE INJ 1 GM in SODIUM CHLORIDE 0.9% 100ML 100 ML IVPB ONE (14:40)
[2020-09-19] MEDS ORDERED: POTASSIUM CHLORIDE ELIXIR 20 MEQ/15 ML UD PO ONE (14:41)
[2020-09-19 16:00] VITALS: BP 100/51; TEMP 97.3; O2SAT 96
== END 2020-09-19 15:57 | disposition short-term general hospital (02) ==
LOC: ER 13:40
DX: I48.91 Unspecified atrial fibrillation (principal); R00.0 Tachycardia, unspecified; J96.11 Chronic respiratory failure with hypoxia; R07.9 Chest pain, unspecified; D69.6 Thrombocytopenia, unspecified; N18.5 Chronic kidney disease, stage 5; I45.2 Bifascicular block; E11.22 Type 2 diabetes mellitus with diabetic chronic kidney disease; I13.2 Hypertensive heart and chronic kidney disease with heart failure and with stage 5 chronic kidney disease, or end stage renal disease; I50.9 Heart failure, unspecified; I25.2 Old myocardial infarction; F03.90 Unspecified dementia, unspecified severity, without behavioral disturbance, psychotic disturbance, mood disturbance, and anxiety; Z79.899 Other long term (current) drug therapy; Z79.4 Long term (current) use of insulin; Z88.5 Allergy status to narcotic agent; Z99.81 Dependence on supplemental oxygen; Z99.2 Dependence on renal dialysis
CPT/HCPCS: 36415; 71045; 80048; 80076; 82550; 82553; 83880; 84443; 84484; 85025; 85610; 85730; 93005; A4216; J3475; J7050